=== PATIENT | male | born 1965 | race Caucasian/White ===

== ENCOUNTER 2018-03-11 15:19 | Inpatient (IN) | payer BC, OTHER ==
[2018-03-11] MEDS ORDERED: NS 0.9% 1000 ML* 1,000 ML IV ONE ×2 (15:34→17:11)
[2018-03-11 16:55] LABS: ALT 35 U/L (7-52); AST 23 U/L (13-39); Albumin 4.6 g/dL (3.2-5.2); Albumin/Globulin Ratio 1.2 (1-3); Alkaline Phosphatase 155 U/L (34-104); BUN/Creatinine Ratio 21.8 (8-20); Blood Urea Nitrogen 43 mg/dL (6-24); Calcium 9.1 mg/dL (8.6-10.3); Chloride 89 mmol/L (101-111); EGFR African American 43.8 (>60); EGFR Non-African American 36.2 (>60); Globulin 3.7 g/dL (2-4); Magnesium 2.7 mg/dL (1.9-2.7); Sodium 127 mmol/L (135-145); Total Protein 8.3 g/dL (6.4-8.9)
[2018-03-11 16:57] LABS: Influenza A Molecular NEGATIVE (Negative); Influenza B Molecular NEGATIVE (Negative)
--- NOTE | 2018-03-11 17:01 | ED ---
Influenza-Like Illness - HPI Summary HPI Summary: A 52 y/o male brought in by ambulance presents to the ED c/o the stomach flu reaching 5/10 in severity. In the ED room, the patient has a pulse of 109 BPM, O2 saturation of 100%, and blood pressure of 145/73. As per triage, "Patient states he was diagnosed with the stomach flu at and a right ear infection on . Patient was given amox rx". According to the patient, he was swabbed for the stomach flu but it came back negative. He stated that he has been sick since Wednesday. Additionally, is blood sugar is high as he is diabetic. Patient denies any headache, but does have blurred vision (brightness) , sore thraot, chest pain, back pain, and lower leg pain. He stated that he has an right ear infection. Patient stated that he is the only one sick at home. Patient denies any diarrhea, rash, bruising, anxiety, or depression, but has been vomiting. - History of Current Complaint Chief Complaint: EDGeneral Hx Obtained From: Patient Onset/Duration: Sudden Onset, Lasting Days, Still Present Severity: Moderate - 5/10 Associated Signs & Symptoms: Fever, Myalgia, Sore Throat, Vomiting - Allergy/Home Medications Allergies/Adverse Reactions: Allergies Allergy/AdvReac Type Severity Reaction Status Date / Time cephalexin [From Keflex] Allergy Rash Verified 03/11/18 16:29 PMH/Surg Hx/FS Hx/Imm Hx Endocrine/Hematology History: Reports: Hx Diabetes Cardiovascular History: Reports: Hx Hypercholesterolemia Sensory History: Reports: Hx Contacts or Glasses Opthamlomology History: Reports: Hx Contacts or Glasses Infectious Disease History: Yes Infectious Disease History: Denies: Traveled Outside the [place] in Last 30 Days - Family History Known Family History: Negative: Diabetes - Social History Alcohol Use: Daily Alcohol Amount: 8-16oz liquor, last drink was wednesday Substance Use Type: Reports: None Smoking Status (MU): Former Smoker Review of Systems Positive: Fever, Chills Positive: Blurred Vision, Other - NEGATIVE: DOUBLE VISION Positive: Sore Throat, Ear Ache - DUE TO EAR INFECTION IN RIGHT EAR Positive: Chest Pain Positive: Shortness Of Breath Positive: Vomiting, Other - NEGATIVE: BLOOD IN STOOL, CONSTIPATION. Negative: Abdominal Pain Negative: dysuria, hematuria Positive: Other - POSITIVE: BACK PAIN; NEGATIVE: NECK PAIN. Negative: Edema Negative: Rash, Bruising Negative: Headache Negative: Anxious, Depressed All Other Systems Reviewed And Are Negative: No Physical Exam - Summary Physical Exam Summary: Appearance: Alert, conversive, nontoxic appearing Skin: Warm, dry, no mottling, no rashes, no contusions HEENT: EOMI, PERRL, dry mucous membranes Neck: No masses on the neck, supple Respiratory: Clear to auscultation, breath sounds present, no rales, no rhonchi , no wheezes, dekipnic Cardiovascular: tachycardic, pulses are symmetrical in both lower and upper extremities Abdomen: Soft, non-tender Bowel Sounds: Present Musculoskeletal: No CVA tenderness, no obvious deformity, moving all extremities in a grossly normal manner Neurological: A&Ox3, CN II-XII Intact, moving all extremities symmetrically Psychiatric: Normal affect and mood Triage Information Reviewed: Yes Vital Signs On Initial Exam: Initial Vitals Temp Pulse Resp BP Pulse Ox 97.6 F 110 32 145/73 100 03/11/18 15:32 03/11/18 15:32 03/11/18 15:32 03/11/18 15:32 03/11/18 15:32 Vital Signs Reviewed: Yes Diagnostics - Vital Signs Vital Signs Temp Pulse Resp BP Pulse Ox 03/11/18 16:00 112 28 100 03/11/18 15:36 110 33 145/73 99 03/11/18 15:35 16 03/11/18 15:32 97.6 F 110 32 145/73 100 - Laboratory Result Diagrams: 03/11/18 16:14 03/11/18 16:14 Lab Statement: Any lab studies that have been ordered have been reviewed, and results considered in the medical decision making process. - Radiology CXR Radiology Interpretation Completed By: Radiologist Summary of Radiographic Findings: No evidence for acute intrathoracic disease. ED PHYSICIAN REVIEWED THIS RADIOLOGY REPORT. Flu Symptom Course/Dx - Course Course Of Treatment: A 52 y/o male brought in by ambulance presents to the ED c/ o the stomach flu reaching 5/10 in severity. A CXR revealed no evidence for acute intrathoracic disease. Hematology, Chemistry, and serology screens were done. Laboratory findings significant for high WBC of 23.1, hyperglycemia pf 756 , and high lactic acid 3.8. Influenza screens were negative. In the ED course, the patient received Insulin, Levaquin, Vancomycin, and IV fluids. Patient care was discussed with Dr. Lock, who accepts patient for admission. Patient will be admitted with a diagnosis of DKA. Patient is agreeable with this plan. - Diagnoses Provider Diagnoses: DKA (diabetic ketoacidosis) - Physician Notifications Discussed Care Of Patient With: Jr Lock Time Discussed With Above Provider: 17:20 Instructed by Provider To: Other - ACCEPTS PATIENT FOR ADMISSION. Discharge - Sign-Out/Discharge Documenting (check all that apply): Patient Departure - ADMIT, Sign-Out Patient - TORRI Signing out patient TO: Jr Lock Receiving patient FROM: Ronna Kinney - Discharge Plan Condition: Stable Disposition: ADMITTED TO [facility] Referrals: Danny Berkowitz MD [Primary Care Provider] - - Attestation Statements Document Initiated by Scribe: Yes Documenting Scribe: Corky Andrea Provider For Whom Scribe is Documenting (Include Credential): Ronna Kinney MD Scribe Attestation: Corky Floyd, scribed for Ronna Kinney MD on 03/11/18 at 1728. Status of Scribe Document: Ready
[2018-03-11 17:04] LABS: CO2 Carbon Dioxide < 7 mmol/L (22-32); Glucose 756 mg/dL (70-100); Hematocrit 54 % (42-52); Hemoglobin 16.6 g/dl (14.0-18.0); Mean Corpuscular HGB Conc 31 g/dl (31-36); Mean Corpuscular Hemoglobin 32 pg (27-31); Mean Corpuscular Volume 103 fL (80-94); Mean Platelet Volume 7.6 fL (7.4-10.4); Platelet Count 303 10^3/ul (150-450); Potassium 6.4 mmol/L (3.5-5.0); Red Blood Count 5.22 10^6/ul (4.00-5.40); Red Cell Distribution Width 14 % (10.5-15); White Blood Count 23.1 10^3/ul (3.5-10.8)
[2018-03-11] MEDS ORDERED: Vancomycin(*) 1,000 MG in NS 0.9% 250 ML* 250 ML IVPB ONE (17:06)
[2018-03-11] MEDS ORDERED: Levofloxacin 750 MG IVPREMIX(* 750 MG/150 ML BAG IVPB ONE (17:08)
[2018-03-11] MEDS ORDERED: Insulin IVPB 100 units/100 ml 100 UNITS/100 ML UNIT IVPB ONE (17:12)
[2018-03-11 17:29] LABS: TSH (Thyroid Stimulating Horm) 1.36 mcIU/mL (0.34-5.60)
[2018-03-11 17:33] LABS: ABS Basophils 0.3 10^3/ul (0-0.2); ABS Eosinophils 0 10^3/ul (0-0.6); ABS Lymphocytes 1.9 10^3/ul (1.0-4.8); ABS Monocytes 2.9 10^3/ul (0-0.8); ABS Nucleated RBC 0 10^3/ul; Eosinophil % 0.1 %; Lymphocyte % 8.1 %; Nucleated Red Blood Cells % 0
[2018-03-11] MEDS ORDERED: Acetaminophen TAB* 325 MG PO PRN (18:12)
[2018-03-11] MEDS ORDERED: Lactated Ringers 1000 ML Bag* 1,000 ML IV SCH ×3 (18:15→23:29)
--- NOTE | 2018-03-11 18:38 | HP ---
H&P (Free Text) History and Physical: [facility] History and Physical CC: flu like symptoms HPI: 52M with DM, HLD presents with what he calls the stomach flu. He has had nausea and has not been able to tolerate po. He was told he also has an ear infection and was given amoxicillin as an outpatient. He states that since hasnt been able to tolerate food he has not taken his insulin. In the ER he was found to be in DKA with a serum bicarb of < 7. His glucose was 750. He was in acute renal failure. The patient was start on iv fluids and an insulin gtt. He was given vanco/levaquin. He states that he drinks up to 16 oz of hard liquor per day. His last drink was on wednesday. ROS - as per HPI PMHx - hld, dm PSHx - denies All - cephalexin, sulfa SocHX - former smoker, +alcohol abuse, no drugs FamHx - heart disease PE Vital Signs: Temp Pulse Resp BP Pulse Ox 97.6 F 106 28 146/89 100 03/11/18 15:32 03/11/18 17:00 03/11/18 17:00 03/11/18 16:12 03/11/18 17:00 Gen - adult male, acutely ill heent - ncat, eomi, perrl neck - no jvd cv - s1/s2, tachy pulm - cta, no wheeze abd - soft, nt ext - no cce neuro - non-focal Labs Laboratory Results - last 24 hr 03/11/18 03/11/18 03/11/18 16:14 16:14 16:14 WBC 23.1 H RBC 5.22 Hgb 16.6 Hct 54 H MCV 103 H MCH 32 H MCHC 31 RDW 14 Plt Count 303 MPV 7.6 Neut % (Auto) 78.0 Lymph % (Auto) 8.1 Rankin % (Auto) 12.6 Eos % (Auto) 0.1 Baso % (Auto) 1.2 Absolute Neuts (auto) 18.0 H Absolute Lymphs (auto) 1.9 Absolute Monos (auto) 2.9 H Absolute Eos (auto) 0 Absolute Basos (auto) 0.3 H Absolute Nucleated RBC 0 Nucleated RBC % 0 VBG pH VBG pCO2 VBG pO2 VBG HCO3 VBG O2 Saturation VBG Base Excess Sodium 127 L Potassium 6.4 H* Chloride 89 L Carbon Dioxide < 7 L* Anion Gap Not Reportable BUN 43 H Creatinine 1.97 H Est GFR ( Amer) 43.8 Est GFR (Non-Af Amer) 36.2 BUN/Creatinine Ratio 21.8 H Glucose 756 H* Lactic Acid 3.8 H* Calcium 9.1 Magnesium 2.7 Total Bilirubin 0.40 AST 23 ALT 35 Alkaline Phosphatase 155 H Total Protein 8.3 Albumin 4.6 Globulin 3.7 Albumin/Globulin Ratio 1.2 TSH 1.36 Influenza A (Rapid) Influenza B (Rapid) 03/11/18 03/11/18 16:45 18:01 WBC RBC Hgb Hct MCV MCH MCHC RDW Plt Count MPV Neut % (Auto) Lymph % (Auto) Rankin % (Auto) Eos % (Auto) Baso % (Auto) Absolute Neuts (auto) Absolute Lymphs (auto) Absolute Monos (auto) Absolute Eos (auto) Absolute Basos (auto) Absolute Nucleated RBC Nucleated RBC % VBG pH < 7.00 L VBG pCO2 30 L VBG pO2 39.0 VBG HCO3 TNP VBG O2 Saturation 70.4 VBG Base Excess TNP Sodium Potassium Chloride Carbon Dioxide Anion Gap BUN Creatinine Est GFR ( Amer) Est GFR (Non-Af Amer) BUN/Creatinine Ratio Glucose Lactic Acid Calcium Magnesium Total Bilirubin AST ALT Alkaline Phosphatase Total Protein Albumin Globulin Albumin/Globulin Ratio TSH Influenza A (Rapid) Negative Influenza B (Rapid) Negative Imaging IMPRESSION: #. No evidence for acute intrathoracic disease. Impression 52M with hld, dm, etoh abuse presents with DKA precipitated by an ear infection Plan DKA - npo - aggressive iv hydration - insulin gtt - fs q1h - serial bmp, mg, phos - anti-emetics prn - pain control etoh abuse - monitor for withdrawal - WA protocol - ativan prn - thiamine/folate/mvi - sw consult ear infection - c/w augmentin lines - piv ppx - gi/dvt full code Admit to ICU Critical Care Time: 55 mins
[2018-03-11] MEDS ORDERED: Levofloxacin 750 MG IVPREMIX(* 750 MG/150 ML BAG IVPB SCH (19:00)
[2018-03-11] MEDS ORDERED: Insulin IVPB 100 units/100 ml 100 UNITS/100 ML UNIT IVPB SCH ×2 (19:00)
[2018-03-11] MEDS ORDERED: LORazepam INJ* 2 MG/ML 1 ML VIAL IM SCH (19:00)
[2018-03-11] MEDS ORDERED: Amoxicillin/Clavulanate TAB* 875 MG PO SCH (21:00)
[2018-03-11] MEDS ORDERED: Omeprazole CAP(NF) 10 MG CAP PO SCH (21:00)
[2018-03-11 23:01] LABS: BUN/Creatinine Ratio 25.2 (8-20); Blood Urea Nitrogen 51 mg/dL (6-24); Calcium 8.6 mg/dL (8.6-10.3); Chloride 97 mmol/L (101-111); EGFR African American 42.5 (>60); EGFR Non-African American 35.1 (>60); Magnesium 2.6 mg/dL (1.9-2.7); Phosphorus 3.5 mg/dL (2.5-5.0); Sodium 132 mmol/L (135-145)
[2018-03-11 23:15] LABS: CO2 Carbon Dioxide < 7 mmol/L (22-32); Glucose 628 mg/dL (70-100); Potassium 5.5 mmol/L (3.5-5.0)
--- NOTE | 2018-03-11 23:31 | PN ---
Hospitalist Progress Note Date of Service: 03/11/18 Glucose and potassium trending down, but bicarb still <7. Will add bicarb drip and repeat BMP at 2 AM.
[2018-03-12] MEDS ORDERED: Sodium Bicarbonate 8.4% IV* 50 MEQ in NS 0.9% 1000 ML* 1,000 ML IV ONE (00:30)
[2018-03-12 02:01] LABS: BUN/Creatinine Ratio 28.1 (8-20); Calcium 8.6 mg/dL (8.6-10.3); EGFR African American 45.1 (>60); EGFR Non-African American 37.3 (>60); Potassium 4.4 mmol/L (3.5-5.0)
[2018-03-12 02:50] LABS: Urine Appearance Cloudy; Urine Bacteria Absent (Absent); Urine Bilirubin Negative (Negative); Urine Blood 2+ (Negative); Urine Color Yellow; Urine Glucose 3+(>=500 mg/dL) (Negative); Urine Ketones 2+ (Negative); Urine Nitrite Negative (Negative); Urine Protein 1+(30 mg/dL) (Negative); Urine Red Blood Cell Trace(0-2/hpf) (Absent); Urine Specific Gravity 1.017 (1.010-1.030); Urine Urobilinogen Negative (Negative); Urine White Blood Cell Trace(0-5/hpf) (Absent)
[2018-03-12] MEDS ORDERED: Piperacillin/Tazobac ADVAN(*) 3.375 GM in NS 0.9% 100 ML* 100 ML IVPB ONE (03:30)
[2018-03-12] MEDS ORDERED: Zosyn per Pharmacy* NOTE FOLLOW UP SCH (04:00)
[2018-03-12] MEDS ORDERED: D5LR 1000 ML BAG* 1,000 ML IV SCH (05:00)
[2018-03-12 05:29] LABS: Hematocrit 43 % (42-52); Hemoglobin 14.6 g/dl (14.0-18.0); Mean Corpuscular HGB Conc 34 g/dl (31-36); Mean Corpuscular Hemoglobin 31 pg (27-31); Mean Corpuscular Volume 92 fL (80-94); Mean Platelet Volume 6.6 fL (7.4-10.4); Platelet Count 196 10^3/ul (150-450); Red Blood Count 4.67 10^6/ul (4.00-5.40); Red Cell Distribution Width 13 % (10.5-15); White Blood Count 15.8 10^3/ul (3.5-10.8)
[2018-03-12 05:44] LABS: Anion Gap 11 mmol/L (2-11); BUN/Creatinine Ratio 30.4 (8-20); Blood Urea Nitrogen 51 mg/dL (6-24); CO2 Carbon Dioxide 19 mmol/L (22-32); Calcium 8.3 mg/dL (8.6-10.3); Chloride 110 mmol/L (101-111); EGFR African American 52.6 (>60); EGFR Non-African American 43.5 (>60); Glucose 203 mg/dL (70-100); Potassium 3.8 mmol/L (3.5-5.0); Sodium 140 mmol/L (135-145)
[2018-03-12 05:45] LABS: Phosphorus < 1.0 mg/dL (2.5-5.0)
[2018-03-12 05:52] LABS: Lymphocytes % 9 %; Metamyelocytes % 1 % (0-2); Monocytes % 4 %; Myelocytes % 2 % (0-1); Neutrophil % 75 %
[2018-03-12 05:53] LABS: Immature Granulocytes 12 % (0-9)
[2018-03-12 05:54] LABS: ABS Neutrophils 13.75 10^3/ul (1.5-7.7)
[2018-03-12] MEDS ORDERED: Potassium Phosphate IV* 15 MMOLE in NS 0.9% 250 ML* 250 ML IVPB ONE (06:00)
[2018-03-12] MEDS: Insulin IVPB 100 units/100 ml 100 UNITS/100 ML UNIT IVPB SCH ×3 (07:12→19:20)
[2018-03-12] MEDS: ZOSYN 3.375 GM Q8H per EXTENDED INFUSION IVPB SCH ×6 (07:36→23:35)
[2018-03-12] MEDS: Multivitamins/Minerals TAB PO SCH (07:37)
[2018-03-12] MEDS: Folic Acid TAB* 1 MG PO SCH (07:37)
[2018-03-12] MEDS: Potassium & Sodium Phos 250MG* = 1 PACKET PO SCH ×3 (07:37→21:13)
[2018-03-12] MEDS: Aspirin EC TAB* 81 MG TAB.EC PO SCH (07:37)
[2018-03-12] MEDS: Thiamine TAB* 100 MG TAB PO SCH (07:37)
[2018-03-12 11:24] LABS: BUN/Creatinine Ratio 25.8 (8-20); Calcium 8.1 mg/dL (8.6-10.3); EGFR African American 57.7 (>60); EGFR Non-African American 47.7 (>60); Potassium 4.1 mmol/L (3.5-5.0)
[2018-03-12 11:48] LABS: Phosphorus 1.9 mg/dL (2.5-5.0)
[2018-03-12] MEDS ORDERED: Insulin GLARGINE(*) 1 UNITS UNIT SUBCUT ONE (12:33)
[2018-03-12] MEDS ORDERED: Potassium Phosphate IV* 10 MMOLE in NS 0.9% 250 ML* 250 ML IVPB ONE (12:36)
--- NOTE | 2018-03-12 13:02 | PN ---
Date of Service: 03/12/18 - [facility] note Critical Care Services: Pt seen and examined at bedside, pt admitted for DKA. Pt denied any complaints this am other than fatigue 52 y o m with h/o DM, HLD presented with stomach flu. He had an ear infection and was given amoxicillin as an outpatient. He was not been able to tolerate food, has not taken his insulin. He was found to be in severe DKA with metabolic acidosis, serum bicarb of < 7. His glucose on admission was 750, was in acute renal failure. Patient received iv fluids and an insulin gtt. He was given vanco/levaquin. He states that he drinks up to 16 oz of hard liquor per day, last drink was on Wednesday. Pt reported that he doesnot stay complaint with Insulin when he drinks. Active Medications Generic Name Dose Route Start Last Admin Trade Name Freq PRN Reason Stop Dose Admin Acetaminophen 650 mg 03/11/18 18:12 Tylenol Tab* PO Q4H PRN PAIN Al Hydrox/Mg Hydrox/Simethicone 30 ml 03/11/18 18:13 Maalox Plus* PO Q4H PRN INDIGESTION Aspirin 81 mg 03/12/18 09:00 03/12/18 07:37 Aspirin Ec Tab* PO 81 mg DAILY JINA Administration Atorvastatin Calcium 10 mg 03/12/18 17:00 Lipitor* PO 1700 JINA Protocol Folic Acid 1 mg 03/12/18 09:00 03/12/18 07:37 Folvite Tab* PO 1 mg DAILY JINA Administration Piperacillin Sod/Tazobactam 100 mls @ 25 mls/hr 03/12/18 08:00 03/12/18 07:36 Sod 3.375 gm/ Sodium Chloride IVPB 25 mls/hr Q8H JINA Administration Dextrose/Lactated Ringer's 1,000 mls @ 100 mls/hr 03/12/18 05:00 03/12/18 05: 07 D5lr 1000 Ml Bag* IV 100 mls/hr PER RATE JINA Administration Insulin Human Regular 100 units in 100 mls @ 17 mls/hr 03/12/18 07:00 07:12 Insulin Regular Iv Drip 1 Unit/Ml IVPB 8.6 mls/hr Q6H JINA Administration Protocol Potassium Phosphate 10 mmole/ 253.3333 mls @ 42 mls/hr 03/12/18 12:36 Sodium Chloride IVPB 03/12/18 18:37 ONCE ONE Insulin Glargine 20 units 03/13/18 13:00 Lantus(*) SUBCUT Q24H [facility] Lorazepam 0 - 6 mg 03/11/18 19:00 Ativan Inj* IM .PER [facility] PROTOCOL [facility] Protocol Morphine Sulfate 2 mg 03/11/18 18:11 Morphine Vial* IV Q2H PRN PAIN Multivitamins/Minerals 1 tab 03/12/18 09:00 03/12/18 07:37 Theragran/Minerals Tab* PO 1 tab DAILY JINA Administration Ondansetron HCl 4 mg 03/11/18 18:12 Zofran Inj* IV Q6H PRN NAUSEA Pantoprazole Sodium 40 mg 03/12/18 21:00 Protonix Tab (Nf) PO BEDTIME [facility] Pharmacy Consult 1 note 03/12/18 04:00 Zosyn Per Pharmacy* FOLLOW UP .ZOSYN PER PHARMACY [facility] Potassium Phos/Sodium Phos 250 mg 03/12/18 09:00 03/12/18 07:37 Neutra Phos 250 Mg Avelino* PO 250 mg TID JINA Administration Thiamine HCl 100 mg 03/12/18 09:00 03/12/18 07:37 Vitamin B-1 Tab* PO 100 mg DAILY JINA Administration Vital Signs: Temp Pulse Resp BP SpO2 FiO2 97.8 F 94 23 115/69 95 03/12/18 12:54 03/12/18 12:30 03/12/18 12:30 03/12/18 12:30 03/12/18 12:30 Physical Exam: Gen: Pt sitting in chair in NAD HEENT:PERRLA, no JVD Lungs: Clear to auscultation b/l Cardiac: S1, S2+, regular Abdomen: Soft, BS+ Extremities: Normal ROM Neuro: Alert, awake, no deficits Fluid Balance (Past 24 Hours): I= 60 O= 850 Net -790 Intake & Output 03/10/18 03/11/18 03/12/18 03/13/18 06:59 06:59 06:59 06:59 Intake Total 3358 60 Output Total 775 850 Balance 2583 -790 Weight 181 lb 3.52 oz Intake: IV Fluids 2862 D5W LR 140 LR 1719 NS (0.9%) 3 IVPB 360 ABX - VANCOMYCIN 250 ABX - ZOSYN 110 Medicated IV 136 CC - Insulin 136 Oral 0 60 Output: Urine 775 850 Labs: Laboratory Results - last 24 hr 03/11/18 03/11/18 03/11/18 16:14 16:14 16:14 WBC 23.1 H RBC 5.22 Hgb 16.6 Hct 54 H MCV 103 H MCH 32 H MCHC 31 RDW 14 Plt Count 303 MPV 7.6 Neut % (Auto) 78.0 Lymph % (Auto) 8.1 [place] % (Auto) 12.6 Eos % (Auto) 0.1 Baso % (Auto) 1.2 Absolute Neuts (auto) 18.0 H Absolute Lymphs (auto) 1.9 Absolute Monos (auto) 2.9 H Absolute Eos (auto) 0 Absolute Basos (auto) 0.3 H Absolute Nucleated RBC 0 Immature Gran % Neutrophils % Band Neutrophils % Lymphocytes % Monocytes % Metamyelocytes % Myelocytes % Nucleated RBC % 0 Abs Neuts (Manual) Abs Lymphs (Manual) Abs Monocytes (Manual) Normal RBC Morphology VBG pH VBG pCO2 VBG pO2 VBG HCO3 VBG O2 Saturation VBG Base Excess Sodium 127 L Potassium 6.4 H* Chloride 89 L Carbon Dioxide < 7 L* Anion Gap Not Reportable BUN 43 H Creatinine 1.97 H Est GFR ( Amer) 43.8 Est GFR (Non-Af Amer) 36.2 BUN/Creatinine Ratio 21.8 H Glucose 756 H* POC Glucose (mg/dL) Hemoglobin A1c Lactic Acid 3.8 H* Calcium 9.1 Phosphorus Magnesium 2.7 Total Bilirubin 0.40 AST 23 ALT 35 Alkaline Phosphatase 155 H Total Protein 8.3 Albumin 4.6 Globulin 3.7 Albumin/Globulin Ratio 1.2 TSH 1.36 Urine Color Urine Appearance Urine pH Ur Specific [place] Urine Protein Urine Ketones Urine Blood Urine Nitrate Urine Bilirubin Urine Urobilinogen Ur Leukocyte Esterase Urine WBC (Auto) Urine RBC (Auto) Urine Bacteria Hyaline Casts Urine Glucose Influenza A (Rapid) Influenza B (Rapid) 03/11/18 03/11/18 03/11/18 16:45 18:01 18:32 WBC RBC Hgb Hct MCV MCH MCHC RDW Plt Count MPV Neut % (Auto) Lymph % (Auto) [place] % (Auto) Eos % (Auto) Baso % (Auto) Absolute Neuts (auto) Absolute Lymphs (auto) Absolute Monos (auto) Absolute Eos (auto) Absolute Basos (auto) Absolute Nucleated RBC Immature Gran % Neutrophils % Band Neutrophils % Lymphocytes % Monocytes % Metamyelocytes % Myelocytes % Nucleated RBC % Abs Neuts (Manual) Abs Lymphs (Manual) Abs Monocytes (Manual) Normal RBC Morphology VBG pH < 7.00 L VBG pCO2 30 L VBG pO2 39.0 VBG HCO3 TNP VBG O2 Saturation 70.4 VBG Base Excess TNP Sodium Potassium Chloride Carbon Dioxide Anion Gap BUN Creatinine Est GFR ( Amer) Est GFR (Non-Af Amer) BUN/Creatinine Ratio Glucose POC Glucose (mg/dL) > 444 H* Hemoglobin A1c Lactic Acid Calcium Phosphorus Magnesium Total Bilirubin AST ALT Alkaline Phosphatase Total Protein Albumin Globulin Albumin/Globulin Ratio TSH Urine Color Urine Appearance Urine pH Ur Specific [place] Urine Protein Urine Ketones Urine Blood Urine Nitrate Urine Bilirubin Urine Urobilinogen Ur Leukocyte Esterase Urine WBC (Auto) Urine RBC (Auto) Urine Bacteria Hyaline Casts Urine Glucose Influenza A (Rapid) Negative Influenza B (Rapid) Negative 03/11/18 03/11/18 03/11/18 18:46 20:19 20:25 WBC RBC Hgb Hct MCV MCH MCHC RDW Plt Count MPV Neut % (Auto) Lymph % (Auto) [place] % (Auto) Eos % (Auto) Baso % (Auto) Absolute Neuts (auto) Absolute Lymphs (auto) Absolute Monos (auto) Absolute Eos (auto) Absolute Basos (auto) Absolute Nucleated RBC Immature Gran % Neutrophils % Band Neutrophils % Lymphocytes % Monocytes % Metamyelocytes % Myelocytes % Nucleated RBC % Abs Neuts (Manual) Abs Lymphs (Manual) Abs Monocytes (Manual) Normal RBC Morphology VBG pH VBG pCO2 VBG pO2 VBG HCO3 VBG O2 Saturation VBG Base Excess Sodium Potassium Chloride Carbon Dioxide Anion Gap BUN Creatinine Est GFR ( Amer) Est GFR (Non-Af Amer) BUN/Creatinine Ratio Glucose 758 H* 693 H* POC Glucose (mg/dL) > 444 H* Hemoglobin A1c Lactic Acid Calcium Phosphorus Magnesium Total Bilirubin AST ALT Alkaline Phosphatase Total Protein Albumin Globulin Albumin/Globulin Ratio TSH Urine Color Urine Appearance Urine pH Ur Specific [place] Urine Protein Urine Ketones Urine Blood Urine Nitrate Urine Bilirubin Urine Urobilinogen Ur Leukocyte Esterase Urine WBC (Auto) Urine RBC (Auto) Urine Bacteria Hyaline Casts Urine Glucose Influenza A (Rapid) Influenza B (Rapid) 03/11/18 03/11/18 03/11/18 21:35 21:35 22:35 WBC RBC Hgb Hct MCV MCH MCHC RDW Plt Count MPV Neut % (Auto) Lymph % (Auto) [place] % (Auto) Eos % (Auto) Baso % (Auto) Absolute Neuts (auto) Absolute Lymphs (auto) Absolute Monos (auto) Absolute Eos (auto) Absolute Basos (auto) Absolute Nucleated RBC Immature Gran % Neutrophils % Band Neutrophils % Lymphocytes % Monocytes % Metamyelocytes % Myelocytes % Nucleated RBC % Abs Neuts (Manual) Abs Lymphs (Manual) Abs Monocytes (Manual) Normal RBC Morphology VBG pH VBG pCO2 VBG pO2 VBG HCO3 VBG O2 Saturation VBG Base Excess Sodium 132 L Potassium 5.5 H Chloride 97 L Carbon Dioxide < 7 L* Anion Gap Not Reportable BUN 51 H Creatinine 2.02 H Est GFR ( Amer) 42.5 Est GFR (Non-Af Amer) 35.1 BUN/Creatinine Ratio 25.2 H Glucose 677 H* 628 H* POC Glucose (mg/dL) > 444 H* Hemoglobin A1c Lactic Acid Calcium 8.6 Phosphorus 3.5 Magnesium 2.6 Total Bilirubin AST ALT Alkaline Phosphatase Total Protein Albumin Globulin Albumin/Globulin Ratio TSH Urine Color Urine Appearance Urine pH Ur Specific [place] Urine Protein Urine Ketones Urine Blood Urine Nitrate Urine Bilirubin Urine Urobilinogen Ur Leukocyte Esterase Urine WBC (Auto) Urine RBC (Auto) Urine Bacteria Hyaline Casts Urine Glucose Influenza A (Rapid) Influenza B (Rapid) 03/11/18 03/11/18 03/11/18 22:35 22:36 23:25 WBC RBC Hgb Hct MCV MCH MCHC RDW Plt Count MPV Neut % (Auto) Lymph % (Auto) [place] % (Auto) Eos % (Auto) Baso % (Auto) Absolute Neuts (auto) Absolute Lymphs (auto) Absolute Monos (auto) Absolute Eos (auto) Absolute Basos (auto) Absolute Nucleated RBC Immature Gran % Neutrophils % Band Neutrophils % Lymphocytes % Monocytes % Metamyelocytes % Myelocytes % Nucleated RBC % Abs Neuts (Manual) Abs Lymphs (Manual) Abs Monocytes (Manual) Normal RBC Morphology VBG pH VBG pCO2 VBG pO2 VBG HCO3 VBG O2 Saturation VBG Base Excess Sodium Potassium Chloride Carbon Dioxide Anion Gap BUN Creatinine Est GFR ( Amer) Est GFR (Non-Af Amer) BUN/Creatinine Ratio Glucose 574 H* POC Glucose (mg/dL) > 444 H* Hemoglobin A1c 10.6 H Lactic Acid Calcium Phosphorus Magnesium Total Bilirubin AST ALT Alkaline Phosphatase Total Protein Albumin Globulin Albumin/Globulin Ratio TSH Urine Color Urine Appearance Urine pH Ur Specific [place] Urine Protein Urine Ketones Urine Blood Urine Nitrate Urine Bilirubin Urine Urobilinogen Ur Leukocyte Esterase Urine WBC (Auto) Urine RBC (Auto) Urine Bacteria Hyaline Casts Urine Glucose Influenza A (Rapid) Influenza B (Rapid) 03/11/18 03/12/18 03/12/18 23:26 00:30 00:33 WBC RBC Hgb Hct MCV MCH MCHC RDW Plt Count MPV Neut % (Auto) Lymph % (Auto) [place] % (Auto) Eos % (Auto) Baso % (Auto) Absolute Neuts (auto) Absolute Lymphs (auto) Absolute Monos (auto) Absolute Eos (auto) Absolute Basos (auto) Absolute Nucleated RBC Immature Gran % Neutrophils % Band Neutrophils % Lymphocytes % Monocytes % Metamyelocytes % Myelocytes % Nucleated RBC % Abs Neuts (Manual) Abs Lymphs (Manual) Abs Monocytes (Manual) Normal RBC Morphology VBG pH VBG pCO2 VBG pO2 VBG HCO3 VBG O2 Saturation VBG Base Excess Sodium Potassium Chloride Carbon Dioxide Anion Gap BUN Creatinine Est GFR ( Amer) Est GFR (Non-Af Amer) BUN/Creatinine Ratio Glucose 492 H POC Glucose (mg/dL) > 444 H* > 444 H* Hemoglobin A1c Lactic Acid Calcium Phosphorus Magnesium Total Bilirubin AST ALT Alkaline Phosphatase Total Protein Albumin Globulin Albumin/Globulin Ratio TSH Urine Color Urine Appearance Urine pH Ur Specific [place] Urine Protein Urine Ketones Urine Blood Urine Nitrate Urine Bilirubin Urine Urobilinogen Ur Leukocyte Esterase Urine WBC (Auto) Urine RBC (Auto) Urine Bacteria Hyaline Casts Urine Glucose Influenza A (Rapid) Influenza B (Rapid) 03/12/18 03/12/18 03/12/18 01:29 01:30 02:36 WBC RBC Hgb Hct MCV MCH MCHC RDW Plt Count MPV Neut % (Auto) Lymph % (Auto) [place] % (Auto) Eos % (Auto) Baso % (Auto) Absolute Neuts (auto) Absolute Lymphs (auto) Absolute Monos (auto) Absolute Eos (auto) Absolute Basos (auto) Absolute Nucleated RBC Immature Gran % Neutrophils % Band Neutrophils % Lymphocytes % Monocytes % Metamyelocytes % Myelocytes % Nucleated RBC % Abs Neuts (Manual) Abs Lymphs (Manual) Abs Monocytes (Manual) Normal RBC Morphology VBG pH VBG pCO2 VBG pO2 VBG HCO3 VBG O2 Saturation VBG Base Excess Sodium 136 Potassium 4.4 Chloride 103 Carbon Dioxide 10 L* Anion Gap 23 H BUN 54 H Creatinine 1.92 H Est GFR ( Amer) 45.1 Est GFR (Non-Af Amer) 37.3 BUN/Creatinine Ratio 28.1 H Glucose 425 H POC Glucose (mg/dL) 401 H* 331 H Hemoglobin A1c Lactic Acid Calcium 8.6 Phosphorus Magnesium Total Bilirubin AST ALT Alkaline Phosphatase Total Protein Albumin Globulin Albumin/Globulin Ratio TSH Urine Color Urine Appearance Urine pH Ur Specific [place] Urine Protein Urine Ketones Urine Blood Urine Nitrate Urine Bilirubin Urine Urobilinogen Ur Leukocyte Esterase Urine WBC (Auto) Urine RBC (Auto) Urine Bacteria Hyaline Casts Urine Glucose Influenza A (Rapid) Influenza B (Rapid) 03/12/18 03/12/18 03/12/18 02:37 03:31 04:32 WBC RBC Hgb Hct MCV MCH MCHC RDW Plt Count MPV Neut % (Auto) Lymph % (Auto) [place] % (Auto) Eos % (Auto) Baso % (Auto) Absolute Neuts (auto) Absolute Lymphs (auto) Absolute Monos (auto) Absolute Eos (auto) Absolute Basos (auto) Absolute Nucleated RBC Immature Gran % Neutrophils % Band Neutrophils % Lymphocytes % Monocytes % Metamyelocytes % Myelocytes % Nucleated RBC % Abs Neuts (Manual) Abs Lymphs (Manual) Abs Monocytes (Manual) Normal RBC Morphology VBG pH VBG pCO2 VBG pO2 VBG HCO3 VBG O2 Saturation VBG Base Excess Sodium Potassium Chloride Carbon Dioxide Anion Gap BUN Creatinine Est GFR ( Amer) Est GFR (Non-Af Amer) BUN/Creatinine Ratio Glucose POC Glucose (mg/dL) 312 H 221 H Hemoglobin A1c Lactic Acid Calcium Phosphorus Magnesium Total Bilirubin AST ALT Alkaline Phosphatase Total Protein Albumin Globulin Albumin/Globulin Ratio TSH Urine Color Yellow Urine Appearance Cloudy Urine pH 5.0 Ur Specific [place] 1.017 Urine Protein 1+(30 mg/dl) A Urine Ketones 2+ A Urine Blood 2+ A Urine Nitrate Negative Urine Bilirubin Negative Urine Urobilinogen Negative Ur Leukocyte Esterase Negative Urine WBC (Auto) Trace(0-5/hpf) Urine RBC (Auto) Trace(0-2/hpf) Urine Bacteria Absent Hyaline Casts Present A Urine Glucose 3+(>=500 mg/dl) A Influenza A (Rapid) Influenza B (Rapid) 03/12/18 03/12/18 03/12/18 05:15 05:15 05:16 WBC 15.8 H RBC 4.67 Hgb 14.6 Hct 43 MCV 92 MCH 31 MCHC 34 RDW 13 Plt Count 196 MPV 6.6 L Neut % (Auto) Not Reportable Lymph % (Auto) Not Reportable [place] % (Auto) Not Reportable Eos % (Auto) Not Reportable Baso % (Auto) Not Reportable Absolute Neuts (auto) Not Reportable Absolute Lymphs (auto) Not Reportable Absolute Monos (auto) Not Reportable Absolute Eos (auto) Not Reportable Absolute Basos (auto) Not Reportable Absolute Nucleated RBC Not Reportable Immature Gran % 12 H Neutrophils % 75 Band Neutrophils % 9 H Lymphocytes % 9 Monocytes % 4 Metamyelocytes % 1 Myelocytes % 2 H Nucleated RBC % Not Reportable Abs Neuts (Manual) 13.75 H Abs Lymphs (Manual) 1.422 Abs Monocytes (Manual) 0.632 Normal RBC Morphology Normal VBG pH VBG pCO2 VBG pO2 VBG HCO3 VBG O2 Saturation VBG Base Excess Sodium 140 Potassium 3.8 Chloride 110 Carbon Dioxide 19 L Anion Gap 11 BUN 51 H Creatinine 1.68 H Est GFR ( Amer) 52.6 Est GFR (Non-Af Amer) 43.5 BUN/Creatinine Ratio 30.4 H Glucose 203 H POC Glucose (mg/dL) 185 H Hemoglobin A1c Lactic Acid Calcium 8.3 L Phosphorus < 1.0 L* Magnesium 2.0 Total Bilirubin AST ALT Alkaline Phosphatase Total Protein Albumin Globulin Albumin/Globulin Ratio TSH Urine Color Urine Appearance Urine pH Ur Specific [place] Urine Protein Urine Ketones Urine Blood Urine Nitrate Urine Bilirubin Urine Urobilinogen Ur Leukocyte Esterase Urine WBC (Auto) Urine RBC (Auto) Urine Bacteria Hyaline Casts Urine Glucose Influenza A (Rapid) Influenza B (Rapid) 03/12/18 03/12/18 03/12/18 06:28 07:35 08:35 WBC RBC Hgb Hct MCV MCH MCHC RDW Plt Count MPV Neut % (Auto) Lymph % (Auto) [place] % (Auto) Eos % (Auto) Baso % (Auto) Absolute Neuts (auto) Absolute Lymphs (auto) Absolute Monos (auto) Absolute Eos (auto) Absolute Basos (auto) Absolute Nucleated RBC Immature Gran % Neutrophils % Band Neutrophils % Lymphocytes % Monocytes % Metamyelocytes % Myelocytes % Nucleated RBC % Abs Neuts (Manual) Abs Lymphs (Manual) Abs Monocytes (Manual) Normal RBC Morphology VBG pH VBG pCO2 VBG pO2 VBG HCO3 VBG O2 Saturation VBG Base Excess Sodium Potassium Chloride Carbon Dioxide Anion Gap BUN Creatinine Est GFR ( Amer) Est GFR (Non-Af Amer) BUN/Creatinine Ratio Glucose POC Glucose (mg/dL) 134 H 144 H 128 H Hemoglobin A1c Lactic Acid Calcium Phosphorus Magnesium Total Bilirubin AST ALT Alkaline Phosphatase Total Protein Albumin Globulin Albumin/Globulin Ratio TSH Urine Color Urine Appearance Urine pH Ur Specific [place] Urine Protein Urine Ketones Urine Blood Urine Nitrate Urine Bilirubin Urine Urobilinogen Ur Leukocyte Esterase Urine WBC (Auto) Urine RBC (Auto) Urine Bacteria Hyaline Casts Urine Glucose Influenza A (Rapid) Influenza B (Rapid) 03/12/18 03/12/18 03/12/18 09:27 10:30 11:03 WBC RBC Hgb Hct MCV MCH MCHC RDW Plt Count MPV Neut % (Auto) Lymph % (Auto) [place] % (Auto) Eos % (Auto) Baso % (Auto) Absolute Neuts (auto) Absolute Lymphs (auto) Absolute Monos (auto) Absolute Eos (auto) Absolute Basos (auto) Absolute Nucleated RBC Immature Gran % Neutrophils % Band Neutrophils % Lymphocytes % Monocytes % Metamyelocytes % Myelocytes % Nucleated RBC % Abs Neuts (Manual) Abs Lymphs (Manual) Abs Monocytes (Manual) Normal RBC Morphology VBG pH VBG pCO2 VBG pO2 VBG HCO3 VBG O2 Saturation VBG Base Excess Sodium 138 Potassium 4.1 Chloride 108 Carbon Dioxide 22 Anion Gap 8 BUN 40 H Creatinine 1.55 H Est GFR ( Amer) 57.7 Est GFR (Non-Af Amer) 47.7 BUN/Creatinine Ratio 25.8 H Glucose 248 H POC Glucose (mg/dL) 117 H 229 H Hemoglobin A1c Lactic Acid Calcium 8.1 L Phosphorus 1.9 L Magnesium 2.0 Total Bilirubin AST ALT Alkaline Phosphatase Total Protein Albumin Globulin Albumin/Globulin Ratio TSH Urine Color Urine Appearance Urine pH Ur Specific [place] Urine Protein Urine Ketones Urine Blood Urine Nitrate Urine Bilirubin Urine Urobilinogen Ur Leukocyte Esterase Urine WBC (Auto) Urine RBC (Auto) Urine Bacteria Hyaline Casts Urine Glucose Influenza A (Rapid) Influenza B (Rapid) 03/12/18 12:32 WBC RBC Hgb Hct MCV MCH MCHC RDW Plt Count MPV Neut % (Auto) Lymph % (Auto) [place] % (Auto) Eos % (Auto) Baso % (Auto) Absolute Neuts (auto) Absolute Lymphs (auto) Absolute Monos (auto) Absolute Eos (auto) Absolute Basos (auto) Absolute Nucleated RBC Immature Gran % Neutrophils % Band Neutrophils % Lymphocytes % Monocytes % Metamyelocytes % Myelocytes % Nucleated RBC % Abs Neuts (Manual) Abs Lymphs (Manual) Abs Monocytes (Manual) Normal RBC Morphology VBG pH VBG pCO2 VBG pO2 VBG HCO3 VBG O2 Saturation VBG Base Excess Sodium Potassium Chloride Carbon Dioxide Anion Gap BUN Creatinine Est GFR ( Amer) Est GFR (Non-Af Amer) BUN/Creatinine Ratio Glucose POC Glucose (mg/dL) 269 H Hemoglobin A1c Lactic Acid Calcium Phosphorus Magnesium Total Bilirubin AST ALT Alkaline Phosphatase Total Protein Albumin Globulin Albumin/Globulin Ratio TSH Urine Color Urine Appearance Urine pH Ur Specific [place] Urine Protein Urine Ketones Urine Blood Urine Nitrate Urine Bilirubin Urine Urobilinogen Ur Leukocyte Esterase Urine WBC (Auto) Urine RBC (Auto) Urine Bacteria Hyaline Casts Urine Glucose Influenza A (Rapid) Influenza B (Rapid) Impression: 52M with HLD, DM, Etoh abuse presents with DKA precipitated by an ear infection , stomach flu and non-compliance to Insulin. 1.DKA- Improving, AG closed 2.Severe metabolic acidosis sec to DKA- resolved 3.ARF sec to dehydration 4.ETOH abuse, not in withdrawal 5.Leucocytosis Plan: Neuro: Alert, awake, was slightly drowsy this am. No focal deficits. H/o ETOH abuse, on VAM protocol. Ativan prn. Aspiration, seizure precautions. CVS: No issue, hemodynamically stable. H/o dyslipidemia Resp: No issues, stable Endo: DKA- AG closed at 11:30, long acting Insulin administered, will turn off drip in 1 hr, c/w carbohydrate diet. Insulin SS coverage GI: Diabetic diet ordered. Nausea, diarrhea resolved. c/w thiamine/folate/mvi ID: Pt with ear infection, being treated with Amoxicillin. Changed to Zosyn Day# 2/7. Leucocytosis improving. Acidosis resolved Haem: No issues Renal: ARF- improving, received fluid resuscitation on admission, monitor UO, I/ O , serial bmp, replete mg, phos Musculoskeletal: OOB to chair IV access: Peripheral PPX GI/DVT Full code Critical Care Time: 45 min
[2018-03-12] MEDS: Ondansetron INJ* 2 MG/ML VIAL IV PRN (14:35)
[2018-03-12] MEDS ORDERED: Dextrose 50% Syringe 50 ML* 25 GM/50 ML SYRINGE IV PUSH PRN ×2 (14:50→16:52)
[2018-03-12] MEDS: Atorvastatin* 10 MG TAB PO SCH (16:59)
[2018-03-12] MEDS ORDERED: Metoclopramide IV* 5 MG/ML 2 ML VIAL IV PRN (17:22)
[2018-03-12] MEDS: Insulin LISPRO* 1 UNITS UNIT SUBCUT SCH ×4 (17:27→21:14)
[2018-03-12 18:23] LABS: Phosphorus 1.7 mg/dL (2.5-5.0)
[2018-03-12] MEDS: Morphine VIAL* 4 MG/ML VIAL (1 ml vial) IV PRN ×2 (19:34→23:44)
[2018-03-12] MEDS: Pantoprazole TAB * 40 MG TAB PO SCH (21:13)
[2018-03-12 23:39] LABS: BUN/Creatinine Ratio 20.6 (8-20); EGFR African American 73.3 (>60); EGFR Non-African American 60.6 (>60); Potassium 3.3 mmol/L (3.5-5.0)
[2018-03-13] MEDS: NS 0.9% 1000 ML* 1,000 ML IV SCH (02:44)
[2018-03-13 03:06] LABS: Magnesium 1.9 mg/dL (1.9-2.7); Phosphorus 1.4 mg/dL (2.5-5.0)
[2018-03-13] MEDS: Al Hydrox/Mg Hydrox/Simet LIQ* 30 ML UDC PO PRN (03:23)
[2018-03-13] MEDS: Morphine VIAL* 4 MG/ML VIAL (1 ml vial) IV PRN ×3 (03:23→14:10)
[2018-03-13 04:27] LABS: Phosphorus 1.4 mg/dL (2.5-5.0)
[2018-03-13 04:29] LABS: Troponin I 0.03 ng/mL (<0.04)
--- NOTE | 2018-03-13 04:33 | PN ---
Hospitalist Progress Note Date of Service: 03/13/18 HOSPITALIST ADDENDUM Called by RN because patient was c/o chest pain. EKG shows no acute ischemic changes and troponin is 0.03. Suspect CP is GI in nature, will try Maalox.
[2018-03-13] MEDS ORDERED: Potassium Phosphate IV* 15 MMOLE in NS 0.9% 250 ML* 250 ML IVPB ONE (04:45)
[2018-03-13] MEDS ORDERED: Magnesium Hydroxide LIQ* 30 ML UDC PO ONE (08:00)
[2018-03-13] MEDS ORDERED: Senna TAB PO ONE (08:00)
[2018-03-13] MEDS ORDERED: Docusate CAP* 100 MG PO ONE (08:00)
[2018-03-13] MEDS: ZOSYN 3.375 GM Q8H per EXTENDED INFUSION IVPB SCH ×4 (08:45→16:22)
[2018-03-13] MEDS: Aspirin EC TAB* 81 MG TAB.EC PO SCH (08:54)
[2018-03-13] MEDS: Potassium & Sodium Phos 250MG* = 1 PACKET PO SCH ×3 (08:54→20:30)
[2018-03-13] MEDS: Multivitamins/Minerals TAB PO SCH (08:54)
[2018-03-13] MEDS: Thiamine TAB* 100 MG TAB PO SCH (08:54)
[2018-03-13] MEDS: Folic Acid TAB* 1 MG PO SCH (08:54)
[2018-03-13] MEDS ORDERED: Insulin GLARGINE(*) 1 UNITS UNIT SUBCUT ONE ×2 (09:23→14:42)
[2018-03-13 09:58] LABS: Troponin I 0.01 ng/mL (<0.04)
--- NOTE | 2018-03-13 10:03 | PN ---
Progress Note - Progress Note Date of Service: 03/13/18 - Transfer summary Note: Date of ICU admission: 03/11/18 Date of transfer to medical floor: 03/13/17 Reason for admission: Dizziness/DKA Pt seen and examined at bedside. Pt is 52 y o m with h/o DM, chronic pain, ETOH abuse a/w DKA, AG closed, off Insulin drip since yesterday. Pt reprots having chest pain, intermittent, sharp since last night. Had N yesterday, has been having vomiting and retching prior to admission. He has also been binge drinking nad not taking his Insulin prior to admission. Also had constipation for few days. Active Medications Generic Name Dose Route Start Last Admin Trade Name Freq PRN Reason Stop Dose Admin Acetaminophen 650 mg 03/11/18 18:12 Tylenol Tab* PO Q4H PRN PAIN Al Hydrox/Mg Hydrox/Simethicone 30 ml 03/11/18 18:13 03/13/18 03:23 Maalox Plus* PO 30 ml Q4H PRN Administration INDIGESTION Aspirin 81 mg 03/12/18 09:00 03/13/18 08:54 Aspirin Ec Tab* PO 81 mg DAILY JINA Administration Atorvastatin Calcium 10 mg 03/12/18 17:00 03/12/18 16:59 Lipitor* PO 10 mg 1700 JINA Administration Protocol Dextrose 12.5 gm 03/12/18 16:52 D50w Syringe 50 Ml* IV PUSH .FOR FS < 60 - SS PRN FS < 60 Folic Acid 1 mg 03/12/18 09:00 03/13/18 08:54 Folvite Tab* PO 1 mg DAILY JINA Administration Piperacillin Sod/Tazobactam 100 mls @ 25 mls/hr 03/12/18 08:00 03/13/18 08:45 Sod 3.375 gm/ Sodium Chloride IVPB 25 mls/hr Q8H JINA Administration Sodium Chloride 1,000 mls @ 100 mls/hr 03/12/18 16:45 03/13/18 02:44 Ns 0.9% 1000 Ml* IV 100 mls/hr PER RATE JINA Administration Potassium Chloride 20 meq in 100 mls @ 50 mls/hr 03/13/18 08:00 03/13/18 11: 33 Potassium Chloride 20 Meq/100 Ml Ivpremix* IV 03/13/18 11:59 30 mls/hr Q2H JINA Administration Sodium Chloride 1,000 mls @ 1,000 mls/hr 03/13/18 11:09 Ns 0.9% 1000 Ml* IV 03/13/18 12:08 .PER RATE ONE Insulin Glargine 20 units 03/13/18 13:00 Lantus(*) SUBCUT Q24H JINA Insulin Human Lispro 2 units 03/12/18 16:30 03/13/18 11:34 Humalog* SUBCUT Not Given [facility] Protocol Insulin Human Lispro 0 units 03/12/18 17:00 03/12/18 21:12 Humalog* SUBCUT 6 units ACHS [facility] Administration Protocol Lorazepam 0 - 6 mg 03/11/18 19:00 Ativan Inj* IM .PER [facility] PROTOCOL [facility] Protocol Morphine Sulfate 2 mg 03/11/18 18:11 03/13/18 10:11 Morphine Vial* IV 2 mg Q2H PRN Administration PAIN Multivitamins/Minerals 1 tab 03/12/18 09:00 03/13/18 08:54 Theragran/Minerals Tab* PO 1 tab DAILY JINA Administration Ondansetron HCl 4 mg 03/11/18 18:12 03/12/18 14:35 Zofran Inj* IV 4 mg Q6H PRN Administration NAUSEA Pantoprazole Sodium 40 mg 03/12/18 21:00 03/12/18 21:13 Protonix Tab (Nf) PO 40 mg BEDTIME JINA Administration Pharmacy Consult 1 note 03/12/18 04:00 Zosyn Per Pharmacy* FOLLOW UP .ZOSYN PER PHARMACY JINA Potassium Phos/Sodium Phos 250 mg 03/12/18 09:00 03/13/18 08:54 Neutra Phos 250 Mg Avelino* PO 250 mg TID JINA Administration Thiamine HCl 100 mg 03/12/18 09:00 03/13/18 08:54 Vitamin B-1 Tab* PO 100 mg DAILY JINA Administration Vital Signs Temp Pulse Resp BP Pulse Ox 98.4 F 94 20 128/80 97 03/13/18 08:00 03/13/18 09:01 03/13/18 10:11 03/13/18 09:00 03/13/18 09:01 O/E: Pt in NAD HEENT: PERRLA, no JVD Lungs: Good a/e b/l, no wheeze CVS: S1, S2+, regualr Abd: Obese, BS+ Ext: Normal ROM Skin: No rash Laboratory Results - last 24 hr 03/12/18 03/12/18 03/12/18 11:03 12:32 13:24 Sodium Potassium Chloride Carbon Dioxide Anion Gap BUN Creatinine Est GFR ( Amer) Est GFR (Non-Af Amer) BUN/Creatinine Ratio Glucose POC Glucose (mg/dL) 269 H 224 H Calcium Phosphorus 1.9 L Magnesium 2.0 Troponin I 03/12/18 03/12/18 03/12/18 14:40 16:26 17:50 Sodium Potassium Chloride Carbon Dioxide Anion Gap BUN Creatinine Est GFR ( Amer) Est GFR (Non-Af Amer) BUN/Creatinine Ratio Glucose POC Glucose (mg/dL) 211 H 253 H Calcium Phosphorus 1.7 L Magnesium 2.0 Troponin I 03/12/18 03/12/18 03/13/18 21:02 23:16 03:46 Sodium 137 139 Potassium 3.3 L 3.3 L Chloride 109 109 Carbon Dioxide 21 L 20 L Anion Gap 7 10 BUN 26 H 21 Creatinine 1.26 H 1.14 Est GFR ( Amer) 73.3 82.3 Est GFR (Non-Af Amer) 60.6 68.0 BUN/Creatinine Ratio 20.6 H 18.4 Glucose 306 H 278 H POC Glucose (mg/dL) 280 H Calcium 8.0 L 8.2 L Phosphorus 1.4 L 1.4 L Magnesium 1.9 2.0 Troponin I 0.03 03/13/18 03/13/18 08:25 09:30 Sodium 136 Potassium TNP Chloride 107 Carbon Dioxide 17 L Anion Gap 12 H BUN 20 Creatinine 1.08 Est GFR ( Amer) 87.6 Est GFR (Non-Af Amer) 72.4 BUN/Creatinine Ratio 18.5 Glucose 341 H POC Glucose (mg/dL) 319 H Calcium 7.8 L Phosphorus Magnesium Troponin I 0.01 Summary of ICU stay: 52 y o m with h/o DM, chronic pain, ETOH abuse a/w DKA. Pt was started on DKA protocol, fluids, Insulin drip, AG closed, off Insulin drip since yesterday. He has h/o non-compliance to insulin when he binge drinks. Has also been having ear infection recently, was prescribed Amoxicillin. Pt has been non-compliant with Insulin due to binge drinking. He was notd to have ARF, severe acidosis that have resolved. Pt was drowsy and altered on admission. Pt is alert and oriented now. He has been complaining of intermittent chest pain which could be GI in origin given recent vomiting and retching. He has also c/o abd pain, Bl cx were positive fo Klebsiella, no source noted, CT abd and pelvis were ordered. CTA was also ordered given chest pain and tachycardia. His AG reopened this am, bl sugars also slightly elevated. Ordered fluid bolus and stat dose of Lantus. Will rpt BMP for f/u and restart Insulin drip if needed. He has been drinking juices which might have resulted in elevated bl sugars. Electrolyte abnormalities were corrected. Pt is tolerating diet without any issues. He is receiving Morphine prn for pain. Bowel regimen was ordered. UO has been good. Pt on Zosyn for sepsis and bacteremia sec to Klebsiella, source unclear. Had recent ear infection. Rpt bl cx were sent. ECHO ordered to evaluate for valvular vegetations. He will need social worker psychiatric evaluation for ETOH rehab arrangements. He will need nutrition eval and diabetic education prior to discharge. Pt is stable to be transferred to medical floor after rpt BMP under hospitalist service Pt and his friend at bedside had many questions which were answered to their satisfaction. Total time 50 min D/w Dr Simpson.
[2018-03-13 10:05] LABS: CO2 Carbon Dioxide 17 mmol/L (22-32); Calcium 7.8 mg/dL (8.6-10.3); Chloride 107 mmol/L (101-111); Sodium 136 mmol/L (135-145)
[2018-03-13 10:11] LABS: Anion Gap 12 mmol/L (2-11); BUN/Creatinine Ratio 18.5 (8-20); Blood Urea Nitrogen 20 mg/dL (6-24); EGFR African American 87.6 (>60); EGFR Non-African American 72.4 (>60); Glucose 341 mg/dL (70-100)
[2018-03-13 10:23] LABS: BUN/Creatinine Ratio 18.4 (8-20); Calcium 8.2 mg/dL (8.6-10.3); EGFR African American 82.3 (>60); Potassium 3.3 mmol/L (3.5-5.0)
[2018-03-13] MEDS ORDERED: NS 0.9% 1000 ML* 1,000 ML IV ONE (11:09)
[2018-03-13] MEDS: KCL 20 MEQ/100 ML IVPREMIX* 20 MEQ/100 ML BAG IV SCH ×3 (11:33→16:40)
[2018-03-13] MEDS: Insulin LISPRO* 1 UNITS UNIT SUBCUT SCH ×9 (11:34→21:03)
[2018-03-13] MEDS ORDERED: Insulin GLARGINE(*) 1 UNITS UNIT SUBCUT SCH (13:00)
[2018-03-13] MEDS ORDERED: Iodixanol* (CONTRAST) 320 MG/ML 100 ML SDV IV ONE (13:10)
[2018-03-13] MEDS ORDERED: Insulin LISPRO* 1 UNITS UNIT SUBCUT ONE ×2 (14:48→14:55)
[2018-03-13] MEDS ORDERED: Dextrose 50% Syringe 50 ML* 25 GM/50 ML SYRINGE IV PUSH PRN (14:48)
[2018-03-13] MEDS ORDERED: LORazepam INJ* 2 MG/ML 1 ML VIAL IV PUSH PRN (14:53)
[2018-03-13 15:54] LABS: BUN/Creatinine Ratio 16.7 (8-20); Calcium 7.9 mg/dL (8.6-10.3); EGFR African American 87.6 (>60); EGFR Non-African American 72.4 (>60); Potassium 3.4 mmol/L (3.5-5.0)
[2018-03-13] MEDS ORDERED: NS 0.9% 500 ML* 500 ML IV ONE (16:14)
[2018-03-13] MEDS: Atorvastatin* 10 MG TAB PO SCH (16:45)
[2018-03-13] MEDS: Pantoprazole TAB * 40 MG TAB PO SCH (20:30)
[2018-03-14 00:29] LABS: BUN/Creatinine Ratio 11.2 (8-20); Calcium 8.5 mg/dL (8.6-10.3); Potassium 3.3 mmol/L (3.5-5.0)
[2018-03-14] MEDS: NS 0.9% 1000 ML* 1,000 ML IV SCH (00:34)
[2018-03-14] MEDS ORDERED: KCL 20 MEQ/100 ML IVPREMIX* 20 MEQ/100 ML BAG IV ONE (01:10)
[2018-03-14] MEDS: ZOSYN 3.375 GM Q8H per EXTENDED INFUSION IVPB SCH ×2 (01:46)
[2018-03-14] MEDS ORDERED: ZOSYN 3.375 GM Q8H per EXTENDED INFUSION IVPB SCH ×2 (05:00)
[2018-03-14] MEDS: Insulin LISPRO* 1 UNITS UNIT SUBCUT SCH ×7 (08:33→20:54)
[2018-03-14] MEDS: Insulin GLARGINE(*) 1 UNITS UNIT SUBCUT SCH (08:33)
--- NOTE | 2018-03-14 10:34 | ECHO ---
Patient: RON WEST [facility] Rec#: [id number] : 1965 Date: 03/14/2018 Age: 52y Height: 168 cm / 66.1 in Weight: 86.2 kg / 190.0 lbs Sex: M BSA: 1.96 Room#: [facility] Admit Date#: 03/11/2018 Type: Inpatient Referring: DAVID RICK Reading: Tate Rhodes MD [employer] Supervisor: Aneta Baldwin RDCS CC: Danny Berkowitz MD Transthoracic Echocardiogram Indication: Chest pain BP: 128/72 HR: 90 Rhythm: NSR Findings History: DKA, DM, HLD, ETOH abuse. Technical Comments: The study quality is good. Completed at 0940. Left Ventricle: The left ventricular chamber size is normal. There is no left ventricular hypertrophy. Global left ventricular wall motion and contractility are within normal limits. Left ventricular systolic function is at the lower limits of normal. The estimated ejection fraction is 50-55%. There is no consistent Doppler evidence of clinically significant diastolic dysfunction. Left Atrium: The left atrium is slightly dilated. Right Ventricle: The right ventricle is mildly dilated. The right ventricular global systolic function is mildly reduced. Right Atrium: The right atrium is mildly dilated. Aortic Valve: The aortic valve is trileaflet. The aortic valve leaflets are mildly thickened. There is a trace of aortic regurgitation. There is no evidence of aortic stenosis. Mitral Valve: The mitral valve leaflets are mildly thickened. There is trace to mild mitral regurgitation. There is no evidence of mitral stenosis. Tricuspid Valve: The tricuspid valve leaflets are normal. There is trace tricuspid regurgitation. Unable to estimate the right ventricular systolic pressure. There is no tricuspid stenosis. Pulmonic Valve: The pulmonic valve appears normal. There is a trace pulmonic regurgitation. There is no pulmonic stenosis. Pericardium: There is no significant pericardial effusion. Aorta: There is no dilatation of the ascending aorta. There is no dilatation of the aortic arch. The aortic root is normal in size. Pulmonary Artery: The main pulmonary artery appears normal. Venous: The inferior vena cava is dilated. There is a greater than 50% respiratory change in the inferior vena cava dimension. Summary: There was not any prior study for comparison. Conclusions Global left ventricular wall motion and contractility are within normal limits. Left ventricular systolic function is at the lower limits of normal. The estimated ejection fraction is 50-55%. The right ventricular global systolic function is mildly reduced. There is a trace of aortic regurgitation. There is no evidence of aortic stenosis. There is trace to mild mitral regurgitation. There is trace tricuspid regurgitation. Unable to estimate the right ventricular systolic pressure. There is no significant pericardial effusion. Measurements Name Value Normal Range RVIDd (AP) 2D 3.5 cm (0.9 - 2.6) RVDdMajor (2D) 4.6 cm (2.2 - 4.4) RAd ISD 4CH 5.4 cm (3.4 - 4.9) RA (A4C)W 3.8 cm (2.9 - 4.6) IVSd (2D) 0.9 cm (0.6 - 1) LVPWd (2D) 1 cm (0.6 - 1) LVIDd (2D) 5 cm (3.6 - 5.4) LVIDs (2D) 3.7 cm - LV FS (2D) 27 % (25 - 45) Aortic Annulus 1.9 cm (1.4 - 2.6) Ao root diameter (2D) 2.9 cm (2.1 - 3.5) Ascending Ao 3.2 cm (2.1 - 3.4) Aortic arch 2.2 cm (1.8 - 3.4) LA dimension (AP) 2D 3.9 cm (2.3 - 3.8) LAd ISD 4CH 5.2 cm (2.9 - 5.3) LA ISD 4CH W 4.2 cm (2.5 - 4.5) Name Value Normal Range LA ESV BP (A/L) index 26 ml/m2 - Name Value Normal Range MV E-wave Vmax 0.9 m/sec - MV deceleration time 204 msec - MV A-wave Vmax 0.7 m/sec - MV E:A ratio 1.3 ratio - LV septal e' Vmax 0.09 m/sec - LV lateral e' Vmax 0.13 m/sec - LV E:e' septal ratio 10 ratio - LV E:e' lateral ratio 6.9 ratio - Name Value Normal Range AV Vmax 1.3 m/sec - AV VTI 27 cm - AV peak gradient 6 mmHg - AV mean gradient 4 mmHg - LVOT Vmax 1 m/sec - LVOT VTI 18 cm - LVOT peak gradient 4 mmHg - LVOT mean gradient 2 mmHg - SAMARIA Vmax 0.9 m/sec - Name Value Normal Range IVC diameter 2.2 cm - Name Value Normal Range PV Vmax 1.1 m/sec - PV peak gradient 5 mmHg -
[2018-03-14] MEDS: Potassium & Sodium Phos 250MG* = 1 PACKET PO SCH ×3 (10:35→20:53)
[2018-03-14] MEDS: Thiamine TAB* 100 MG TAB PO SCH (10:36)
[2018-03-14] MEDS: Aspirin EC TAB* 81 MG TAB.EC PO SCH (10:36)
[2018-03-14] MEDS: Folic Acid TAB* 1 MG PO SCH (10:36)
[2018-03-14] MEDS: Multivitamins/Minerals TAB PO SCH (10:36)
[2018-03-14 10:46] LABS: ABS Basophils 0.1 10^3/ul (0-0.2); ABS Eosinophils 0 10^3/ul (0-0.6); ABS Lymphocytes 1.4 10^3/ul (1.0-4.8); ABS Monocytes 1.2 10^3/ul (0-0.8); ABS Neutrophils 5.3 10^3/ul (1.5-7.7); ABS Nucleated RBC 0 10^3/ul; Eosinophil % 0.3 %; Hematocrit 39 % (42-52); Hemoglobin 13.2 g/dl (14.0-18.0); Lymphocyte % 17.4 %; Mean Corpuscular HGB Conc 34 g/dl (31-36); Mean Corpuscular Hemoglobin 31 pg (27-31); Mean Corpuscular Volume 92 fL (80-94); Mean Platelet Volume 6.7 fL (7.4-10.4); Nucleated Red Blood Cells % 0; Platelet Count 170 10^3/ul (150-450); Red Blood Count 4.23 10^6/ul (4.00-5.40); Red Cell Distribution Width 13 % (10.5-15)
[2018-03-14 11:01] LABS: BUN/Creatinine Ratio 11.7 (8-20); Calcium 8.4 mg/dL (8.6-10.3); EGFR African American 92.5 (>60); EGFR Non-African American 76.4 (>60); Potassium 3.6 mmol/L (3.5-5.0)
[2018-03-14] MEDS: Loperamide CAP* 2 MG PO PRN ×2 (11:48→18:49)
[2018-03-14] MEDS: cefTRIAXone(*) 2 GM in NS 0.9% 100 ML* 100 ML IVPB SCH (11:48)
[2018-03-14] MEDS: Famotidine TAB* 20 MG PO SCH (11:48)
--- NOTE | 2018-03-14 12:11 | PN ---
Subjective Date of Service: 03/14/18 Interval History: Mr. Felix is feeling better today. His close friend is at the bedside and very involved in his care. He had a rough night d/t some symptomatic hypoglycemia. He and his friend have many concerns about infection, diet options , and glucose control. He continues to have some intermittent chest pain. He describes this as sharp, stabbing, to the right of his sternum. Episodes typically lasting only seconds. He denies SOB, N/V. He is having diarrhea. Family History: Unchanged from Admission Social History: Unchanged from Admission Past Medical History: Unchanged from Admission Objective Active Medications: Acetaminophen (Tylenol Tab*) 650 mg PO Q4H PRN PAIN Al Hydrox/Mg Hydrox/Simethicone (Maalox Plus*) 30 ml PO Q4H PRN INDIGESTION Aspirin (Aspirin Ec Tab*) 81 mg PO DAILY [facility] Atorvastatin Calcium (Lipitor*) 10 mg PO 1700 JINA; Protocol Dextrose (D50w Syringe 50 Ml*) 12.5 gm IV PUSH .FOR FS < 60 - SS PRN FS < 60 Famotidine (Pepcid Tab*) 20 mg PO DAILY [facility] Folic Acid (Folvite Tab*) 1 mg PO DAILY [facility] Sodium Chloride (Ns 0.9% 1000 Ml*) 1,000 mls @ 100 mls/hr IV PER RATE [facility] Ceftriaxone Sodium 2 gm/ (Sodium Chloride) 100 mls @ 200 mls/hr IVPB Q24H [facility] Insulin Glargine (Lantus(*)) 30 units SUBCUT Q24H JINA Insulin Human Lispro (Humalog*) 0 units SUBCUT ACHS JINA; Protocol Insulin Human Lispro (Humalog*) 0 units SUBCUT AC JINA; Protocol Loperamide HCl (Imodium Cap*) 2 mg PO .SEE DIRECTIONS PRN DIARRHEA Lorazepam (Ativan Inj*) 2 mg IV PUSH Q6H PRN ANXIETY/WAM SYMPTOMS Metronidazole (Flagyl Tab*) 500 mg PO BID [facility] Morphine Sulfate (Morphine Vial*) 2 mg IV Q2H PRN PAIN Multivitamins/Minerals (Theragran/Minerals Tab*) 1 tab PO DAILY [facility] Ondansetron HCl (Zofran Inj*) 4 mg IV Q6H PRN NAUSEA Pantoprazole Sodium (Protonix Tab (Nf)) 40 mg PO BEDTIME [facility] Potassium Phos/Sodium Phos (Neutra Phos 250 Mg Avelino*) 250 mg PO TID JINA Thiamine HCl (Vitamin B-1 Tab*) 100 mg PO DAILY JINA Vital Signs - 8 hr 03/14/18 11:48 Respiratory 18 Rate Oxygen Devices in Use Now: None Appearance: Middle-aged male sitting in bed in NAD Eyes: No Scleral Icterus Ears/Nose/Mouth/Throat: Mucous Membranes Moist Neck: NL Appearance and Movements; NL JVP, Trachea Midline Respiratory: Symmetrical Chest Expansion and Respiratory Effort, Clear to Auscultation Cardiovascular: NL Sounds; No Murmurs; No JVD, RRR Abdominal: NL Sounds; No Tenderness; No Distention Extremities: No Edema Skin: No Rash or Ulcers Neurological: Alert and Oriented x 3 Lines/Tubes/Other Access: Clean, Dry and Intact Peripheral IV Nutrition: Taking PO's Result Diagrams: 03/14/18 10:37 03/14/18 10:37 Assess/Plan/Problems-Billing Assessment: Mr. Felix is a 52 yo M with PMH of DM and HLD who presented to the ED with c/ o flu-like symptoms and was found to be in DKA; was admitted to the ICU and transferred to on 03/13. - Patient Problems (1) DKA (diabetic ketoacidoses) Code(s): E13.10 - OTH DIABETES MELLITUS WITH KETOACIDOSIS WITHOUT COMA Comment : - Resolved with insulin drip - History of noncompliance with medications; reportedly follows with Endocrine at [place] - Hgb A1c 10.6% - Appreciate Endocrinology consult - Continue glargine, lispro SS and carb counting (2) Bacteremia Code(s): R78.81 - BACTEREMIA Comment: - Klebsiella pneumoniae in 4/4 bottles; repeat cultures negative - Appreciate ID consult; recommends 6 weeks abx, will need PICC prior to d/c - Start ceftriaxone and Flagyl per ID (3) Hepatic abscess Code(s): K75.0 - ABSCESS OF LIVER Comment: - Unclear etiology - Plan as above (4) Chest pain, non-cardiac Code(s): R07.89 - OTHER CHEST PAIN Comment: - Based on history and presentation, suspect esophageal spasm; no cardiac concerns - Continue pantoprazole; start diltiazem QID (5) Alcohol abuse Code(s): F10.10 - ALCOHOL ABUSE, UNCOMPLICATED Comment: - Reportedly drinks up to 16oz of liquor daily - Verbalizes desire to remain sober - Appreciate social work consult (6) ERICKA (acute kidney injury) Code(s): N17.9 - ACUTE KIDNEY FAILURE, UNSPECIFIED Comment: - Now resolved (7) DVT prophylaxis Comment: - SCDs (8) Full code status Code(s): Z78.9 - OTHER SPECIFIED HEALTH STATUS Comment: Status and Disposition: Inpatient for continued blood glucose monitoring. Anticipate d/c home when medically stable. Will need 6 weeks of IV antibiotics, likely outpatient infusion. Attending: Favio Simpson
[2018-03-14] MEDS: Diltiazem TAB* 30 MG PO SCH ×3 (12:49→20:53)
[2018-03-14] MEDS: Ondansetron INJ* 2 MG/ML VIAL IV PRN (12:53)
--- NOTE | 2018-03-14 13:33 | CONS ---
DATE OF CONSULTATION: 03/14/2018. REQUESTING PROVIDER: Trini De Dios NP. CONSULTING SERVICE: Infectious Disease. REASON FOR CONSULTATION: Liver abscess. IMPRESSION: 1. Multifocal hepatic abscess with klebsiella bacteremia. 2. DKA/HHNK in the setting of insulin dependent diabetes. 3. Obesity. 4. KEFLEX ALLERGY CAUSED RASH. 5. Diarrhea from Zosyn. RECOMMENDATIONS: Stop Zosyn. I will start Ceftriaxone 1 gm daily. Will plan on a six week course in addition to oral Flagyl. He will need a colonoscopy as an outpatient. HISTORY OF PRESENT ILLNESS: This is a 52-year-old man who came in with sepsis DKA due to klebsiella bacteremia from a liver abscess. He has been on Zosyn here. His fever, chills, sweats, as well as vomiting and abdominal pain are improved. CT scan showed multifocal liver abscess which I reviewed. Today, his appetite is good, abdominal pain is gone, and has not vomited. He had a couple of loose stools yesterday and today. No recent medical procedures and no prosthetic material present. PAST MEDICAL HISTORY: Insulin-dependent diabetes, hyperlipidemia, alcohol abuse. MEDICATIONS: Tylenol, aspirin, Lipitor, folic acid, insulin Glargine, insulin Lispro, Loperamide as needed, Ativan as needed, Zosyn 3.375 gm IV every 8 hours , potassium, thiamine. ALLERGIES: CEPHALEXIN CAUSED RASH. FAMILY HISTORY: Coronary artery disease, otherwise limited knowledge of family history. SOCIAL HISTORY: He lives in [place] with a roommate. 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 He has no travel. He drinks about 60 ounces of liquor a day. No injection drugs. REVIEW OF SYSTEMS: All negative except as noted above in the history of present illness to a 14 point review. PHYSICAL EXAM: General: He is awake, not in distress. Vital Signs: Temperature 37, heart rate 80, respiratory rate 20, blood pressure 130/70, oxygen saturation 95 percent on room air. Neurologic: He is oriented times three, follows all commands, moves all extremities. HEENT: There is no conjunctival hemorrhage, oropharynx without lesions. Neck: Supple without mass. Heart: Regular rate and rhythm without murmurs, rubs or gallops. Lungs : Clear to auscultation bilaterally. Abdomen: Soft, nontender, nondistended. There are bowel sounds present. Skin: There is no rash or splinter hemorrhage. Musculoskeletal: There is no spine tenderness to palpation or joint synovitis. LABORATORY DATA: Creatinine 15 down from 23, hemoglobin 14, platelets 196, creatinine 0.9, alkaline phosphatase 155, ALT 35, bilirubin 0.4. Please see impressions and recommendations as outline above which I have discussed with Trini De Dios NP. Thank you for asking me to see Mr. Felix in consultation. [id number]/[facility] #: [id number] [facility] MEDICAL CENTERCharleen
[2018-03-14] MEDS ORDERED: Diltiazem TAB* 30 MG PO SCH (16:30)
[2018-03-14] MEDS: Atorvastatin* 10 MG TAB PO SCH (17:34)
[2018-03-14] MEDS: metroNIDAZOLE TAB* 250 MG PO SCH (20:53)
[2018-03-14] MEDS: Pantoprazole TAB * 40 MG TAB PO SCH (20:53)
--- NOTE | 2018-03-14 21:13 | CONSULT ---
Consult Consult: [facility] Inpatient Consult Note Date of Consult: 03/14/18 Reason for Consult: DKA Reason for Admission: k.pneumo septicemia and hepatic abscess ASSESSMENT: 52 yo M with history of diabetes, A1c >10%, now presenting with disseminated klebsiella pneumoniae infection. Severity of initial presentation likely due to combination of alcoholic and diabetic ketoacidosis in setting of septicemia. BG was <200 after total of 56 units of insulin yesterday = 0.6 units /kg/day, but is higher today. His insulin requirement is at least 45 units/day. Optimal treatment of diabetes in setting of active alcohol abuse is challenging given nutritional issues and risk for alcoholic ketoacidosis, but should include at least basal insulin. In addition to this, use of oral agents over prandial insulin is preferred for safety. Metformin would be useful as a second agent, if tolerated. PLAN: - increase glargine to 45 units daily, titrate daily to achieve fasting AMBG < 150 - start glipizide 5mg BID this admission - continue lispro sliding scale and adjust glargine dose daily - start metformin on discharge, if tolerated - f/u [place] [facility] in 4-6 weeks SUBJECTIVE: History of Present Illness: 52 yo M with history of ketosis-prone diabetes and chronic alcoholism, now admitted for flu-like symptoms and DKA. Nausea and vomiting started several days before admission on 03/11/18. Could not keep anything down. Was drinking >16 oz of hard liquor/day, last use approximately 3 days prior to admission. On presentation to [facility], he was noted to have severe hyperglycemia and AGA. After improvement with IV insulin, he was transitioned to SQ insulin on 03/13/18 prior to transfer to floor, but experienced mild hypoglycemia (BG=68) after receiving catchup insulin doses for correction of hyperglycemia earlier that day. Since then, he has experienced moderate hyperglycemia 200-300 despite home-dose basal insulin and sliding scale. He was diagnosed with DM in 2007 at a health screening event and has one prior admission for DKA in setting of alcohol abuse in 2010. No hospitalizations since then. Past Medical History: 1. Type 2 Diabetes 2. Dyslipidemia Medications Prior to Admission: Amoxicillin PO (*) [Amoxicillin 875 MG (*)] 875 mg PO BID 03/11/18 [History Confirmed 03/11/18] Aspirin EC TAB* [Ecotrin EC Low Dose 81 MG*] 81 mg PO DAILY 03/11/18 [History Confirmed 03/11/18] Insulin GLARGINE(*) [Lantus(*)] 30 units SUBCUT BEDTIME 03/11/18 [History Confirmed 03/11/18] Insulin LISPRO* [HumaLOG*] 30 - 40 units SUBCUT QPM 03/11/18 [History Confirmed 03/11/18] Lovastatin (NF) [Mevacor (NF)] 40 mg PO DAILY 03/11/18 [History Confirmed ] Inpatient Medications: Acetaminophen (Tylenol Tab*) 650 mg PO Q4H PRN PRN Reason: PAIN Last Admin: 03/13/18 23:32 Dose: 650 mg Al Hydrox/Mg Hydrox/Simethicone (Maalox Plus*) 30 ml PO Q4H PRN PRN Reason: INDIGESTION Last Admin: 03/15/18 03:53 Dose: 30 ml Aspirin (Aspirin Ec Tab*) 81 mg PO DAILY [facility] Last Admin: 03/14/18 10:36 Dose: 81 mg Atorvastatin Calcium (Lipitor*) 10 mg PO 1700 [facility]; Protocol Last Admin: 03/14/18 17:34 Dose: 10 mg Dextrose (D50w Syringe 50 Ml*) 12.5 gm IV PUSH .FOR FS < 60 - SS PRN PRN Reason: FS < 60 Diltiazem HCl (Cardizem Tab*) 30 mg PO QID [facility] Last Admin: 03/14/18 20:53 Dose: 30 mg Famotidine (Pepcid Tab*) 20 mg PO DAILY [facility] Last Admin: 03/14/18 11:48 Dose: 20 mg Folic Acid (Folvite Tab*) 1 mg PO DAILY [facility] Last Admin: 03/14/18 10:36 Dose: 1 mg Ceftriaxone Sodium 2 gm/ (Sodium Chloride) 100 mls @ 200 mls/hr IVPB Q24H [facility] Last Admin: 03/14/18 11:48 Dose: 200 mls/hr Insulin Glargine (Lantus(*)) 30 units SUBCUT Q24H [facility] Last Admin: 03/14/18 08:33 Dose: 30 units Insulin Human Lispro (Humalog*) 0 units SUBCUT ACHS [facility]; Protocol Last Admin: 03/14/18 20:54 Dose: 8 units Insulin Human Lispro (Humalog*) 0 units SUBCUT [facility]; Protocol Last Admin: 03/14/18 18:49 Dose: 2 units Loperamide HCl (Imodium Cap*) 2 mg PO .SEE DIRECTIONS PRN PRN Reason: DIARRHEA Last Admin: 03/14/18 18:49 Dose: 2 mg Lorazepam (Ativan Inj*) 2 mg IV PUSH Q6H PRN PRN Reason: ANXIETY/WAM SYMPTOMS Metronidazole (Flagyl Tab*) 500 mg PO BID [facility] Last Admin: 03/14/18 20:53 Dose: 500 mg Morphine Sulfate (Morphine Vial*) 2 mg IV Q2H PRN PRN Reason: PAIN Last Admin: 03/13/18 14:10 Dose: 2 mg Multivitamins/Minerals (Theragran/Minerals Tab*) 1 tab PO DAILY [facility] Last Admin: 03/14/18 10:36 Dose: 1 tab Ondansetron HCl (Zofran Inj*) 4 mg IV Q6H PRN PRN Reason: NAUSEA Last Admin: 03/14/18 12:53 Dose: 4 mg Pantoprazole Sodium (Protonix Tab (Nf)) 40 mg PO BEDTIME [facility] Last Admin: 03/14/18 20:53 Dose: 40 mg Potassium Phos/Sodium Phos (Neutra Phos 250 Mg Avelino*) 250 mg PO TID [facility] Last Admin: 03/14/18 20:53 Dose: 250 mg Thiamine HCl (Vitamin B-1 Tab*) 100 mg PO DAILY [facility] Last Admin: 03/14/18 10:36 Dose: 100 mg Allergies/Intolerances: Keflex, sulfa Social History: Lives with female partner, has good friend support and network, including health care proxy. Active alcohol abuse, denies other drugs. Family History: Cardiovascular disease. Review of Systems: As above. OBJECTIVE: Temp Pulse Resp BP Pulse Ox 98.8 F 85 20 123/69 93 03/15/18 04:10 03/15/18 04:10 03/15/18 04:10 03/15/18 04:10 03/15/18 04:10 General: alert, pleasant, oriented, no distress ENT: neck supple, no thyromegaly, poor dentition noted Chest: CTAB, no wheezing or crackles CV: RRR, no murmur Abdomen: soft, mild LUQ tenderness Extremities: no edema, distal pulses intact Skin: warm, dry, no rash Neuro: grossly intact motor/sensory in extremities Psych: restricted affect, pleasant Labs: WBC 7.8 10^3/ul (3.5-10.8) 03/15/18 07:54 RBC 4.17 10^6/ul (4.00-5.40) 03/15/18 07:54 Hgb 13.2 g/dl (14.0-18.0) L 03/15/18 07:54 Hct 38 % (42-52) L 03/15/18 07:54 MCV 91 fL (80-94) 03/15/18 07:54 MCH 32 pg (27-31) H 03/15/18 07:54 MCHC 35 g/dl (31-36) 03/15/18 07:54 RDW 13 % (10.5-15) 03/15/18 07:54 Plt Count 198 10^3/ul (150-450) 03/15/18 07:54 MPV 7.4 fL (7.4-10.4) 03/15/18 07:54 Neut % (Auto) 60.9 % 03/15/18 07:54 Lymph % (Auto) 22.0 % 03/15/18 07:54 [place] % (Auto) 16.2 % 03/15/18 07:54 Eos % (Auto) 0.5 % 03/15/18 07:54 Baso % (Auto) 0.4 % 03/15/18 07:54 Absolute Neuts (auto) 4.8 10^3/ul (1.5-7.7) 03/15/18 07:54 Absolute Lymphs (auto) 1.7 10^3/ul (1.0-4.8) 03/15/18 07:54 Absolute Monos (auto) 1.3 10^3/ul (0-0.8) H 03/15/18 07:54 Absolute Eos (auto) 0 10^3/ul (0-0.6) 03/15/18 07:54 Absolute Basos (auto) 0 10^3/ul (0-0.2) 03/15/18 07:54 Absolute Nucleated RBC 0 10^3/ul 03/15/18 07:54 Immature Gran % 12 % (0-9) H 03/12/18 05:15 Neutrophils % 75 % 03/12/18 05:15 Band Neutrophils % 9 % (0-8) H 03/12/18 05:15 Lymphocytes % 9 % 03/12/18 05:15 Monocytes % 4 % 03/12/18 05:15 Metamyelocytes % 1 % (0-2) 03/12/18 05:15 Myelocytes % 2 % (0-1) H 03/12/18 05:15 Nucleated RBC % 0.1 03/15/18 07:54 Abs Neuts (Manual) 13.75 10^3/ul (1.5-7.7) H 03/12/18 05:15 Abs Lymphs (Manual) 1.422 10^3/ul (1.0-4.8) 03/12/18 05:15 Abs Monocytes (Manual) 0.632 10^3/ul (0-0.8) 03/12/18 05:15 Normal RBC Morphology Normal (Normal) 03/12/18 05:15 VBG pH < 7.00 (7.32-7.43) L 03/11/18 18:01 VBG pCO2 30 mmHg (41-51) L 03/11/18 18:01 VBG pO2 39.0 mmHg (35-45) 03/11/18 18:01 VBG HCO3 TNP 03/11/18 18:01 VBG O2 Saturation 70.4 % (70-80) 03/11/18 18:01 VBG Base Excess TNP 03/11/18 18:01 Sodium 140 mmol/L (135-145) 03/15/18 07:54 Potassium 3.2 mmol/L (3.5-5.0) L 03/15/18 07:54 Chloride 102 mmol/L (101-111) 03/15/18 07:54 Carbon Dioxide 29 mmol/L (22-32) 03/15/18 07:54 Anion Gap 9 mmol/L (2-11) 03/15/18 07:54 BUN 10 mg/dL (6-24) 03/15/18 07:54 Creatinine 0.90 mg/dL (0.67-1.17) 03/15/18 07:54 Est GFR ( Amer) 108.1 (>60) 03/15/18 07:54 Est GFR (Non-Af Amer) 89.3 (>60) 03/15/18 07:54 BUN/Creatinine Ratio 11.1 (8-20) 03/15/18 07:54 Glucose 237 mg/dL (70-100) H 03/15/18 07:54 POC Glucose (mg/dL) 319 mg/dL (70-100) H 03/15/18 12:18 Hemoglobin A1c 10.6 % (4.0-5.6) H 03/11/18 22:35 Lactic Acid 3.8 mmol/L (0.5-2.0) H* 03/11/18 16:14 Calcium 8.7 mg/dL (8.6-10.3) 03/15/18 07:54 Phosphorus 1.4 mg/dL (2.5-5.0) L 03/13/18 03:46 Magnesium 2.0 mg/dL (1.9-2.7) 03/13/18 03:46 Total Bilirubin 0.40 mg/dL (0.2-1.0) 03/11/18 16:14 AST 23 U/L (13-39) 03/11/18 16:14 ALT 35 U/L (7-52) 03/11/18 16:14 Alkaline Phosphatase 155 U/L (34-104) H 03/11/18 16:14 Troponin I 0.01 ng/mL (<0.04) 03/13/18 09:30 Total Protein 8.3 g/dL (6.4-8.9) 03/11/18 16:14 Albumin 4.6 g/dL (3.2-5.2) 03/11/18 16:14 Globulin 3.7 g/dL (2-4) 03/11/18 16:14 Albumin/Globulin Ratio 1.2 (1-3) 03/11/18 16:14 TSH 1.36 mcIU/mL (0.34-5.60) 03/11/18 16:14 Urine Color Yellow 03/12/18 02:37 Urine Appearance Cloudy 03/12/18 02:37 Urine pH 5.0 (5-9) 03/12/18 02:37 Ur Specific [place] 1.017 (1.010-1.030) 03/12/18 02:37 Urine Protein 1+(30 mg/dl) (Negative) A 03/12/18 02:37 Urine Ketones 2+ (Negative) A 03/12/18 02:37 Urine Blood 2+ (Negative) A 03/12/18 02:37 Urine Nitrate Negative (Negative) 03/12/18 02:37 Urine Bilirubin Negative (Negative) 03/12/18 02:37 Urine Urobilinogen Negative (Negative) 03/12/18 02:37 Ur Leukocyte Esterase Negative (Negative) 03/12/18 02:37 Urine WBC (Auto) Trace(0-5/hpf) (Absent) 03/12/18 02:37 Urine RBC (Auto) Trace(0-2/hpf) (Absent) 03/12/18 02:37 Urine Bacteria Absent (Absent) 03/12/18 02:37 Hyaline Casts Present (Absent) A 03/12/18 02:37 Urine Glucose 3+(>=500 mg/dl) (Negative) A 03/12/18 02:37 HIV 1&2 Antibody Nonreactive (Nonreactive) 03/11/18 16:14 Influenza A (Rapid) Negative (Negative) 03/11/18 16:45 Influenza B (Rapid) Negative (Negative) 03/11/18 16:45
[2018-03-15] MEDS: Al Hydrox/Mg Hydrox/Simet LIQ* 30 ML UDC PO PRN (03:53)
[2018-03-15 08:29] LABS: ABS Basophils 0 10^3/ul (0-0.2); ABS Eosinophils 0 10^3/ul (0-0.6); ABS Lymphocytes 1.7 10^3/ul (1.0-4.8); ABS Monocytes 1.3 10^3/ul (0-0.8); ABS Neutrophils 4.8 10^3/ul (1.5-7.7); ABS Nucleated RBC 0 10^3/ul; Eosinophil % 0.5 %; Hematocrit 38 % (42-52); Hemoglobin 13.2 g/dl (14.0-18.0); Mean Corpuscular HGB Conc 35 g/dl (31-36); Mean Corpuscular Hemoglobin 32 pg (27-31); Mean Corpuscular Volume 91 fL (80-94); Mean Platelet Volume 7.4 fL (7.4-10.4); Nucleated Red Blood Cells % 0.1; Platelet Count 198 10^3/ul (150-450); Red Blood Count 4.17 10^6/ul (4.00-5.40); Red Cell Distribution Width 13 % (10.5-15); White Blood Count 7.8 10^3/ul (3.5-10.8)
[2018-03-15] MEDS: Insulin LISPRO* 1 UNITS UNIT SUBCUT SCH ×7 (08:29→20:09)
[2018-03-15] MEDS: Insulin GLARGINE(*) 1 UNITS UNIT SUBCUT SCH (08:30)
[2018-03-15] MEDS: Potassium & Sodium Phos 250MG* = 1 PACKET PO SCH ×2 (08:30→13:21)
[2018-03-15] MEDS: Aspirin EC TAB* 81 MG TAB.EC PO SCH (08:31)
[2018-03-15] MEDS: metroNIDAZOLE TAB* 250 MG PO SCH ×2 (08:31→20:08)
[2018-03-15] MEDS: Multivitamins/Minerals TAB PO SCH (08:31)
[2018-03-15] MEDS: Thiamine TAB* 100 MG TAB PO SCH (08:31)
[2018-03-15] MEDS: Diltiazem TAB* 30 MG PO SCH ×4 (08:31→20:08)
[2018-03-15] MEDS: Famotidine TAB* 20 MG PO SCH (08:31)
[2018-03-15] MEDS: Folic Acid TAB* 1 MG PO SCH (08:31)
[2018-03-15 08:48] LABS: BUN/Creatinine Ratio 11.1 (8-20); Calcium 8.7 mg/dL (8.6-10.3); EGFR African American 108.1 (>60); EGFR Non-African American 89.3 (>60); Potassium 3.2 mmol/L (3.5-5.0)
[2018-03-15] MEDS: cefTRIAXone(*) 2 GM in NS 0.9% 100 ML* 100 ML IVPB SCH (12:47)
[2018-03-15] MEDS ORDERED: Potassium Chloride LIQUID* 20 MEQ PACKET PO ONE (13:16)
--- NOTE | 2018-03-15 14:11 | PN ---
Progress Note - Progress Note Date of Service: 03/15/18 SOAP: Subjective: CC: liver abscess HPI: 52 year old IDDM man with DKA and liver abscess. His appetite is improving. Soft stools today. No abd pain or fever. Objective: Vital Signs Temp 36.6 C 03/15/18 11:42 Pulse 87 03/15/18 11:42 Resp 20 03/15/18 11:42 BP 129/72 03/15/18 11:42 Pulse Ox 96 03/15/18 11:42 Intake & Output 03/14/18 03/15/18 03/15/18 18:59 06:59 18:59 Intake Total 600 0 Output Total 0 1000 Balance 600 -1000 Intake: Oral 600 0 Output: Urine 0 1000 Other: Estimated Void Large # Bowel Movements 1 Estimated Stool Amount Large # Voids 1 2 Gen:awake, no distress HEENT: no thrush Heart:RRR no murmur Lungs:CTA BL Abd:+BS NTND soft Skin: no rash Laboratory Results - last 24 hr 03/11/18 03/14/18 03/14/18 16:14 17:00 20:16 WBC RBC Hgb Hct MCV MCH MCHC RDW Plt Count MPV Neut % (Auto) Lymph % (Auto) [place] % (Auto) Eos % (Auto) Baso % (Auto) Absolute Neuts (auto) Absolute Lymphs (auto) Absolute Monos (auto) Absolute Eos (auto) Absolute Basos (auto) Absolute Nucleated RBC Nucleated RBC % Sodium Potassium Chloride Carbon Dioxide Anion Gap BUN Creatinine Est GFR ( Amer) Est GFR (Non-Af Amer) BUN/Creatinine Ratio Glucose POC Glucose (mg/dL) 283 H 327 H Calcium HIV 1&2 Antibody Nonreactive 03/14/18 03/15/18 03/15/18 23:59 03:58 07:44 WBC RBC Hgb Hct MCV MCH MCHC RDW Plt Count MPV Neut % (Auto) Lymph % (Auto) [place] % (Auto) Eos % (Auto) Baso % (Auto) Absolute Neuts (auto) Absolute Lymphs (auto) Absolute Monos (auto) Absolute Eos (auto) Absolute Basos (auto) Absolute Nucleated RBC Nucleated RBC % Sodium Potassium Chloride Carbon Dioxide Anion Gap BUN Creatinine Est GFR ( Amer) Est GFR (Non-Af Amer) BUN/Creatinine Ratio Glucose POC Glucose (mg/dL) 183 H 194 H 238 H Calcium HIV 1&2 Antibody 03/15/18 03/15/18 03/15/18 07:54 07:54 12:18 WBC 7.8 RBC 4.17 Hgb 13.2 L Hct 38 L MCV 91 MCH 32 H MCHC 35 RDW 13 Plt Count 198 MPV 7.4 Neut % (Auto) 60.9 Lymph % (Auto) 22.0 [place] % (Auto) 16.2 Eos % (Auto) 0.5 Baso % (Auto) 0.4 Absolute Neuts (auto) 4.8 Absolute Lymphs (auto) 1.7 Absolute Monos (auto) 1.3 H Absolute Eos (auto) 0 Absolute Basos (auto) 0 Absolute Nucleated RBC 0 Nucleated RBC % 0.1 Sodium 140 Potassium 3.2 L Chloride 102 Carbon Dioxide 29 Anion Gap 9 BUN 10 Creatinine 0.90 Est GFR ( Amer) 108.1 Est GFR (Non-Af Amer) 89.3 BUN/Creatinine Ratio 11.1 Glucose 237 H POC Glucose (mg/dL) 319 H Calcium 8.7 HIV 1&2 Antibody Assessment: 1. multiple hepatic abscesses due to klebsiella 2. alcohol abuse in brief remission 3. IDDM with DKA 4. cephalexin allergy, tolerating well Plan: 1. continue ceftriaxone 2 gm daily and add flagyl 500 mg po bid to complete 6 weeks of treatment with fu CT scan at the end 2. weekly cbc, cmp, crp while on iv antibiotics 35 minutes floor time >50% face to face with patient and support person discussing abx plans and prognosis.
--- NOTE | 2018-03-15 16:21 | PN ---
Subjective Date of Service: 03/15/18 Interval History: Ms. Felix is feeling better today. He reports decreased chest discomfort since starting diltiazem. He did have some nausea with antibiotic earlier today. He and his friend have many questions about diabetes management, particularly medications. He denies SOB, dizziness. Family History: Unchanged from Admission Social History: Unchanged from Admission Past Medical History: Unchanged from Admission Objective Active Medications: Acetaminophen (Tylenol Tab*) 650 mg PO Q4H PRN PAIN Al Hydrox/Mg Hydrox/Simethicone (Maalox Plus*) 30 ml PO Q4H PRN INDIGESTION Aspirin (Aspirin Ec Tab*) 81 mg PO DAILY [facility] Atorvastatin Calcium (Lipitor*) 10 mg PO 1700 [facility]; Protocol Dextrose (D50w Syringe 50 Ml*) 12.5 gm IV PUSH .FOR FS < 60 - SS PRN FS < 60 Diltiazem HCl (Cardizem Tab*) 30 mg PO QID [facility] Famotidine (Pepcid Tab*) 20 mg PO DAILY [facility] Folic Acid (Folvite Tab*) 1 mg PO DAILY [facility] Glipizide (Glucotrol Tab*) 5 mg PO 0800,1700 [facility] Ceftriaxone Sodium 2 gm/ (Sodium Chloride) 100 mls @ 200 mls/hr IVPB Q24H [facility] Insulin Glargine (Lantus(*)) 35 units SUBCUT Q24H [facility] Insulin Human Lispro (Humalog*) 0 units SUBCUT ACHS [facility]; Protocol Insulin Human Lispro (Humalog*) 0 units SUBCUT [facility]; Protocol Loperamide HCl (Imodium Cap*) 2 mg PO .SEE DIRECTIONS PRN DIARRHEA Lorazepam (Ativan Inj*) 2 mg IV PUSH Q6H PRN ANXIETY/WAM SYMPTOMS Metronidazole (Flagyl Tab*) 500 mg PO BID [facility] Morphine Sulfate (Morphine Vial*) 2 mg IV Q2H PRN PAIN Multivitamins/Minerals (Theragran/Minerals Tab*) 1 tab PO DAILY [facility] Ondansetron HCl (Zofran Inj*) 4 mg IV Q6H PRN NAUSEA Pantoprazole Sodium (Protonix Tab (Nf)) 40 mg PO BEDTIME [facility] Potassium Phos/Sodium Phos (Neutra Phos 250 Mg Avelino*) 250 mg PO TID [facility] Thiamine HCl (Vitamin B-1 Tab*) 100 mg PO DAILY [facility] Vital Signs - 8 hr 03/15/18 11:42 Temperature 97.9 F Pulse Rate 87 Respiratory 20 Rate Blood Pressure 129/72 (mmHg) O2 Sat by Pulse 96 Oximetry Oxygen Devices in Use Now: None Appearance: Middle-aged male sitting in bed in NAD Eyes: No Scleral Icterus Ears/Nose/Mouth/Throat: Mucous Membranes Moist Neck: NL Appearance and Movements; NL JVP, Trachea Midline Respiratory: Symmetrical Chest Expansion and Respiratory Effort, Clear to Auscultation Cardiovascular: NL Sounds; No Murmurs; No JVD, RRR Abdominal: NL Sounds; No Tenderness; No Distention Extremities: No Edema Skin: No Rash or Ulcers Neurological: Alert and Oriented x 3, NL Gait Lines/Tubes/Other Access: Clean, Dry and Intact PICC Line Nutrition: Taking PO's Result Diagrams: 03/15/18 07:54 03/15/18 07:54 Assess/Plan/Problems-Billing Assessment: Mr. Felix is a 52 yo M with PMH of DM and HLD who presented to the ED with c/ o flu-like symptoms and was found to be in DKA; was admitted to the ICU and transferred to on 03/13. - Patient Problems (1) DKA (diabetic ketoacidoses) Code(s): E13.10 - OTH DIABETES MELLITUS WITH KETOACIDOSIS WITHOUT COMA Comment : - Resolved with insulin drip - History of noncompliance with medications; reportedly follows with Endocrine at [place] - Hgb A1c 10.6% - Appreciate Endocrinology consult; recommends increasing Lantus and adding glipizide - Continue glargine (increased to 35 units), lispro SS and carb counting; start glipizide (2) Bacteremia Code(s): R78.81 - BACTEREMIA Comment: - Klebsiella pneumoniae in 4/4 bottles; repeat cultures negative - Appreciate ID consult; recommends 6 weeks abx - PICC line today - Continue ceftriaxone and Flagyl per ID (3) Hepatic abscess Code(s): K75.0 - ABSCESS OF LIVER Comment: - Unclear etiology - Plan as above (4) Chest pain, non-cardiac Code(s): R07.89 - OTHER CHEST PAIN Comment: - Based on history and presentation, suspect esophageal spasm; no cardiac concerns - Continue pantoprazole, diltiazem (5) Alcohol abuse Code(s): F10.10 - ALCOHOL ABUSE, UNCOMPLICATED Comment: - Reportedly drinks up to 16oz of liquor daily - Verbalizes desire to remain sober - Appreciate social work consult (6) ERICKA (acute kidney injury) Code(s): N17.9 - ACUTE KIDNEY FAILURE, UNSPECIFIED Comment: - Now resolved (7) DVT prophylaxis Comment: - SCDs (8) Full code status Code(s): Z78.9 - OTHER SPECIFIED HEALTH STATUS Comment: Status and Disposition: Inpatient for continued blood glucose monitoring. Anticipate d/c home when medically stable. Will need 6 weeks of IV antibiotics at outpatient infusion. Attending: Favio Simpson
[2018-03-15] MEDS: Atorvastatin* 10 MG TAB PO SCH (17:36)
[2018-03-15] MEDS: glipiZIDE TAB* 5 MG PO SCH (17:36)
[2018-03-15] MEDS: Pantoprazole TAB * 40 MG TAB PO SCH (20:08)
[2018-03-16 06:46] LABS: BUN/Creatinine Ratio 13.8 (8-20); Calcium 8.9 mg/dL (8.6-10.3); EGFR African American 112.4 (>60); EGFR Non-African American 92.9 (>60); Potassium 3.8 mmol/L (3.5-5.0)
[2018-03-16] MEDS ORDERED: Insulin GLARGINE(*) 1 UNITS UNIT SUBCUT SCH ×2 (07:00→07:15)
[2018-03-16] MEDS: Insulin LISPRO* 1 UNITS UNIT SUBCUT SCH ×4 (08:26→13:22)
[2018-03-16] MEDS: Multivitamins/Minerals TAB PO SCH (08:40)
[2018-03-16] MEDS: glipiZIDE TAB* 5 MG PO SCH (08:40)
[2018-03-16] MEDS: Aspirin EC TAB* 81 MG TAB.EC PO SCH (08:40)
[2018-03-16] MEDS: Folic Acid TAB* 1 MG PO SCH (08:40)
[2018-03-16] MEDS: metroNIDAZOLE TAB* 250 MG PO SCH (08:40)
[2018-03-16] MEDS: Thiamine TAB* 100 MG TAB PO SCH (08:40)
[2018-03-16] MEDS: Diltiazem TAB* 30 MG PO SCH ×2 (08:41→12:52)
--- NOTE | 2018-03-16 10:04 | PN ---
Progress Note - Progress Note Date of Service: 03/16/18 SOAP: Subjective: CC: liver abscess HPI: 52 year old IDDM man with DKA and liver abscess. His appetite is good, no diarrhea fever or rash. BG coming down per his report running low 200's. Objective: Vital Signs Temp 36.6 C 03/15/18 11:42 Pulse 87 03/15/18 11:42 Resp 20 03/15/18 11:42 BP 129/72 03/15/18 11:42 Pulse Ox 96 03/15/18 11:42 Intake & Output 03/14/18 03/15/18 03/15/18 18:59 06:59 18:59 Intake Total 600 0 Output Total 0 1000 Balance 600 -1000 Intake: Oral 600 0 Output: Urine 0 1000 Other: Estimated Void Large # Bowel Movements 1 Estimated Stool Amount Large # Voids 1 2 Gen:awake, no distress HEENT: no thrush Heart:RRR no murmur Lungs:CTA BL Abd:+BS NTND soft Skin: no rash Laboratory Results - last 24 hr 03/11/18 03/14/18 03/14/18 16:14 17:00 20:16 WBC RBC Hgb Hct MCV MCH MCHC RDW Plt Count MPV Neut % (Auto) Lymph % (Auto) [place] % (Auto) Eos % (Auto) Baso % (Auto) Absolute Neuts (auto) Absolute Lymphs (auto) Absolute Monos (auto) Absolute Eos (auto) Absolute Basos (auto) Absolute Nucleated RBC Nucleated RBC % Sodium Potassium Chloride Carbon Dioxide Anion Gap BUN Creatinine Est GFR ( Amer) Est GFR (Non-Af Amer) BUN/Creatinine Ratio Glucose POC Glucose (mg/dL) 283 H 327 H Calcium HIV 1&2 Antibody Nonreactive 03/14/18 03/15/18 03/15/18 23:59 03:58 07:44 WBC RBC Hgb Hct MCV MCH MCHC RDW Plt Count MPV Neut % (Auto) Lymph % (Auto) [place] % (Auto) Eos % (Auto) Baso % (Auto) Absolute Neuts (auto) Absolute Lymphs (auto) Absolute Monos (auto) Absolute Eos (auto) Absolute Basos (auto) Absolute Nucleated RBC Nucleated RBC % Sodium Potassium Chloride Carbon Dioxide Anion Gap BUN Creatinine Est GFR ( Amer) Est GFR (Non-Af Amer) BUN/Creatinine Ratio Glucose POC Glucose (mg/dL) 183 H 194 H 238 H Calcium HIV 1&2 Antibody 03/15/18 03/15/18 03/15/18 07:54 07:54 12:18 WBC 7.8 RBC 4.17 Hgb 13.2 L Hct 38 L MCV 91 MCH 32 H MCHC 35 RDW 13 Plt Count 198 MPV 7.4 Neut % (Auto) 60.9 Lymph % (Auto) 22.0 [place] % (Auto) 16.2 Eos % (Auto) 0.5 Baso % (Auto) 0.4 Absolute Neuts (auto) 4.8 Absolute Lymphs (auto) 1.7 Absolute Monos (auto) 1.3 H Absolute Eos (auto) 0 Absolute Basos (auto) 0 Absolute Nucleated RBC 0 Nucleated RBC % 0.1 Sodium 140 Potassium 3.2 L Chloride 102 Carbon Dioxide 29 Anion Gap 9 BUN 10 Creatinine 0.90 Est GFR ( Amer) 108.1 Est GFR (Non-Af Amer) 89.3 BUN/Creatinine Ratio 11.1 Glucose 237 H POC Glucose (mg/dL) 319 H Calcium 8.7 HIV 1&2 Antibody Assessment: 1. multiple hepatic abscesses due to klebsiella 2. alcohol abuse in brief remission 3. IDDM with DKA 4. cephalexin allergy, tolerating well Plan: 1. continue ceftriaxone 2 gm daily and add flagyl 500 mg po bid to complete 6 weeks of treatment 2. weekly cbc, cmp, crp while on iv antibiotics Discussed with Trini De Dios NP
[2018-03-16 11:24] VITALS: BP 130/74
[2018-03-16 11:32] LABS: Albumin 3.2 g/dL (3.2-5.2); Albumin/Globulin Ratio 1.1 (1-3); C Reactive Protein 114.91 mg/L (<8.01); Globulin 2.9 g/dL (2-4); Total Bilirubin 0.6 mg/dL (0.2-1.0); Total Protein 6.1 g/dL (6.4-8.9)
[2018-03-16] MEDS: cefTRIAXone(*) 2 GM in NS 0.9% 100 ML* 100 ML IVPB SCH (12:52)
--- NOTE | 2018-03-16 20:02 | DS ---
CC: Dr. Danny Berkowitz; Shweta Liu NP * DISCHARGE SUMMARY: DATE OF ADMISSION: 03/11/18 DATE OF DISCHARGE: 03/16/18 PRIMARY CARE PROVIDER: Dr. Danny Berkowitz. INSPECTOR PRODUCTION PLASTIC PARTS: Shweta Liu NP ATTENDING PHYSICIAN: Dr. Ashlyn Diaz * (dictated by Trini De Dios NP) PRIMARY DIAGNOSES: 1. Diabetic ketoacidosis. 2. Bacteremia secondary to hepatic abscesses. 3. Esophageal spasm. 4. Acute kidney injury. SECONDARY DIAGNOSES: 1. Alcohol abuse. 2. Hyperlipidemia. 3. Sepsis. STUDIES WHILE IN THE HOSPITAL: 1. Chest x-ray on 03/11/18 reads as no evidence for acute intrathoracic disease. 2. EKG on 03/13/18 shows normal sinus rhythm with a rate of 92, QTc 467, no ischemic changes, though I will note that this EKG is of poor quality. 3. EKG on 03/13/18 shows normal sinus rhythm with a rate of 96, QTc 453, no ischemic changes. 4. Chest, abdomen, and pelvis CTA on 03/13/18 reads as there are several low attenuation lesions within the inferior margin of the right lobe of the liver, largest measuring up to 1.7 cm in size and also containing gas, most consistent with hepatic abscesses. There is a linear defect within the periphery of the spleen, which may represent a small splenic infarct. No pulmonary arterial filling defect to suggest pulmonary embolism. 5. Transthoracic echocardiogram on 03/14/18 reads as global left ventricular wall motion and contractility are within normal limits. Left ventricular systolic function is at the lower limits of normal. The estimated ejection fraction is 50% to 55%. The right ventricular global systolic function is mildly reduced. There is trace aortic regurgitation. There is no evidence of aortic stenosis. There is trace mitral regurgitation. There is trace tricuspid regurgitation. Unable to estimate the right ventricular systolic pressure. There is no significant pericardial effusion. There was no prior study for comparison. CONSULTATIONS WHILE IN THE HOSPITAL: 1. The patient was seen in consultation by Dr. Ramirez from Infectious Disease on 03/14/18 for bacteremia. 2. The patient was seen in consultation by Dr. Teague from Endocrinology on 03/15 for uncontrolled diabetes. HISTORY OF PRESENT ILLNESS AND HOSPITAL COURSE: Mr. Felix is a 52-year-old male with past medical history of diabetes and hyperlipidemia who presented to the emergency room on 03/11/18 with flu-like symptoms. Please see the history and physical by Dr. Lock for complete summary of the events leading up to this hospitalization. In short, the patient reported a recent ear infection for which he was taking amoxicillin. He reported that since that diagnosis, he was unable to tolerate food and was therefore not taking his insulin. In the emergency room, he was found to be in DKA with a serum bicarb of less than 7. His serum glucose was 750 and he was noted to be in acute renal failure. The patient also reported drinking up to 16 ounces of hard liquor per day. He was admitted to the intensive care unit by the wind development director. The patient was placed on a heparin drip and received aggressive IV hydration. He was placed on [facility] protocol for monitoring of alcohol withdrawal and he was continued on amoxicillin for his ear infection. Glucose was able to be controlled with the insulin drip and the patient was ultimately taken off of this and transferred up to the telemetry floor on 03/13/18. He had been complaining of intermittent sharp chest pain. A cardiac cause was ruled out due to negative troponins and no EKG changes. An abdomen CT was performed as noted above, which was remarkable for hepatic abscesses. He was also noted to have 4/4 blood culture bottles positive for Klebsiella pneumoniae for which he was placed on Zosyn. Infectious Disease was consulted due to the bacteremia. Dr. Ramirez recommended 6 weeks of ceftriaxone IV and Flagyl p.o. due to the presence of bacteremia with hepatic abscesses. The patient had a PICC line placed for long-term IV antibiotics. The patient continued to have intermittent sharp chest pain lasting typically less than 10 seconds at a time due to recent episodes of emesis and dry heaves, it was determined that this likely represented esophageal spasm and the patient was started on diltiazem q.i.d. with good relief in symptoms. Acute kidney injury resolved after receiving IV fluids. The patient was also seen in consultation by Dr. Teague as he was noted to have a hemoglobin A1c of 10.6%. Dr. Teague recommended increasing glargine to 45 units daily and titrating to achieve fasting a.m. blood glucose of less than 150. He also recommended starting glipizide b.i.d. during this admission and metformin on discharge. He recommended followup with the patient's usual brush loader and handle attacher. The patient's glargine was increased to 45 units today, a.m. glucose was 240. I did speak with Dr. Teague who felt comfortable with me sending the patient home on 45 units of glargine daily with plans to titrate up as needed to achieve appropriate blood glucose control. I did also speak with Dr. Ramirez who felt as though from an Infectious Disease standpoint, the patient was stable for discharge as all of his vital signs have been normal and his white count has normalized. I will note that he did meet sepsis criteria on admission with leukocytosis, tachycardia, tachypnea, and lactic acidosis. I have spoken at length with the patient and his friend who are agreeable to discharge. The patient reports feeling well. He reports significant decrease in chest pain after starting diltiazem, although does not want to continue it at this point, as he does not want to add anymore medications to his medication regimen. He has understanding of the need for alcohol abstinence in order to achieve appropriate glucose control. He is willing to titrate glargine as necessary. He offers no complaints today and is anxious to return home. Mr. Felix is stable for discharge today. Vital signs are as follows: Temp 98.9, heart rate 88, respiratory rate 16, oxygen saturation 94% on room air, blood pressure 130/74. DISCHARGE MEDICATIONS: New medications: 1. Ceftriaxone 2 g IV daily x40 days. 2. Metronidazole 500 mg p.o. b.i.d. x40 days. 3. Glipizide 5 mg p.o. b.i.d. 4. Metformin ER 750 mg p.o. daily. 5. Folic acid 1 mg p.o. daily. 6. Multivitamin 1 tab p.o. daily. 7. Thiamine 100 mg p.o. daily. Changed medications: 1. Glargine 45 units subcu daily (previously was 30 units daily). Continued medications: 1. Aspirin 81 mg p.o. daily. 2. Lovastatin 40 mg p.o. daily. DISCHARGE PLAN: Mr. Felix will be discharged home. Activity will be as tolerated. He has been advised not to lift more than 10 pounds with his right arm due to the presence of a PICC line. He has been provided with a work note that notes this lifting restriction. Diet should be diabetic, consistent carb. Medications are noted above. The patient's glargine has been increased and I have added glipizide and metformin per the recommendations of Endocrinology. The patient will also need to complete 40 days of IV ceftriaxone and p.o. Flagyl to complete a total of 6 weeks of antibiotic therapy. Infectious Disease notes that the patient will need weekly CBC, CMP, and CRP while receiving antibiotics and I have ordered 6 weeks worth of these labs. He also recommends a followup CT scan after the antibiotic course is complete. I have ordered this as well. I have noted that all results of these labs and the CT scan should be sent to the patient's PCP and Dr. Ramirez. The patient has been referred to [facility] for diabetes education. He will need to follow up with his primary care provider in 4 to 7 days. He should follow up with his brush loader and handle attacher in 4 to 6 weeks for the recommendation of [facility] Endocrinology. The patient has been advised to return to the emergency room or nearest hospital for any worsening of symptoms, shortness of breath, lightheadedness, dizziness, chest discomfort, high fevers, chills, night sweats, loss of consciousness or any other worrisome signs or symptoms. This is a summarized report of a complex medical history and hospital stay. For further details, please see the entire medical record. TIME SPENT: Approximately 60 minutes was spent on this discharge. TRINI DE DIOS NP [id number]/[facility] [place]: [id number] KINJAL
== END 2018-03-16 14:20 | disposition home or self-care (01) | DRG 720 ==
LOC: ED 15:19 → ICU 18:04 → MEDTELE 03-13 19:05
PROVIDERS: ADMIT Internal Medicine; ATTEND Internal Medicine
PROC: 05H533Z Insertion of Infusion Device into Right Subclavian Vein, Percutaneous Approach (ICD-10-PCS; principal; 2018-03-15)
DX: A41.9 Sepsis, unspecified organism (principal); K75.0 Abscess of liver; E11.10 Type 2 diabetes mellitus with ketoacidosis without coma; N17.9 Acute kidney failure, unspecified; K22.4 Dyskinesia of esophagus; F10.10 Alcohol abuse, uncomplicated; E78.5 Hyperlipidemia, unspecified; B96.1 Klebsiella pneumoniae [K. pneumoniae] as the cause of diseases classified elsewhere; R07.89 Other chest pain; H66.90 Otitis media, unspecified, unspecified ear; E66.9 Obesity, unspecified; Z88.2 Allergy status to sulfonamides; Z88.8 Allergy status to other drugs, medicaments and biological substances; Z87.891 Personal history of nicotine dependence; Z82.49 Family history of ischemic heart disease and other diseases of the circulatory system; Z79.4 Long term (current) use of insulin; Z91.14 Patient's other noncompliance with medication regimen; Z68.30 Body mass index [BMI] 30.0-30.9, adult
CPT/HCPCS: 36415; 71045; 71275; 74177; 80048; 80053; 81003; 81015; 82803; 82947; 83036; 83605; 83735; 84100; 84443; 84484; 85025; 86140; 86703; 87040; 87077; 87086; 87186; 87205; 87641; 93005; 93306; 99285; A9270-GY; C1751; J0696; J1815; J2270; J2405; J2543; J2765; J3370; J3480; Q9967

== ENCOUNTER 2019-06-12 10:11 | Inpatient (IN) | payer BC ==
[2019-06-12] MEDS ORDERED: Ondansetron INJ* 2 MG/ML VIAL IV ONE (10:14)
[2019-06-12] MEDS ORDERED: NS 0.9% 1000 ML** 1,000 ML IV ONE ×2 (10:14)
--- NOTE | 2019-06-12 10:18 | ED ---
GI/ HPI - HPI Summary HPI Summary: 53 y/o M with hx diabetes (on insulin), DKA, liver abscess (Feb 2018), ETOH abuse, intermittent diarrhea presenting to [facility] from [facility] c/o nausea /vomiting and fatigue x2 days. He vomited x3 today and x2 yesterday. He denies diarrhea, fever, cough. He follows with Dr. Ramirez. Symptoms aggravated by and alleviated by nothing. Medications reviewed. Allergies reviewed. - History of Current Complaint Time Seen by Provider: 06/12/19 10:13 Stated Complaint: DIABETIC ISSUE AND VOMITING PER PT Hx Obtained From: Patient, Medical Records Onset/Duration: Started Days Ago - 2, Still Present Timing: Intermittent Associated Signs and Symptoms: Positive: Other: - fatigue; NEG: diarrhea, fever , cough Aggravating Factor(s): Nothing Alleviating Factor(s): Nothing - Additional Pertinent History Primary Care Physician: IVÁN - Allergy/Home Medications Allergies/Adverse Reactions: Allergies Allergy/AdvReac Type Severity Reaction Status Date / Time cephalexin [From Keflex] Allergy Rash Verified 04/22/18 08:13 Sulfa (Sulfonamide Allergy Rash Verified 04/22/18 08:13 Antibiotics) Home Medications: Home Medications Aspirin EC TAB* [Ecotrin EC Low Dose 81 MG*] 81 mg PO DAILY 03/11/18 [History Confirmed 06/12/19] Multivitamins/Minerals TAB* [Theragran/minerals TAB*] 1 tab PO DAILY tab [Rx Confirmed 06/12/19] Acetaminophen TAB* [Tylenol TAB*] 650 mg PO Q4H PRN 06/12/19 [History Confirmed 06/12/19] Insulin ISOPH/REG 70/30 (*) [HumuLIN 70/30 units/ml 10 ml VIAL (*)] 0 units SUBCUT .SEE INSTRUCTIONS 06/12/19 [History Confirmed 06/12/19] Rosuvastatin (NF) [Crestor (NF)] 40 mg PO BEDTIME 06/12/19 [History Confirmed ] Thiamine TAB* [Vitamin B-1 TAB*] 100 mg PO DAILY 06/12/19 [History Confirmed ] PMH/Surg Hx/FS Hx/Imm Hx Endocrine/Hematology History: Reports: Hx Diabetes - TYPE 1 Denies: Hx Anticoagulant Therapy, Hx Blood Disorders, Hx Blood Transfusions, Hx Bone Marrow Disease, Hx Systemic Lupus Erythematosus, Hx Sickle Cell Disease , Hx Thyroid Disease, Hx Anemia, Hx Unexplained Bleeding Cardiovascular History: Reports: Hx Hypercholesterolemia Denies: Hx Aneurysm, Hx Angina, Hx Angioplasty, Hx Auto Implanted Cardiovert Defib, Hx Cardiac Arrest, Hx Cardiomegaly, Hx Congenital Heart Disease, Hx Congestive Heart Failure, Hx Coronary Artery Disease, Hx Deep Vein Thrombosis, Hx Embolism, Hx Hypotension, Hx Hypertension, Hx Pacemaker/ICD, Hx Peripheral Vascular Disease, Hx Rheumatic Fever, Hx Syncope, Hx Valvular Heart Disease, Other Cardiovascular Problems/Disorders GI History: Denies: Hx Cirrhosis, Hx Crohn's Disease, Hx Diverticulosis, Hx Gall Bladder Disease, Hx Gastroesophageal Reflux Disease, Hx Gastrointestinal Bleed, Hx Hiatal Hernia, Hx Irritable Bowel, Hx Jaundice, Hx Obstructive Bowel, Hx Ileostomy, Hx Pyloric Stenosis, Hx Ulcer Sensory History: Reports: Hx Contacts or Glasses Denies: Hx Cataracts, Hx Eye Injury, Hx Eye Prosthesis, Hx Glaucoma, Hx Legally Blind, Hx Macular Degeneration, Hx Vision Problem, Hx Deafness, Hx Hearing Aid, Hx Hearing Problem, Other Sensory Impairments Opthamlomology History: Reports: Hx Contacts or Glasses Denies: Hx Cataracts, Hx Eye Injury, Hx Eye Prosthesis, Hx Glaucoma, Hx Legally Blind, Hx Macular Degeneration, Hx Vision Problem, Other Sensory Impairments Psychiatric History: Reports: Hx Depression - per pt report, Hx Substance Abuse - ETOH use since teenager - Surgical History Surgical History: Yes Surgery Procedure, Year, and Place: colonoscopy Infectious Disease History: Denies: Hx Clostridium Difficile, Hx Hepatitis, Hx Human Immunodeficiency Virus (HIV), Hx of Known/Suspected MRSA, Hx Shingles, Hx Tuberculosis, History Other Infectious Disease - Family History Known Family History: Negative: Diabetes - Social History Alcohol Use: Daily Substance Use Type: Reports: None Hx Tobacco Use: Yes Smoking Status (MU): Former Smoker Type: Cigarettes Have You Smoked in the Last Year: No Review of Systems Positive: Fatigue. Negative: Fever Negative: Cough Positive: Vomiting, Nausea. Negative: Diarrhea All Other Systems Reviewed And Are Negative: Yes Physical Exam - Summary Physical Exam Summary: Constitutional: Well-developed, Well-nourished, Alert. (-) Distressed Skin: Warm, Dry HENT: Normocephalic; Atraumatic; dry mucous membranes Eyes: Conjunctiva normal Neck: Musculoskeletal ROM normal neck. (-) JVD, (-) Stridor, (-) Nuchal rigidity Cardio: Rhythm regular, tachycardic, Heart sounds normal; Intact distal pulses; Radial pulses are 2+ and symmetric. (-) Murmur Pulmonary/Chest wall: Effort normal. (-) Respiratory distress, (-) Wheezes, (-) Rales Abd: Soft, (-) tenderness, (-) Distension, (-) Guarding, (-) Rebound Musculoskeletal: (-) Edema Lymph: (-) Cervical adenopathy Neuro: Alert, Oriented x3 Psych: Mood and affect Normal Triage Information Reviewed: Yes Vital Signs Reviewed: Yes Procedures - Sedation Patient Received Moderate/Deep Sedation with Procedure: No Diagnostics - Laboratory Result Diagrams: 06/12/19 10:39 06/12/19 10:39 Lab Statement: Any lab studies that have been ordered have been reviewed, and results considered in the medical decision making process. - Radiology CXR Radiology Interpretation Completed By: Radiologist - IMPRESSION: NO ACTIVE CARDIOPULMONARY DISEASE. ED physician has reviewed this imaging report. Re-Evaluation - Re-Evaluation First Eval Re-Evaluation Time: 11:17 - aware of lactic 2.7 GIGU Course/Dx - Course Course Of Treatment: 53 y/o male w hx IDDM and hepatic abscess p/w n/v and dehydration. - labs w WBC 17, suspect dehydration but given elevated LA and tachycardia will treat for sepsis w IVF, vanc/zosyn, obtain BC. Given 2 L IVF. Unclear source. Minimal abd pain, CXR neg. UA w/o infection. - labs notable for pH 7.17, GAP 24, bicarb 16. Start on insulin gtt for DKA. -admit to ICU - Diagnoses Provider Diagnoses: DKA (diabetic ketoacidoses), Nausea & vomiting - Physician Notifications Discussed Care Of Patient With: Jacy Gentile - Recommends admission to ICU. 1217 Dr. Bah accepts the patient. Time Discussed With Above Provider: 11:48 - Critical Care Time Critical Care Time: 30-74 min - Upon my evaluation, this patient had a high probability of imminent or life-threatening deterioration due to DKA which required my direct attention, intervention, and personal management. I have personally provided 35 minutes of critical care time exclusive of time spent on separately billable procedures. Time includes review of laboratory data, radiology results, discussion with consultants, and monitoring for potential decompensation. Interventions were performed as documented above. Critical Care Statement: Critical care time is provided exclusive of any time spent performing procedures. Discharge ED - Sign-Out/Discharge Documenting (check all that apply): Patient Departure - Discharge Plan Condition: Stable Disposition: ADMITTED TO [facility] Referrals: Danny Berkowitz MD [Primary Care Provider] - - Billing Disposition and Condition Condition: STABLE Disposition: Admitted to [facility] - Attestation Statements Document Initiated by Scribe: Yes Documenting Scribe: Toya Robles Provider For Whom Luis Fe is Documenting (Include Credential): Darryl Campoverde MD Scribe Attestation: IToya, scribed for Darryl Campoverde MD on 06/12/19 at 1218. Scribe Documentation Reviewed: Yes Provider Attestation: The documentation as recorded by the scribeToya accurately reflects the service I personally performed and the decisions made by me, Darryl Campoverde MD Status of Scribe Document: Viewed
--- OUTSIDE RECORDS SUMMARY | 2019-06-12 10:46 | XMS REPORT | Summary of Care ---
:1965 Author Organization [facility] Address [address] [facility] [place] [address] Care Team Providers Name Role Phone Danny Berkowitz Primary Care Provider Reason for Visit Reason Comments Follow Up pt presents for follow up with diabetes and right shoulder pain Encounter Details Date Type Department Care Team Description 05/09/2019 Office Visit [facility] Danny Berkowitz MD Type 1 diabetes mellitus without complication (HCC) (Primary Dx); Practice [address] Dyslipidemia; [address] [place] [address] Superior glenoid labrum lesion of right shoulder, [place] [address] [phone] Allergies Active Allergy Reactions Severity Noted Date Comments Sulfamethoxazole W/Trimethoprim Dermatologic Reaction Medium 06/30/2012 Keflex Rash 09/07/2007 Sulfa Antibiotics Rash 12/05/2015 documented as of this encounter (statuses as of 05/09/2019) Medications Medication Sig Dispensed Refills Start Date End Date Status Aspirin 81 MG Oral Take by mouth 0 Active Tab EC EVERY BEDTIME. acetaminophen Take 650 mg by 0 Active (TYLENOL) 325 MG mouth EVERY Oral Tab FOUR HOURS NEEDED. Lancets Does not by Does not 300 Each 5 08/26/2010 Active apply Misc apply route. by Does not apply route. 2. Dx:250.00 3. Insulin dependent 4. Test Blood Glucose 3 time(s) A DAY Glucose Blood (ONE 1 Each by Does 300 Strip 3 08/13/2016 Active TOUCH ULTRA TEST not apply STRIPS) In Vitro route THREE Strip TIMES DAILY. Insulin Pen Needle Inject 1 Each 300 Each 3 05/07/2017 Active (NOVOFINE) 32G X 6 beneath the MM Does not apply skin TWICE Misc DAILY. Multiple Take 1 Tab by 30 Tab 5 03/21/2018 Active Vitamins-Minerals mouth DAILY. (THERAGRAN-M ADVANCED 50 PLUS) Oral Tab thiamine (VITAMIN take 1 tablet 30 Tab 0 04/21/2018 Active B1) 100 MG Oral by mouth once Tab daily Rosuvastatin Take 20 mg by 0 Active Calcium (CRESTOR) mouth DAILY. 10 MG Oral Tab Insulin Glargine Inject 30 0 Active (LANTUS SOLOSTAR) Units beneath 100 UNIT/ML the skin EVERY Subcutaneous BEDTIME. Solution Pen-injector Insulin Disposable 1 Kit by Does 0 Active Pump (V-GO 20) not apply Does not apply Kit route DAILY. metFORMIN HCL 750 Take 1 Tab by 90 Tab 0 03/22/2018 Discontinued (No MG Oral TABLET SR mouth DAILY. 0 longer 24 HR clinically indicated) glipiZIDE Take 1 Tab by 180 Tab 0 03/22/2018 Discontinued (No (GLUCOTROL) 5 MG mouth TWICE 0 longer Oral Tab DAILY. clinically indicated) Insulin Inject 20 0 Discontinued (No Degludec-Liragluti Units beneath 0 longer de (XULTOPHY) the skin clinically 100-3.6 UNIT-MG/ML DAILY. indicated) Subcutaneous Solution Pen-injector documented as of this encounter (statuses as of 05/09/2019) Active Problems Problem Noted Date BMI 29.0-29.9,adult 04/05/2015 Dyslipidemia 04/02/2009 Type 1 diabetes mellitus documented as of this encounter (statuses as of 05/09/2019) Resolved Problems Problem Noted Date Resolved Date DM (diabetes mellitus), type 1, uncontrolled 04/05/2015 12/27/2018 DKA (diabetic ketoacidoses) 06/30/2012 12/27/2018 Overview: [facility] admission 05/2012 Type II or unspecified type diabetes mellitus without mention 04/02/2009 of complication, not stated as uncontrolled documented as of this encounter (statuses as of 05/09/2019) Immunizations Name Administration Dates Next Due Hepatitis B Vaccine Adult 02/13/2011, 09/12/2010, 08/15/2010 Influenza (IM) Preservative Free 01/09/2019, 12/21/2017, 01/11/2012, 12/17/2010, 03/05/2010, 01/11/2008 Influenza (IM) W/Pres 12/15/2016, 12/14/2014, 01/29/2014 PNEUMOCOCCAL POLYSACCHARIDE VACCINE 12/15/2016 documented as of this encounter Social History Tobacco Use Types Packs/Day Years Used Date Former Smoker Cigarettes 1 20 Quit: 07/24/2007 Smokeless Tobacco: Never Used Alcohol Use Drinks/Week oz/Week Comments Not Currently Sex Assigned at Date Recorded Not on file documented as of this encounter Last Filed Vital Signs Vital Sign Reading Time Taken Comments Blood Pressure 108/64 05/09/2019 8:08 AM EDT Pulse 79 05/09/2019 8:08 AM EDT Temperature - - Respiratory Rate - - Oxygen Saturation 99% 05/09/2019 8:08 AM EDT Inhaled Oxygen Concentration - - Weight 81.9 kg (180 lb 9.6 oz) 05/09/2019 8:08 AM EDT Height 167.6 cm (5' 6") 05/09/2019 8:08 AM EDT Body Mass Index 29.15 05/09/2019 8:08 AM EDT documented in this encounter Progress Notes Danny Berkowitz MD - 05/09/2019 8:00 AM EDT PATIENT: Shelton Felix : 1965 DATE OF SERVICE: 05/09/2019 CHIEF COMPLAINT: Chief Complaint Patient presents with ? Follow Up pt presents for follow up with diabetes and right shoulder pain Subjective HISTORY OF PRESENT ILLNESS: Shelton Felix is a 53-y.o. male. in for follow up of diabetes mellitus. He/ is checking their sugars *with laura He went on lantus 20 just [address] Teague fastng reasonable , spike with a meal . He is on the pump He reports hypoglycemic symptoms. Last eye check Februry /without retinopathy Denies foot complaints Denies headache, vision problems, chest pain, shortness of breath, focal neurological synptoms or edema. In for follow up of hyperlipidemia. no side effects to medicines and Dr Teague increased the dose aswas high. Patient drinking soda . He had mri showing lipoma which we suspected but alsoa slap tear Pain mostly at night. Past Medical History: Diagnosis Date ? Diverticulosis 2019 hemorrhoids ? Hepatic abscess ? Other and unspecified hyperlipidemia ? Type 1 diabetes mellitus (HCC) Family History Problem Relation Age of Onset ? Heart Mother late 60s ? Heart Sister ? Hypertension Brother ? Heart Brother Current Outpatient Medications Medication Sig ? acetaminophen (TYLENOL) 325 MG Oral Tab Take 650 mg by mouth EVERY FOUR HOURS NEEDED. ? Aspirin 81 MG Oral Tab EC Take by mouth EVERY BEDTIME. ? Glucose Blood (ONE TOUCH ULTRA TEST STRIPS) In Vitro Strip 1 Each by Does not apply route THREE TIMES DAILY. ? Insulin Disposable Pump (V-GO 20) Does not apply Kit 1 Kit by Does not apply route DAILY. ? Insulin Glargine (LANTUS SOLOSTAR) 100 UNIT/ML Subcutaneous Solution Pen -injector Inject 30 Units beneath the skin EVERY BEDTIME. ? Insulin Pen Needle (NOVOFINE) 32G X 6 MM Does not apply Misc Inject 1 Each beneath the skin TWICE DAILY. ? Lancets Does not apply Misc by Does not apply route. by Does not apply route. 2. Dx:250.00 3. Insulin dependent 4. Test Blood Glucose 3 time(s) A DAY ? Multiple Vitamins-Minerals (THERAGRAN-M ADVANCED 50 PLUS) Oral Tab Take 1 Tab by mouth DAILY. ? Rosuvastatin Calcium (CRESTOR) 10 MG Oral Tab Take 20 mg by mouth DAILY. ? thiamine (VITAMIN B1) 100 MG Oral Tab take 1 tablet by mouth once daily No current facility-administered medications for this visit. Allergies Allergen Reactions ? Bactrim [Sulfamethoxazole W/Trimethoprim] Dermatologic Reaction ? Keflex Rash ? Sulfa Antibiotics Rash Social History Socioeconomic History ? Marital status: Spouse name: Not on file ? Number of children: Not on file ? Years of education: Not on file ? Highest education level: Not on file Occupational History ? Not on file Social Needs ? Financial resource strain: Not on file ? Food insecurity Worry: Not on file Inability: Not on file ? Transportation needs Medical: Not on file Non-medical: Not on file Tobacco Use ? Smoking status: Former Smoker Packs/day: 1.00 Years: 20.00 Pack years: 20.00 Types: Cigarettes Last attempt to quit: 07/24/2007 Years since quittin.8 ? Smokeless tobacco: Never Used Substance and Sexual Activity ? Alcohol use: Not Currently ? Drug use: No ? Sexual activity: Not Currently Lifestyle ? Physical activity Days per week: Not on file Minutes per session: Not on file ? Stress: Not on file Relationships ? Social connections Talks on phone: Not on file Gets together: Not on file Attends mormonism service: Not on file Active member of club or organization: Not on file Attends meetings of clubs or organizations: Not on file Relationship status: Not on file ? Intimate partner violence Fear of current or ex partner: Not on file Emotionally abused: Not on file Physically abused: Not on file Forced sexual activity: Not on file Other Topics Concern ? Back Care Not Asked ? Bike Helmet Not Asked ? Blood Transfusions Not Asked ? Caffeine Concern Not Asked ? Exercise Not Asked ? Hobby Hazards Not Asked ? International Travel Not Asked ? Service Not Asked ? Occupational Exposure Not Asked ? Seat Belt Not Asked ? Self-Exams Not Asked ? Sleep Concern Not Asked ? Special Diet Not Asked ? Stress Concern Not Asked ? Weight Concern Not Asked Social History Narrative Lives in [facility] REVIEW OF SYSTEMS: ROS Objective PHYSICAL EXAM: VITALS: BP 108/64 (BP Location: Left arm, Patient Position: Sitting) | Pulse 79 | Ht 5' 6" (1.676m) | Wt 180 lb 9.6 oz (81.9 kg) | SpO2 99% | BMI 29.15 kg/m Body mass index is 29.15 kg/m. Physical Exam Vitals signs reviewed. Constitutional: Appearance: He is not ill-appearing. HENT: Mouth/Throat: Comments: Missing teeth\\ Cardiovascular: Rate and Rhythm: Normal rate and regular rhythm. Heart sounds: Normal heart sounds. Pulmonary: Effort: Pulmonary effort is normal. No respiratory distress. Breath sounds: Normal breath sounds. Musculoskeletal: Right lower leg: No edema. Left lower leg: No edema. Comments: rom shoulder ok, cuff intact Lymphadenopathy: Cervical: No cervical adenopathy. Psychiatric: Mood and Affect: Mood normal. ASSESSMENT / IMPRESSION: ICD-9-CM ICD-10-CM 1. Type 1 diabetes mellitus without complication (HCC) will get a1c and microalbumin because Dr Teaguenot getting that on next labs Last ones in the Fall was 10 250.01 E10.9 GLYCOHEMOGLOBIN A1C MICROALBUMIN, RANDOM URINE W/ CREATININE 2. Dyslipidemia Dr Teague rechecking next week the lipids and cm,p 272.4 E78.5 3. Superior glenoid labrum lesion of right shoulder, subsequent encounter V58.89 S43.431D 840.7 He can live with shoulder for now. If he had surgery would be out of work for quite a while Will call if he gets worse Plan Author: Danny Berkowitz MD 05/09/2019 08:19 documented in this encounter Plan of Treatment Date Type Specialty Care Team Description 11/16/2019 Office Visit Family Practice Danny Berkowitz MD [address] [id number] [phone] Name Type Priority Associated Diagnoses Order Schedule GLYCOHEMOGLOBIN A1C Lab Routine Type 1 diabetes mellitus Ordered: 2019 without complication (HCC) MICROALBUMIN, RANDOM URINE Lab Routine Type 1 diabetes mellitus Ordered: W/ CREATININE without complication (HCC) Health Maintenance Due Date Last Done Comments CT Colonography 1965 Diabetic Eye Exam 1965 FIT-DNA 1965 FIT/FOBT 1965 Sigmoidoscopy 1965 DTaP/Tdap/Td Vaccines (1 - 10/14/1978 Tdap) ZOSTER IMMUNIZATION SERIES 10/14/2017 (1 of 2) HEMOGLOBIN A1C 09/28/2018 06/28/2018, 11/18/2017, 07/15/2017, Additional history exists URINE MICROALBUMIN 06/29/2019 06/28/2018, 12/21/2017, 08/13/2016, Additional history exists LIPID DISORDER SCREENING 12/16/2019 12/15/2018, 12/21/2017, 03/18/2017, Additional history exists DEPRESSION SCREENING 12/28/2019 12/27/2018 FOOT EXAM 12/28/2019 12/27/2018, 12/27/2018, 12/21/2017, Additional history exists Colonoscopy 06/09/2028 06/09/2018, 06/09/2018 Colorectal Cancer Screening 06/09/2028 PNEUMOCOCCAL 0-64 YRS Completed 12/15/2016 INFLUENZA VACCINE Completed 01/09/2019, 12/21/2017, 12/15/2016, Additional history exists HEPATITIS A IMMUNIZATION Aged Out No longer eligible SERIES based on patient's age to complete this topic HPV IMMUNIZATION SERIES Aged Out No longer eligible based on patient's age to complete this topic MENINGOCOCCAL VACCINE IMM Aged Out No longer eligible based on patient's age to complete this topic documented as of this encounter Goals Goal Patient Goal Associated Recent Patient-Stated? Author Type Problems Progress Depression Depression No tato Berkowitz (PHQ-9) MD Danny total score < 5 Note: This is an individualized treatment (depression) goal for Shelton Felix: Displayed above is your goal for a depression screening (PHQ-9) score that would indicate good control of your depression. Glycohemoglobin A1c < 7.0 Diabetes 8.6 (06/28/2018 6:54 AM No Emilie Moran RN EDT) Note: This is an individualized treatment (diabetes control, HgbA1C) goal for Shelton Felix: Displayed above is your progress towards your HgbA1C goal. Your goal is shown above (on the left); your most recent HgbA1C is shown on the right. Note that lower numbers are better. Weight loss vs. 18 mo Lifestyle 8.4 (05/09/2019 8:08 AM No Jane Moran RN max (lbs) >= 10 EDT) Note: This is an individualized lifestyle goal for Shelton Felix: Your body mass index (BMI) is more than 30. You should lose weight. A reasonable starting goal is to lose 10 pounds. Displayed above is how many pounds you have lost thus far towards your 10 pound weight loss goal. Keep immunizations current Lifestyle No Emilie Moran RN Note: This is an individualized lifestyle goal for Shelton Felix: Please be sure to keep up-to-date on recommended immunizations. For example, this would include a yearly influenza vaccine. Immunization status can be seen by looking at the Health Maintenance sections of your [facility], Plan of Care, and any After Visit Summaries. Keep a regular sleep schedule Lifestyle No Danny Berkowitz MD Note: This is an individualized lifestyle goal for Shelton Felix: Please maintain a regular sleep schedule. This may help with some symptoms of depression. Take all prescribed medications as Self-management No Emilie Moran RN directed Note: This is an individualized self-management goal for Shelton Felix: Please take all prescribed medications as directed. 1. Do not skip doses. If you cannot afford your medications, talk with your doctor. 2. Use a pill reminder system such as a pill box if needed. Your pharmacist can help you with this. 3. Contact your Pharmacy 5 days before your medication runs out. If you cannot take your medications for any reasons, talk with your doctor. 4. Please bring all of your medication bottles and inhalers (or a list of all your medications/inhalers) with you to every visit. Potential barriers to meeting all of your care plan goals will continue to be addressed on an ongoing basis. documented as of this encounter Procedures Procedure Name Priority Date/Time Associated Diagnosis Comments DIABETES OPH EXAM Routine 04/10/2019 DIRECT LDL (EXTERNAL) Routine 01/06/2019 documented in this encounter Results DIABETES OPH EXAM (04/10/2019) OPHTHALMOLOGY No retinopathy No retinopathy, [facility] EXAM Retinopathy POCT Performing Organization Address [facility] Phone Number [facility] [address] [place] [address] DIRECT LDL (EXTERNAL) (01/06/2019) LDL (External) 136 [facility] POCT Performing Organization Address [facility] Phone Number [facility] [address] [place] [phone] documented in this encounter Visit Diagnoses Diagnosis Type 1 diabetes mellitus without complication (HCC) Type I (juvenile type) diabetes mellitus without mention of complication, not stated as uncontrolled Dyslipidemia Other and unspecified hyperlipidemia Superior glenoid labrum lesion of right shoulder, subsequent encounter documented in this encounter Insurance Payer Benefit Plan / Subscriber ID Effective Dates Phone Address Type Group [facility] [id number] 2018-Present [employer] Guarantor Name Account Type Relation to Date of Phone Billing Patient Address Shelton Felix Personal/Family 1965 [address] (Home) [place], [place] [phone] [id number] (Work) documented as of this encounter
--- OUTSIDE RECORDS SUMMARY | 2019-06-12 10:46 | XMS REPORT | Continuity of Care Document ---
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 Tobacco Use Start: Unknown End: Patient is a former former 1 ppd x 25 Unknown smoker years, quit 08/06/2007 Recreational Drug Use Denies Drug Use Smoking Status Reviewed: 04/19/19 Patient is a former former 1 ppd x 25 smoker years, quit 08/06/2007 Exercise Type/Frequency Does not exercise Allergies, Adverse Reactions, Alerts Active Allergies Reaction Severity Comments Date Keflex rash 03/24/2018 Sulfa Antibiotics rash 03/24/2018 Medications Active Medications SIG Qnty Indications Ordering Date Provider Lantus Solostar take 25 u at night 3ml Chas Teague MD 04/19/2019 100Unit/ML Solution Pen-Inject Baqsimi One Pack hold on file, for 2units E11.65 Chas Teague MD 2019 severe hypoglycemia 3mg/Dose Powder Humalog use with insulin 20ml E11.65 Chas Teague MD 01/12/2019 100Unit/ML pump up to 60 units Solution per day Humalog Kwikpen inject 5 units at 15ml Chas Teague MD 12/28/2018 breakfast; 7 units 100Unit/ML Solution with lunch and Pen-Inject dinner; plus sliding scale; maximum daily dose is 30 units Freestyle Precision test blood sugar 100units E11.65 Chas Teague MD 12/27 Bashir Blood Glucose once daily as Test Strips needed. Strips Freestyle Lu 14 place one sensor 2units E11.Elvia Teague MD 2018 Day/Sensor/Flash every [address] [facility] [place] 14 use at least 4 1units E11.Elvia Teague MD 2018 Day/[place]/Flash times daily with Monitoring System sensor Device Pen [place] to be used once per 400units Chas Teague MD 10/25/2018 32G X 6 day with lantus mm [facility] Rosuvastatin take 20mg once 90tabs Chas Teague MD 09/15/2018 Calcium daily 20mg Tablets Thiamine HCL 1 by mouth every Unknown 100mg day Tablets Aspirin Ec Low Dose 1 by mouth every Unknown day 81mg Tablets DR Multivitamin Men 1 daily Unknown Tablets History Medications Tresiba Flextouch 20 units once 15ml E11.65 Chas Teague MD 01/12/2019 - daily in the 01/12/2019 100Unit/ML Solution evenings, MDD 30 Pen-Inject Lantus Solostar inject 24 units 15ml E11.Elvia Teague MD 12/28/2018 - under the skin at 01/12/2019 100Unit/ML Solution bedtime or as Pen-Inject directed, mdd 36 Xultophy start 20 units one 15ml E11Gigi Teague MD 12/07/2018 - daily, increase by 12/28/2018 100-3.6Unit-mg/ML 5 units per week Solution Pen-Inject until morning blood glucose is 90-140, mdd 50 Glipizide XL 10mg once daily in 90tabs Chas Teague MD 12/07/2018 - 10mg the morning 12/28/2018 Tablets ER 24HR Immunizations Description No Information Available Vital Signs Date Vital Result Comment 04/19/2019 8:02am Height 66 inches 5'6" Weight 181.00 lb w/ shoes Heart Rate 83 /min BP Systolic Sitting 125 mmHg BP Diastolic Sitting 75 mmHg BMI (Body Mass Index) 29.2 kg/m2 01/12/2019 7:55am Height 66 inches 5'6" Weight 174.00 lb w/ shoes Heart Rate 82 /min BP Systolic Sitting 107 mmHg BP Diastolic Sitting 71 mmHg BMI (Body Mass Index) 28.1 kg/m2 Results Test Acquired Date Facility Test Result H/L Range Note Lipid Profile 12/21/2018 [facility] Triglycerides 67 mg/dL 1 (Trig/Chol/HDL) [address] [place] [address] [phone] Cholesterol 197 mg/dL 2 HDL Cholesterol 47.9 mg/dL 3 LDL Cholesterol 136 mg/dL 4 Laboratory test 12/21/2018 [facility] Hemoglobin A1c 10.3 % High 4.0-5.6 [address] (Glyco HGB) [place] [address] [phone] Comp Metabolic 12/21/2018 [facility] Sodium 142 Normal 135- [address] mmol/[place] [address] [phone] Potassium 4.1 mmol/L Normal 3.5-5.0 Chloride 106 mmol/L Normal 101-111 Co2 Carbon Dioxide 31 mmol/L Normal 22-32 Anion Gap 5 mmol/L Normal 2-11 Glucose 83 mg/dL Normal 70-100 Blood Urea Nitrogen 24 mg/dL Normal 6-24 Creatinine 1.07 mg/dL Normal 0.67-1.17 BUN/Creatinine Ratio 22.4 High 8-20 Calcium 9.4 mg/dL Normal 8.6-10.3 Total Protein 6.2 g/dL Low 6.4-8.9 Albumin 4.2 g/dL Normal 3.2-5.2 Globulin 2.0 g/dL Normal 2-4 Albumin/Globulin Ratio 2.1 Normal 1-3 Total Bilirubin 0.90 mg/dL Normal 0.2-1.0 Alkaline Phosphatase 68 U/L Normal 34-104 Alt 45 U/L Normal 7-52 Ast 23 U/L Normal 13-39 Egfr Non- 72.9 >60 Egfr 88.2 >60 6 Laboratory test 12/21/2018 [facility] C-Peptide <0.1 ng/mL Abnormal 1.1 - [address] [place] [address] [phone] Vitamin D Total 25(Oh) 41.7 ng/mL Normal 20-50 8 TSH (Thyroid Stim Horm) 1.82 mcIU/mL Normal 0.34-5.60 1 Desirable: <150 Borderline High: 150-199 High: 200-499 Very High: >500 2 Desirable: <200 Borderline High: 200-239 High: >239 3 Low: <40 Desirable: 40-60 High: >60 4 Desirable: <100 Near Optimal: 100-129 Borderline High: 130-159 High: 160-189 Very High: >189 5 Therapeutic target for the treatment of diabetes mellitus patients is <7% HBA1C, and in selective patients <6.0%. Please refer to [place] [employer] diabetic care guidelines for further information. 6 Because ethnic data is not always readily available, this report includes an eGFR for both -Americans and non- Americans. The National Kidney Disease Education Program (NKDEP) does not endorse the use of the MDRD equation for patients that are not between the ages of 18 and 70, are , have extremes of body size, muscle mass, or nutritional status, or are non- or non-. According to the National Kidney Foundation, irrespective of diagnosis, the stage of the disease is based on the level of kidney function: Stage Description GFR(mL/min/1.73 m(2)) 1 Kidney damage with normal or decreased GFR 90 2 Kidney damage with mild decrease in GFR 60-89 3 Moderate decrease in GFR 30-59 4 Severe decrease in GFR 15-29 5 Kidney failure <15 (or dialysis) 7 Test Performed by: [facility] [address] [id number] Morgue Keeper: Irsael Coburn M.D. Ph.D.; IA# [id number] 8 Total 25-Hydroxyvitamin D2 and D3 (25-OH-VitD) <10 ng/mL (severe deficiency) 10-19 ng/mL (mild to moderate deficiency) 20-50 ng/mL (optimum levels) 51-80 ng/mL (increased risk of hypercalciuria) >80 ng/mL (toxicity possible) Procedures Description No Information Available Medical Devices Description No Information Available Encounters Type Date Location Provider Dx Diagnosis Office Visit 01/12/2019 Kati Teague MD E11.65 Type 2 diabetes 8:00a [facility] mellitus with hyperglycemia Z79.4 buttermaker continuous churn (current) use of insulin Office Visit 12/07/2018 Kati Teague, E11.649 Type 2 diabetes 8:40a Endocrinology of [facility] mellitus with [facility] hypoglycemia without coma E11.65 Type 2 diabetes mellitus with hyperglycemia Z79.4 buttermaker continuous churn (current) use of insulin 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, in remission Assessments Date Code Description Provider 04/19/2019 E11.65 Type 2 diabetes mellitus with hyperglycemia Chas Teague MD 04/19/2019 Z79.4 longterm (current) use of insulin Chas Teague MD 04/19/2019 E78.5 Hyperlipidemia, unspecified Chas Teague MD 01/12/2019 E11.65 Type 2 diabetes mellitus with hyperglycemia Chas Teague MD 01/12/2019 Z79.4 buttermaker continuous churn (current) use of insulin Chas Teague MD 12/07/2018 E11.649 Type 2 diabetes mellitus with hypoglycemia without Chas Teague MD coma 12/07/2018 E11.65 Type 2 diabetes mellitus with hyperglycemia Chas Teague MD 12/07/2018 Z79.4 longterm (current) use of insulin Chas Teague MD 12/07/2018 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04/19/2019 - Chas Teague MDE11.65 Type 2 diabetes mellitus with hyperglycemiaNew Medication:Baqsimi One Pack 3 mg/Dose - hold on file, for severe hypoglycemiaFollow up:JulyInstructions:1. Use Humalog three times/day, as follows: - 4 units for small meals - 6 units for large meals - 0 units if you do not eat carbohydrates 2. Use Humalog for correction of high blood glucose, as follows: - CURRENT blood glucose - TARGET (120) blood glucose - divide the above number by SENSITIVITY (30) 3. Increase Lantus to 28 units. 4. Start V-Go 20 for now, although you may need V-Go 30 in the future. 5. Return for glucometer download 2 weeks after starting V-Go.Z79.4 longterm ( current) use of hitzumcE03.5 Hyperlipidemia, unspecified Functional Status Description No Information Available Mental Status Description No Information Available Referrals Description No Information Available
--- OUTSIDE RECORDS SUMMARY | 2019-06-12 10:46 | XMS REPORT | Continuity of Care Document ---
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 Tobacco Use Start: Unknown End: Patient is a former former 1 ppd x 25 Unknown smoker years, quit 08/06/2007 Recreational Drug Use Denies Drug Use Smoking Status Reviewed: 05/17/19 Patient is a former former 1 ppd x 25 smoker years, quit 08/06/2007 Exercise Type/Frequency Does not exercise Allergies, Adverse Reactions, Alerts Active Allergies Reaction Severity Comments Date Keflex rash 03/24/2018 Sulfa Antibiotics rash 03/24/2018 Medications Active Medications SIG Qnty Indications Ordering Date Provider V-Go 20 basal 0.83 units 90units E11.65 Chas Teague MD 05/23/2019 Kit per hr. mdd 56 Rosuvastatin 40mg daily 90tabs Chas Teague MD 05/17/2019 Calcium 40mg Tablets Lantus Solostar take 28 u at night 3ml Chas Teague MD [...] Test Strips needed. Strips Freestyle Lu 14 use at least 4 1units E11.649 Chas Teague MD 2018 Day/[place]/Flash times daily with Monitoring System sensor Device Freestyle Lu 14 place one sensor 2units E11.64Bogdan Teague MD 2018 Day/Sensor/Flash every 14 days Monitoring System Misc Pen [place] to be used once per 400units Chas Teague MD 10/25/2018 32G X 6 day with lantus mm Misc Thiamine HCL 1 by mouth every Unknown [...] 36 Xultophy start 20 units one 15ml E11.Elvia Teague MD 12/07/2018 - daily, increase by [...] Date Facility Test Result H/L Range Note Comp Metabolic 05/17/2019 [facility] Sodium 138 mmol/L Normal 135-145 Panel [address] [place] [address] [phone] Potassium 4.4 mmol/L Normal 3.5-5.0 Chloride 104 mmol/L Normal 101-111 Co2 Carbon Dioxide 29 mmol/L Normal 22-32 Anion Gap 5 mmol/L Normal 2-11 Glucose 212 mg/dL High 70-100 Blood Urea Nitrogen 20 mg/dL Normal 6-24 Creatinine 1.16 mg/dL Normal 0.67-1.17 BUN/Creatinine Ratio 17.2 Normal 8-20 Calcium 9.3 mg/dL Normal 8.6-10.3 Total Protein 6.4 g/dL Normal 6.4-8.9 Albumin 4.1 g/dL Normal 3.2-5.2 Globulin 2.3 g/dL Normal 2-4 Albumin/Globulin Ratio 1.8 Normal 1-3 Total Bilirubin 0.70 mg/dL Normal 0.2-1.0 Alkaline Phosphatase 71 U/L Normal 34-104 Alt 35 U/L Normal 7-52 Ast 25 U/L Normal 13-39 Egfr Non- 66.4 >60 Egfr 80.3 >60 1 Lipid Profile 05/17/2019 [facility] Triglycerides 49 mg/dL 2 (Trig/Chol/HDL) [address] [place] [address] [phone] Cholesterol 166 mg/dL 3 HDL Cholesterol 55.0 mg/dL 4 LDL Cholesterol 101 mg/dL 5 Lipid Profile 12/21/2018 [facility] Triglycerides 67 mg/dL 6 (Trig/Chol/HDL) [address] [place] [address] [phone] Cholesterol 197 mg/dL 7 HDL Cholesterol 47.9 mg/dL 8 LDL Cholesterol 136 mg/dL 9 Laboratory test 12/21/2018 [facility] Hemoglobin A1c 10.3 % High 4.0-5.6 10 finding 101 (Glyco HGB) [place] [address] [phone] Comp Metabolic 12/21/2018 [facility] Sodium 142 Normal 135- [address] mmol/[place] [address] [phone] Potassium 4.1 mmol/L Normal 3.5-5.0 Chloride 106 [...] Egfr Non- 72.9 >60 Egfr 88.2 >60 11 Laboratory test 12/21/2018 [facility] C-Peptide <0.1 ng/mL Abnormal 1.1 - [address] [place] [address] [phone] Vitamin D Total 25(Oh) 41.7 ng/mL Normal 20-50 13 TSH (Thyroid Stim Horm) 1.82 mcIU/mL Normal 0.34-5.60 1 Because ethnic data is not always readily [...] 15-29 5 Kidney failure <15 (or dialysis) 2 Desirable: <150 Borderline High: 150-199 High: 200-499 Very High: >500 3 Desirable: <200 Borderline High: 200-239 High: >239 4 Low: <40 Desirable: 40-60 High: >60 5 Desirable: <100 Near Optimal: 100-129 Borderline High: 130-159 High: 160-189 Very High: >189 6 Desirable: <150 Borderline High: 150-199 High: 200-499 Very High: >500 7 Desirable: <200 Borderline High: 200-239 High: >239 8 Low: <40 Desirable: 40-60 High: >60 9 Desirable: <100 Near Optimal: 100-129 Borderline High: 130-159 High: 160-189 Very High: >189 10 Therapeutic target for the treatment of diabetes mellitus patients is <7% HBA1C, and in selective patients <6.0%. Please refer to [place] [employer] diabetic care guidelines for further information. 11 Because ethnic data is not always readily [...] 15-29 5 Kidney failure <15 (or dialysis) 12 Test Performed by: [facility] [address] [place] [address] Rush Seater: Israel Coburn M.D. 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 E78.5 Hyperlipidemia, unspecified Office Visit 01/12/2019 Kati Teague, E11.65 Type 2 diabetes 8:00a Endocrinology of mellitus with [facility] hyperglycemia Z79.4 half-way (current) use of insulin Office Visit 12/07/2018 [place] Teague E11.649 Type 2 diabetes 8:40a Endocrinology of mellitus with [facility] hypoglycemia without coma E11.65 Type 2 diabetes mellitus with hyperglycemia Z79.4 half-way (current) use of insulin 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, in remission Assessments Date Code Description Provider 04/19/2019 E11.65 Type 2 diabetes mellitus with hyperglycemia Chas Teague MD 04/19/2019 Z79.4 half-way (current) use of insulin Chas Teague MD 04/19/2019 E78.5 Hyperlipidemia, unspecified Chas Teague MD 01/12/2019 E11.65 Type 2 diabetes mellitus with hyperglycemia Chas Teague MD 01/12/2019 Z79.4 half-way (current) use of insulin Chas Teague MD 12/07/2018 E11.649 Type 2 diabetes mellitus with hypoglycemia without Chas Teague MD coma 12/07/2018 E11.65 Type 2 diabetes mellitus with hyperglycemia Chas Teague MD 12/07/2018 Z79.4 half-way (current) use of insulin Chas Teague MD 12/07/2018 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 and [facility]ology of [facility]08/16/2019 8:00 am - Chas Teague MD at [facility] and [facility]ocrinology of [facility]04/19/2019 - Chas Teague MDE11.65 Type 2 diabetes [...] follows: - CURRENT blood glucose - TARGET ( 120) blood glucose - divide the above number by SENSITIVITY (30) 3. Increase Lantus to 28 units. 4. Start V-Go 20 for now, although you may need V-Go 30 in the future. 5. Return for glucometer download 2 weeks after starting V-Go.Z79.4 predatory animal exterminator (current) use of pckhqlyC30.5 Hyperlipidemia, unspecified Functional Status Description No Information Available Mental Status Description No Information Available Referrals Description No Information Available
[2019-06-12 10:54] LABS: ABS Lymphocytes 1.8 10^3/ul (1.0-4.8); ABS Monocytes 1.2 10^3/ul (0-0.8); Eosinophil % 0.1 %; Hematocrit 51 % (42-52); Hemoglobin 17.8 g/dL (14.0-18.0); Lymphocyte % 10.6 %; Mean Corpuscular HGB Conc 35 g/dL (31-36); Mean Corpuscular Hemoglobin 32 pg (27-31); Mean Corpuscular Volume 89 fL (80-94); Platelet Count 280 10^3/uL (150-450); Red Blood Count 5.65 10^6 /uL (4.18-5.48); Red Cell Distribution Width 13 % (10-15); White Blood Count 17.1 10^3/uL (3.5-10.8)
[2019-06-12 11:15] LABS: Albumin 4.6 g/dL (3.2-5.2); Albumin/Globulin Ratio 1.4 (1-3); BUN/Creatinine Ratio 17.1 (8-20); Calcium 9.9 mg/dL (8.6-10.3); EGFR African American 64.6 (>60); EGFR Non-African American 53.4 (>60); Globulin 3.2 g/dL (2-4); Potassium 4.6 mmol/L (3.5-5.0); Total Protein 7.8 g/dL (6.4-8.9)
[2019-06-12] MEDS ORDERED: Insulin Infusion 100unit/100mL 100 UNIT/100 ML BAG IV SCH ×2 (11:17→14:20)
[2019-06-12 11:25] LABS: Urine Appearance Clear; Urine Bilirubin Negative (Negative); Urine Blood Negative (Negative); Urine Color Yellow; Urine Glucose 3+(>=500 mg/dL) (Negative); Urine Ketones 2+ (Negative); Urine Nitrite Negative (Negative); Urine Protein Negative (Negative); Urine Specific Gravity 1.028 (1.010-1.030); Urine Urobilinogen Negative (Negative)
[2019-06-12] MEDS ORDERED: Vancomycin(*) 1,500 MG in NS 0.9% 250 ML* 250 ML IVPB ONE (11:57)
[2019-06-12] MEDS ORDERED: Piperacillin/Tazobac ADVAN(*) 3.375 GM in NS 0.9% 100 ML* 100 ML IVPB ONE (11:57)
[2019-06-12] MEDS ORDERED: NS 0.9% 250 ML* 250 ML ONE (12:39)
[2019-06-12] MEDS ORDERED: Ondansetron INJ* 2 MG/ML VIAL IV PRN (13:04)
[2019-06-12] MEDS ORDERED: NS 0.9% 1000 ML** 1,000 ML IV SCH (13:30)
[2019-06-12] MEDS ORDERED: Lactated Ringers 1000 ML Bag* 1,000 ML IV SCH ×2 (14:00)
[2019-06-12 14:53] LABS: BUN/Creatinine Ratio 17.4 (8-20); Blood Urea Nitrogen 23 mg/dL (6-24); Calcium 8.2 mg/dL (8.6-10.3); Chloride 105 mmol/L (101-111); EGFR African American 69.2 (>60); EGFR Non-African American 57.2 (>60); Glucose 294 mg/dL (70-100); Sodium 138 mmol/L (135-145)
[2019-06-12 15:01] LABS: Anion Gap 21 mmol/L (2-11); CO2 Carbon Dioxide 12 mmol/L (22-32)
[2019-06-12] MEDS ORDERED: D5NS 0.9% 1000 ML BAG* 1,000 ML IV SCH (17:00)
[2019-06-12 18:14] LABS: Calcium 8.1 mg/dL (8.6-10.3); Potassium 4.2 mmol/L (3.5-5.0)
--- NOTE | 2019-06-12 18:18 | HP ---
H&P (Free Text) History and Physical: HISTORY AND PHYSICAL ADMISSION DATE: 06/12/19 ADMITTING PHYSICIAN: Dr Jovan Bah CHIEF COMPLAINT: Nausea, vomiting, fatigue, dehydration since 06/11/19 HPI: 53M with known PMH of DM (diagnosed 2007, labile, on insulin), liver abscess AND DKA (02/2018), history of etoh abuse (last drink 02/2018), intermittent diarrhea x 6 months, and HLD, presents with complaints of nausea, vomiting, fatigue, and dehydration since 06/11/19. He notes intermittent diarrhea over the past 6 months, after eating, has not followed up with anyone regarding that yet. He sees Dr Teague, saw him last month. States his BGs are difficult to control at home, they can be 400 and then 50. He states he takes his insulin as directed. He denies feeling sick prior to yesterday and denies sick contacts. He does work at a [employer] but denies sick employees. On admission his BG was 481, anion gap 24, creatinine 1.40, tachycardic into 120's , SBP 120's. He was given 2L IVF and started on insulin drip. ROS: negative except for pertinent positives mentioned above PMHx: DM, liver abscess, intermittent diarrhea x 6 months, DKA, and previous etoh abuse, HLD PSHx: unknown Family History: Mother is alive and well, father passed years ago. Unknown medical history. Sister and brother have CAD, brother has a stent Social History: Sober since 02/2018, quit smoking in 2007, denies drug use. Lives with roommate. Works at [employer] Allergies: cephalexin, sulfa Home Medications: Aspirin EC TAB* [Ecotrin EC Low Dose 81 MG*] 81 mg PO DAILY 03/11/18 [History Confirmed 06/12/19] Multivitamins/Minerals TAB* [Theragran/minerals TAB*] 1 tab PO DAILY tab [Rx Confirmed 06/12/19] Acetaminophen TAB* [Tylenol TAB*] 650 mg PO Q4H PRN 06/12/19 [History Confirmed 06/12/19] Insulin ISOPH/REG 70/30 (*) [HumuLIN 70/30 units/ml 10 ml VIAL (*)] 0 units SUBCUT .SEE INSTRUCTIONS 06/12/19 [History Confirmed 06/12/19] Rosuvastatin (NF) [Crestor (NF)] 40 mg PO BEDTIME 06/12/19 [History Confirmed ] Thiamine TAB* [Vitamin B-1 TAB*] 100 mg PO DAILY 06/12/19 [History Confirmed ] Tele: sinus tach Vitals: Vital Signs 06/12/19 06/12/19 06/12/19 10:43 10:47 11:00 Temperature 98.4 F Pulse Rate 120 122 121 Respiratory 18 Rate Blood Pressure 126/78 (mmHg) O2 Sat by Pulse 95 97 96 Oximetry 06/12/19 06/12/19 06/12/19 12:00 13:00 13:28 Temperature 96.5 F Pulse Rate 123 124 124 Respiratory 15 Rate Blood Pressure 127/71 (mmHg) O2 Sat by Pulse 97 97 97 Oximetry 06/12/19 06/12/19 06/12/19 13:37 13:52 14:00 Temperature Pulse Rate 123 123 122 Respiratory 13 16 Rate Blood Pressure 125/70 127/71 125/72 (mmHg) O2 Sat by Pulse 97 98 97 Oximetry 06/12/19 06/12/19 06/12/19 14:02 14:15 14:30 Temperature 98.6 F Pulse Rate 120 117 118 Respiratory 18 26 20 Rate Blood Pressure 125/70 114/68 108/73 (mmHg) O2 Sat by Pulse 96 97 97 Oximetry 06/12/19 06/12/19 06/12/19 14:45 15:00 16:00 Temperature Pulse Rate 118 115 110 Respiratory 22 23 24 Rate Blood Pressure 109/62 112/64 107/60 (mmHg) O2 Sat by Pulse 96 96 97 Oximetry 06/12/19 06/12/19 16:38 17:00 Temperature 99.5 F Pulse Rate 103 Respiratory 25 Rate Blood Pressure 91/56 (mmHg) O2 Sat by Pulse 95 Oximetry O2: RA Infusions: Insulin drip Current Medications: Aspirin (Aspirin Ec Tab*) 81 mg PO DAILY [facility]INA Atorvastatin Calcium (Lipitor*) 80 mg PO BEDTIME JINA Lactated Ringer's (Lactated Ringers 1000 Ml Bag*) 1,000 mls @ 1,000 mls/hr IV .BOLUS JINA Last Admin: 06/12/19 14:04 Dose: 1,000 mls/hr Insulin Human Regular (Insulin Regular Iv Infusion 1 Unit/Ml) 100 unit in 100 mls @ 7.258 mls/hr IV PER RATE JINA; Protocol Dextrose/Sodium Chloride (D5ns 0.9% 1000 Ml Bag*) 1,000 mls @ 125 mls/hr IV PER RATE JINA Last Admin: 06/12/19 16:38 Dose: 125 mls/hr Multivitamins/Minerals (Theragran/Minerals Tab*) 1 tab PO DAILY [facility] Ondansetron HCl (Zofran Inj*) 4 mg IV Q6H PRN PRN Reason: NAUSEA Last Admin: 06/12/19 16:25 Dose: 4 mg Thiamine HCl (Vitamin B-1 Tab*) 100 mg PO DAILY [facility] Physical Exam: Constitutional: awake, alert, no distress, no diaphoresis, appears fatigued Head: normocephalic, atraumatic Eyes: no pallor, no icterus ENT: dry mucous membranes Neck: soft, supple, no jvd, no stridor CVS: normal rate, tachycardic, no murmur Chest/Resp: bilateral air entry, no rhales, no wheeze, no rhonchi, no acc muscle use Abdomen/GI: soft, slightly tender to light palpation, but he thinks it is from vomiting, nondistended, BS+ Ext/Msk: warm, pulses+, no edema Skin: intact, warm Neuro: awake, alert, orientedx3, moving all extremities, no gross focal deficit Psych: normal affect Labs: Laboratory Results - last 24 hr 06/12/19 06/12/19 06/12/19 10:14 10:14 10:39 WBC 17.1 H RBC 5.65 H Hgb 17.8 Hct 51 MCV 89 MCH 32 H MCHC 35 RDW 13 Plt Count 280 MPV 8.0 Neut % (Auto) 82.0 Lymph % (Auto) 10.6 [place] % (Auto) 7.2 Eos % (Auto) 0.1 Baso % (Auto) 0.1 Absolute Neuts (auto) 14.0 H Absolute Lymphs (auto) 1.8 Absolute Monos (auto) 1.2 H Absolute Eos (auto) 0.0 Absolute Basos (auto) 0.0 Absolute Nucleated RBC 0.0 Nucleated RBC % 0.0 VBG pH 7.17 L VBG pCO2 39 L VBG pO2 43.0 VBG HCO3 13.6 L VBG O2 Saturation 73.6 VBG Base Excess -13.6 L Sodium Potassium Chloride Carbon Dioxide Anion Gap BUN Creatinine Est GFR ( Amer) Est GFR (Non-Af Amer) BUN/Creatinine Ratio Glucose POC Glucose (mg/dL) Lactic Acid Calcium Total Bilirubin AST ALT Alkaline Phosphatase Total Protein Albumin Globulin Albumin/Globulin Ratio Urine Color Yellow Urine Appearance Clear Urine pH 5.0 Ur Specific [place] 1.028 Urine Protein Negative Urine Ketones 2+ A Urine Blood Negative Urine Nitrate Negative Urine Bilirubin Negative Urine Urobilinogen Negative Ur Leukocyte Esterase Negative Urine Glucose 3+(>=500 mg/dl) A 06/12/19 06/12/19 06/12/19 10:39 10:39 14:05 WBC RBC Hgb Hct MCV MCH MCHC RDW Plt Count MPV Neut % (Auto) Lymph % (Auto) [place] % (Auto) Eos % (Auto) Baso % (Auto) Absolute Neuts (auto) Absolute Lymphs (auto) Absolute Monos (auto) Absolute Eos (auto) Absolute Basos (auto) Absolute Nucleated RBC Nucleated RBC % VBG pH VBG pCO2 VBG pO2 VBG HCO3 VBG O2 Saturation VBG Base Excess Sodium 135 Potassium 4.6 Chloride 95 L Carbon Dioxide 16 L Anion Gap 24 H BUN 24 Creatinine 1.40 H Est GFR ( Amer) 64.6 Est GFR (Non-Af Amer) 53.4 BUN/Creatinine Ratio 17.1 Glucose 481 H POC Glucose (mg/dL) 313 H Lactic Acid 2.7 H* Calcium 9.9 Total Bilirubin 1.00 AST 20 ALT 30 Alkaline Phosphatase 86 Total Protein 7.8 Albumin 4.6 Globulin 3.2 Albumin/Globulin Ratio 1.4 Urine Color Urine Appearance Urine pH Ur Specific [place] Urine Protein Urine Ketones Urine Blood Urine Nitrate Urine Bilirubin Urine Urobilinogen Ur Leukocyte Esterase Urine Glucose 06/12/19 06/12/19 06/12/19 14:28 14:30 14:42 WBC RBC Hgb Hct MCV MCH MCHC RDW Plt Count MPV Neut % (Auto) Lymph % (Auto) [place] % (Auto) Eos % (Auto) Baso % (Auto) Absolute Neuts (auto) Absolute Lymphs (auto) Absolute Monos (auto) Absolute Eos (auto) Absolute Basos (auto) Absolute Nucleated RBC Nucleated RBC % VBG pH VBG pCO2 VBG pO2 VBG HCO3 VBG O2 Saturation VBG Base Excess Sodium 138 Potassium TNP 4.2 Chloride 105 Carbon Dioxide 12 L* Anion Gap 21 H BUN 23 Creatinine 1.32 H Est GFR ( Amer) 69.2 Est GFR (Non-Af Amer) 57.2 BUN/Creatinine Ratio 17.4 Glucose 294 H POC Glucose (mg/dL) Lactic Acid 1.4 Calcium 8.2 L Total Bilirubin AST ALT Alkaline Phosphatase Total Protein Albumin Globulin Albumin/Globulin Ratio Urine Color Urine Appearance Urine pH Ur Specific [place] Urine Protein Urine Ketones Urine Blood Urine Nitrate Urine Bilirubin Urine Urobilinogen Ur Leukocyte Esterase Urine Glucose 06/12/19 06/12/19 15:07 16:23 WBC RBC Hgb Hct MCV MCH MCHC RDW Plt Count MPV Neut % (Auto) Lymph % (Auto) [place] % (Auto) Eos % (Auto) Baso % (Auto) Absolute Neuts (auto) Absolute Lymphs (auto) Absolute Monos (auto) Absolute Eos (auto) Absolute Basos (auto) Absolute Nucleated RBC Nucleated RBC % VBG pH VBG pCO2 VBG pO2 VBG HCO3 VBG O2 Saturation VBG Base Excess Sodium Potassium Chloride Carbon Dioxide Anion Gap BUN Creatinine Est GFR ( Amer) Est GFR (Non-Af Amer) BUN/Creatinine Ratio Glucose POC Glucose (mg/dL) 255 H 193 H Lactic Acid Calcium Total Bilirubin AST ALT Alkaline Phosphatase Total Protein Albumin Globulin Albumin/Globulin Ratio Urine Color Urine Appearance Urine pH Ur Specific [place] Urine Protein Urine Ketones Urine Blood Urine Nitrate Urine Bilirubin Urine Urobilinogen Ur Leukocyte Esterase Urine Glucose Imagin/20 CXR- clear Assessment: 53M with known medical history of DM, HLD, liver abscess/DKA 02/2018 , and previous etoh abuse, presents on 06/12/19 with 1 day of nausea, vomiting, fatigue, dehydration. BG 481 on admission, anion gap 24. Given 2L IVF and started on insulin drip. Admitted to ICU. 1. DKA 2. Tachycardia 3. HLD Plan: Neuro- - No active issues -Delirium prec; avoid BDZ CVS- - Tachycardic on admission, slowly improving. Likely d/t DKA/dehydration - BP has been WNL -Maintain MAP>65 - Continue home statin Resp- - No active issues -Goal sat>92% -Aspiration prec, Pulmonary Toilet ID- - Afebrile, WBC 17.1. Likely reactive from DKA, continue to monitor. GI- -Nutrition: ok to start DM diet this evening -GI prophylaxis not indicated Renal- -strict I/O, replete to keep K>4, Mg>2 Heme- - SCDs for DVT prophylaxis Endo- - DKA. started on insulin drip and IVF. BGs coming down quickly. Significant lab delays with BMP. Stopped insulin gtt for now since BGs 160's. Continue D5NS @ 125. Ok to start PO diet tonight Musculsk- pressure ulcer prophylaxis. OOB as tolerated Wounds- none Nutrition- DM diet DVT prophylaxis:scds Disposition: Admit to ICU; Expected LOS>2 midnights; Patient requires Critical Care/ICU for DKA Patient Clinical Status: stable Code Status: full Total Critical Care time is 60 minutes
[2019-06-12 18:20] LABS: BUN/Creatinine Ratio 15.7 (8-20); EGFR African American 72.3 (>60); EGFR Non-African American 59.8 (>60)
[2019-06-12] MEDS: Atorvastatin* 80 MG TAB PO SCH (21:04)
[2019-06-12 22:31] LABS: BUN/Creatinine Ratio 16.5 (8-20); EGFR African American 72.3 (>60); EGFR Non-African American 59.8 (>60); Potassium 3.8 mmol/L (3.5-5.0)
[2019-06-13] MEDS ORDERED: D5NS 0.9% 1000 ML BAG* 1,000 ML IV SCH ×3 (00:33→04:00)
[2019-06-13] MEDS ORDERED: Insulin GLARGINE(*) 1 UNITS UNIT ONE (02:19)
[2019-06-13] MEDS: Insulin GLARGINE(*) 1 UNITS UNIT SUBCUT SCH ×2 (02:20→21:37)
[2019-06-13 02:36] LABS: BUN/Creatinine Ratio 14.8 (8-20); Calcium 8.3 mg/dL (8.6-10.3); EGFR African American 75.8 (>60); EGFR Non-African American 62.6 (>60); Potassium 3.5 mmol/L (3.5-5.0)
[2019-06-13] MEDS ORDERED: NS 0.9% 1000 ML** 1,000 ML IV SCH (04:30)
[2019-06-13] MEDS ORDERED: Insulin GLARGINE(*) 1 UNITS UNIT SUBCUT ONE (05:58)
--- NOTE | 2019-06-13 06:00 | PN ---
Progress Note - Progress Note Date of Service: 06/13/19 Note: Transitioned off of insulin gtt Total of 30 units lantus given (15 U then 5 U) Will need sliding scale coverage when ready to eat.
[2019-06-13 06:52] LABS: Hematocrit 42 % (42-52); Hemoglobin 14.3 g/dL (14.0-18.0); Mean Corpuscular HGB Conc 34 g/dL (31-36); Mean Corpuscular Hemoglobin 31 pg (27-31); Mean Corpuscular Volume 89 fL (80-94); Mean Platelet Volume 7.6 fL (7.4-10.4); Platelet Count 189 10^3/uL (150-450); Red Blood Count 4.67 10^6 /uL (4.18-5.48); Red Cell Distribution Width 13 % (10-15); White Blood Count 11.4 10^3/uL (3.5-10.8)
[2019-06-13] MEDS ORDERED: Dextrose 50% Syringe 50 ML* 25 GM/50 ML SYRINGE IV PUSH PRN (07:13)
[2019-06-13 07:20] LABS: EGFR African American 82.8 (>60); EGFR Non-African American 68.4 (>60); Potassium 3.9 mmol/L (3.5-5.0)
[2019-06-13] MEDS ORDERED: Insulin LISPRO* 1 UNITS UNIT SUBCUT SCH ×2 (07:30→09:15)
[2019-06-13] MEDS: Thiamine TAB* 100 MG TAB PO SCH (08:07)
[2019-06-13] MEDS: Aspirin EC TAB* 81 MG TAB.EC PO SCH (08:07)
[2019-06-13] MEDS: Multivitamins/Minerals TAB PO SCH (08:07)
--- NOTE | 2019-06-13 10:17 | PN ---
Date of Service: 06/13/19 Critical Care Services: Overnight transitioned to long acting insulin, tolerating diet, feeling much better this morning Vital Signs: Temp Pulse Resp BP SpO2 FiO2 98.4 F 96 22 103/53 95 06/13/19 09:10 06/13/19 09:00 06/13/19 09:07 06/13/19 09:00 06/13/19 09:00 Physical Exam: Gen: Awake, alert, laying in bed in NAD HEENT: Atraumatic, normocephalic, anicteric sclera, neck supple Lungs: clear to auscultation bilaterally Cardiac: normal rate, s1s2 Abdomen: soft, nondistended, slightly tender to deep palpation Extremities: no edema, skin is warm and dry Neuro: Awake, alert, oriented x 3. PERRL 4mm, EOMI, strength 5/5 all extremities , no gross focal deficit. Fluid Balance (Past 24 Hours): I= O= Net Intake & Output 06/11/19 06/12/19 06/13/19 06/14/19 06:59 06:59 06:59 06:59 Intake Total 5279.1 611 Output Total 700 0 Balance 4579.1 611 Weight 176 lb 5.917 oz Intake: IV Fluids 4376 131 ABX - VANCOMYCIN 208 D5W NS (0.9%) 1536 NS (0.9%) 532 131 Medicated IV 53.1 CC - Insulin 53.1 Oral 850 480 Output: Urine 700 0 Other: # Voids 1 Labs: Laboratory Results - last 24 hr 06/12/19 06/12/19 06/12/19 10:14 10:14 10:39 WBC 17.1 H RBC 5.65 H Hgb 17.8 Hct 51 MCV 89 MCH 32 H MCHC 35 RDW 13 Plt Count 280 MPV 8.0 Neut % (Auto) 82.0 Lymph % (Auto) 10.6 [place] % (Auto) 7.2 Eos % (Auto) 0.1 Baso % (Auto) 0.1 Absolute Neuts (auto) 14.0 H Absolute Lymphs (auto) 1.8 Absolute Monos (auto) 1.2 H Absolute Eos (auto) 0.0 Absolute Basos (auto) 0.0 Absolute Nucleated RBC 0.0 Nucleated RBC % 0.0 VBG pH 7.17 L VBG pCO2 39 L VBG pO2 43.0 VBG HCO3 13.6 L VBG O2 Saturation 73.6 VBG Base Excess -13.6 L Sodium Potassium Chloride Carbon Dioxide Anion Gap BUN Creatinine Est GFR ( Amer) Est GFR (Non-Af Amer) BUN/Creatinine Ratio Glucose POC Glucose (mg/dL) Lactic Acid Calcium Total Bilirubin AST ALT Alkaline Phosphatase Total Protein Albumin Globulin Albumin/Globulin Ratio Urine Color Yellow Urine Appearance Clear Urine pH 5.0 Ur Specific [place] 1.028 Urine Protein Negative Urine Ketones 2+ A Urine Blood Negative Urine Nitrate Negative Urine Bilirubin Negative Urine Urobilinogen Negative Ur Leukocyte Esterase Negative Urine Glucose 3+(>=500 mg/dl) A 06/12/19 06/12/19 06/12/19 10:39 10:39 14:05 WBC RBC Hgb Hct MCV MCH MCHC RDW Plt Count MPV Neut % (Auto) Lymph % (Auto) [place] % (Auto) Eos % (Auto) Baso % (Auto) Absolute Neuts (auto) Absolute Lymphs (auto) Absolute Monos (auto) Absolute Eos (auto) Absolute Basos (auto) Absolute Nucleated RBC Nucleated RBC % VBG pH VBG pCO2 VBG pO2 VBG HCO3 VBG O2 Saturation VBG Base Excess Sodium 135 Potassium 4.6 Chloride 95 L Carbon Dioxide 16 L Anion Gap 24 H BUN 24 Creatinine 1.40 H Est GFR ( Amer) 64.6 Est GFR (Non-Af Amer) 53.4 BUN/Creatinine Ratio 17.1 Glucose 481 H POC Glucose (mg/dL) 313 H Lactic Acid 2.7 H* Calcium 9.9 Total Bilirubin 1.00 AST 20 ALT 30 Alkaline Phosphatase 86 Total Protein 7.8 Albumin 4.6 Globulin 3.2 Albumin/Globulin Ratio 1.4 Urine Color Urine Appearance Urine pH Ur Specific [place] Urine Protein Urine Ketones Urine Blood Urine Nitrate Urine Bilirubin Urine Urobilinogen Ur Leukocyte Esterase Urine Glucose 06/12/19 06/12/19 06/12/19 14:28 14:30 14:42 WBC RBC Hgb Hct MCV MCH MCHC RDW Plt Count MPV Neut % (Auto) Lymph % (Auto) [place] % (Auto) Eos % (Auto) Baso % (Auto) Absolute Neuts (auto) Absolute Lymphs (auto) Absolute Monos (auto) Absolute Eos (auto) Absolute Basos (auto) Absolute Nucleated RBC Nucleated RBC % VBG pH VBG pCO2 VBG pO2 VBG HCO3 VBG O2 Saturation VBG Base Excess Sodium 138 Potassium TNP 4.2 Chloride 105 Carbon Dioxide 12 L* Anion Gap 21 H BUN 23 Creatinine 1.32 H Est GFR ( Amer) 69.2 Est GFR (Non-Af Amer) 57.2 BUN/Creatinine Ratio 17.4 Glucose 294 H POC Glucose (mg/dL) Lactic Acid 1.4 Calcium 8.2 L Total Bilirubin AST ALT Alkaline Phosphatase Total Protein Albumin Globulin Albumin/Globulin Ratio Urine Color Urine Appearance Urine pH Ur Specific [place] Urine Protein Urine Ketones Urine Blood Urine Nitrate Urine Bilirubin Urine Urobilinogen Ur Leukocyte Esterase Urine Glucose 06/12/19 06/12/19 06/12/19 14:42 15:07 16:23 WBC RBC Hgb Hct MCV MCH MCHC RDW Plt Count MPV Neut % (Auto) Lymph % (Auto) [place] % (Auto) Eos % (Auto) Baso % (Auto) Absolute Neuts (auto) Absolute Lymphs (auto) Absolute Monos (auto) Absolute Eos (auto) Absolute Basos (auto) Absolute Nucleated RBC Nucleated RBC % VBG pH VBG pCO2 VBG pO2 VBG HCO3 VBG O2 Saturation VBG Base Excess Sodium 139 Potassium 4.2 Chloride 107 Carbon Dioxide 16 L Anion Gap 16 H BUN 20 Creatinine 1.27 H Est GFR ( Amer) 72.3 Est GFR (Non-Af Amer) 59.8 BUN/Creatinine Ratio 15.7 Glucose 178 H POC Glucose (mg/dL) 255 H 193 H Lactic Acid Calcium 8.1 L Total Bilirubin AST ALT Alkaline Phosphatase Total Protein Albumin Globulin Albumin/Globulin Ratio Urine Color Urine Appearance Urine pH Ur Specific [place] Urine Protein Urine Ketones Urine Blood Urine Nitrate Urine Bilirubin Urine Urobilinogen Ur Leukocyte Esterase Urine Glucose 06/12/19 06/12/19 06/12/19 17:12 18:18 19:27 WBC RBC Hgb Hct MCV MCH MCHC RDW Plt Count MPV Neut % (Auto) Lymph % (Auto) [place] % (Auto) Eos % (Auto) Baso % (Auto) Absolute Neuts (auto) Absolute Lymphs (auto) Absolute Monos (auto) Absolute Eos (auto) Absolute Basos (auto) Absolute Nucleated RBC Nucleated RBC % VBG pH VBG pCO2 VBG pO2 VBG HCO3 VBG O2 Saturation VBG Base Excess Sodium Potassium Chloride Carbon Dioxide Anion Gap BUN Creatinine Est GFR ( Amer) Est GFR (Non-Af Amer) BUN/Creatinine Ratio Glucose POC Glucose (mg/dL) 169 H 190 H 337 H Lactic Acid Calcium Total Bilirubin AST ALT Alkaline Phosphatase Total Protein Albumin Globulin Albumin/Globulin Ratio Urine Color Urine Appearance Urine pH Ur Specific [place] Urine Protein Urine Ketones Urine Blood Urine Nitrate Urine Bilirubin Urine Urobilinogen Ur Leukocyte Esterase Urine Glucose 06/12/19 06/12/19 06/12/19 20:48 22:02 22:05 WBC RBC Hgb Hct MCV MCH MCHC RDW Plt Count MPV Neut % (Auto) Lymph % (Auto) [place] % (Auto) Eos % (Auto) Baso % (Auto) Absolute Neuts (auto) Absolute Lymphs (auto) Absolute Monos (auto) Absolute Eos (auto) Absolute Basos (auto) Absolute Nucleated RBC Nucleated RBC % VBG pH VBG pCO2 VBG pO2 VBG HCO3 VBG O2 Saturation VBG Base Excess Sodium 135 Potassium 3.8 Chloride 106 Carbon Dioxide 22 Anion Gap 7 BUN 21 Creatinine 1.27 H Est GFR ( Amer) 72.3 Est GFR (Non-Af Amer) 59.8 BUN/Creatinine Ratio 16.5 Glucose 285 H POC Glucose (mg/dL) 357 H 297 H Lactic Acid Calcium 8.0 L Total Bilirubin AST ALT Alkaline Phosphatase Total Protein Albumin Globulin Albumin/Globulin Ratio Urine Color Urine Appearance Urine pH Ur Specific [place] Urine Protein Urine Ketones Urine Blood Urine Nitrate Urine Bilirubin Urine Urobilinogen Ur Leukocyte Esterase Urine Glucose 06/12/19 06/13/19 06/13/19 23:00 00:26 01:17 WBC RBC Hgb Hct MCV MCH MCHC RDW Plt Count MPV Neut % (Auto) Lymph % (Auto) [place] % (Auto) Eos % (Auto) Baso % (Auto) Absolute Neuts (auto) Absolute Lymphs (auto) Absolute Monos (auto) Absolute Eos (auto) Absolute Basos (auto) Absolute Nucleated RBC Nucleated RBC % VBG pH VBG pCO2 VBG pO2 VBG HCO3 VBG O2 Saturation VBG Base Excess Sodium Potassium Chloride Carbon Dioxide Anion Gap BUN Creatinine Est GFR ( Amer) Est GFR (Non-Af Amer) BUN/Creatinine Ratio Glucose POC Glucose (mg/dL) 245 H 169 H 149 H Lactic Acid Calcium Total Bilirubin AST ALT Alkaline Phosphatase Total Protein Albumin Globulin Albumin/Globulin Ratio Urine Color Urine Appearance Urine pH Ur Specific [place] Urine Protein Urine Ketones Urine Blood Urine Nitrate Urine Bilirubin Urine Urobilinogen Ur Leukocyte Esterase Urine Glucose 06/13/19 06/13/19 06/13/19 02:04 02:12 03:11 WBC RBC Hgb Hct MCV MCH MCHC RDW Plt Count MPV Neut % (Auto) Lymph % (Auto) [place] % (Auto) Eos % (Auto) Baso % (Auto) Absolute Neuts (auto) Absolute Lymphs (auto) Absolute Monos (auto) Absolute Eos (auto) Absolute Basos (auto) Absolute Nucleated RBC Nucleated RBC % VBG pH VBG pCO2 VBG pO2 VBG HCO3 VBG O2 Saturation VBG Base Excess Sodium 138 Potassium 3.5 Chloride 108 Carbon Dioxide 25 Anion Gap 5 BUN 18 Creatinine 1.22 H Est GFR ( Amer) 75.8 Est GFR (Non-Af Amer) 62.6 BUN/Creatinine Ratio 14.8 Glucose 115 H POC Glucose (mg/dL) 124 H 97 Lactic Acid Calcium 8.3 L Total Bilirubin AST ALT Alkaline Phosphatase Total Protein Albumin Globulin Albumin/Globulin Ratio Urine Color Urine Appearance Urine pH Ur Specific [place] Urine Protein Urine Ketones Urine Blood Urine Nitrate Urine Bilirubin Urine Urobilinogen Ur Leukocyte Esterase Urine Glucose 06/13/19 06/13/19 06/13/19 04:09 05:06 05:48 WBC RBC Hgb Hct MCV MCH MCHC RDW Plt Count MPV Neut % (Auto) Lymph % (Auto) [place] % (Auto) Eos % (Auto) Baso % (Auto) Absolute Neuts (auto) Absolute Lymphs (auto) Absolute Monos (auto) Absolute Eos (auto) Absolute Basos (auto) Absolute Nucleated RBC Nucleated RBC % VBG pH VBG pCO2 VBG pO2 VBG HCO3 VBG O2 Saturation VBG Base Excess Sodium 138 Potassium 3.9 Chloride 107 Carbon Dioxide 20 L Anion Gap 11 BUN 17 Creatinine 1.13 Est GFR ( Amer) 82.8 Est GFR (Non-Af Amer) 68.4 BUN/Creatinine Ratio 15.0 Glucose 166 H POC Glucose (mg/dL) 135 H 159 H Lactic Acid Calcium 8.0 L Total Bilirubin AST ALT Alkaline Phosphatase Total Protein Albumin Globulin Albumin/Globulin Ratio Urine Color Urine Appearance Urine pH Ur Specific [place] Urine Protein Urine Ketones Urine Blood Urine Nitrate Urine Bilirubin Urine Urobilinogen Ur Leukocyte Esterase Urine Glucose 06/13/19 06/13/19 05:48 05:54 WBC 11.4 H RBC 4.67 Hgb 14.3 Hct 42 MCV 89 MCH 31 MCHC 34 RDW 13 Plt Count 189 MPV 7.6 Neut % (Auto) Lymph % (Auto) [place] % (Auto) Eos % (Auto) Baso % (Auto) Absolute Neuts (auto) Absolute Lymphs (auto) Absolute Monos (auto) Absolute Eos (auto) Absolute Basos (auto) Absolute Nucleated RBC Nucleated RBC % VBG pH VBG pCO2 VBG pO2 VBG HCO3 VBG O2 Saturation VBG Base Excess Sodium Potassium Chloride Carbon Dioxide Anion Gap BUN Creatinine Est GFR ( Amer) Est GFR (Non-Af Amer) BUN/Creatinine Ratio Glucose POC Glucose (mg/dL) 174 H Lactic Acid Calcium Total Bilirubin AST ALT Alkaline Phosphatase Total Protein Albumin Globulin Albumin/Globulin Ratio Urine Color Urine Appearance Urine pH Ur Specific [place] Urine Protein Urine Ketones Urine Blood Urine Nitrate Urine Bilirubin Urine Urobilinogen Ur Leukocyte Esterase Urine Glucose Studies: NA Nutrition: Diabetic diet Impression: 53M with known PMH of DM (diagnosed 2007, labile, on insulin), liver abscess AND DKA (02/2018), history of etoh abuse (last drink 02/2018), intermittent diarrhea x 6 months, and HLD, presents with complaints of nausea, vomiting, fatigue, and dehydration since 06/11/19. He notes intermittent diarrhea over the past 6 months, after eating, has not followed up with anyone regarding that yet. He sees Dr Teague, saw him last month. States his BGs are difficult to control at home, they can be 400 and then 50. He states he takes his insulin as directed. He denies feeling sick prior to yesterday and denies sick contacts. 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 On admission his BG was 481, anion gap 24, creatinine 1.40, tachycardic into 120's, SBP 120's. He was given 2L IVF and started on insulin drip. 06/12: Insulin drip weaned off, transitioned to terminal operator and sliding scale. 1. DKA 2. HLD 3. DM type 2 Plan: NEURO: - No active issues CVS: - No active issues. HR has normalized PULM: - No active issues GI: - Continue consistent carb diet. RENAL: - No active issues - Monitor I/O ENDOCRINE: - Overnight patient was started on insulin glargine 15units. - Added insulin lispro sliding scale this AM. Tolerating PO diet - Discontinued IVF, anion gap has closed - Patient to follow up with Dr Teague in the next couple weeks HEME: - No active issues - SCDs for DVT prophylaxis. OOB. ID: - Remains afebrile - WBC has normalized - No signs or symptoms of infection Disposition: stable, patient is ready for floor Code status: full code
[2019-06-13] MEDS: Insulin LISPRO* 1 UNITS UNIT SUBCUT SCH ×3 (12:37→21:37)
[2019-06-13] MEDS: Atorvastatin* 80 MG TAB PO SCH (21:36)
[2019-06-14] MEDS: Thiamine TAB* 100 MG TAB PO SCH (09:05)
[2019-06-14] MEDS: Aspirin EC TAB* 81 MG TAB.EC PO SCH (09:05)
[2019-06-14] MEDS: Multivitamins/Minerals TAB PO SCH (09:05)
[2019-06-14] MEDS: Insulin LISPRO* 1 UNITS UNIT SUBCUT SCH ×4 (09:05→22:02)
--- NOTE | 2019-06-14 18:14 | PN ---
Subjective Date of Service: 06/14/19 Interval History: Mr. Felix states that he was feeling well until appx 3 days ago when he developed n/v. He had decreased PO intake for 2 days and came to ER on day 2 of illness, at which time he was found to be in DKA. He was treated and weaned off IV insulin. He reports that he is feeling well. He has no complaints and denies n/v. He reports diarrhea within the last 2-3 weeks, but none recently. He has a good appetite and is tolerating PO intake well. He has no other complaints today. Objective Active Medications: Aspirin (Aspirin Ec Tab*) 81 mg PO DAILY [facility] Last Admin: 06/14/19 09:05 Dose: 81 mg Atorvastatin Calcium (Lipitor*) 80 mg PO BEDTIME [facility] Last Admin: 06/13/19 21:36 Dose: 80 mg Dextrose (D50w Syringe 50 Ml*) 12.5 gm IV PUSH .FOR FS < 60 - SS PRN PRN Reason: FS < 60 Insulin Glargine (Lantus(*)) 15 units SUBCUT Q24HR@2100 [facility] Last Admin: 06/13/19 21:37 Dose: 15 units Insulin Human Lispro (Humalog*) 0 units SUBCUT ACHS [facility]; Protocol Last Admin: 06/14/19 17:25 Dose: 2 units Multivitamins/Minerals (Theragran/Minerals Tab*) 1 tab PO DAILY [facility] Last Admin: 06/14/19 09:05 Dose: 1 tab Ondansetron HCl (Zofran Inj*) 4 mg IV Q6H PRN PRN Reason: NAUSEA Last Admin: 06/12/19 16:25 Dose: 4 mg Thiamine HCl (Vitamin B-1 Tab*) 100 mg PO DAILY [facility] Last Admin: 06/14/19 09:05 Dose: 100 mg Vital Signs: Temp Pulse Resp BP Pulse Ox 98.3 F 66 18 127/76 99 06/14/19 16:05 06/14/19 16:05 06/14/19 16:05 06/14/19 16:05 06/14/19 16:05 Oxygen Devices in Use Now: None Appearance: Mr. Felix is a middle-aged white male who is sitting up in bed. He appears well, NAD, stated age; pleasant, cooperative. Eyes: No Scleral Icterus, PERRLA Ears/Nose/Mouth/Throat: NL Teeth, Lips, Gums, Clear Oropharnyx, Mucous Membranes Moist Neck: NL Appearance and Movements; NL JVP, Trachea Midline Respiratory: Symmetrical Chest Expansion and Respiratory Effort, Clear to Auscultation Cardiovascular: NL Sounds; No Murmurs; No JVD, RRR, No Edema Abdominal: NL Sounds; No Tenderness; No Distention, No Hepatosplenomegaly Extremities: No Edema, No Clubbing, Cyanosis Neurological: Alert and Oriented x 3 Result Diagrams: 06/13/19 05:48 06/13/19 05:48 Microbiology and Other Data: Microbiology 06/12/19 10:55 Aerobic Blood Culture - Preliminary Blood Venous No Growth Day 2 Anaerobic Blood Culture - Preliminary No Growth Day 2 06/12/19 10:55 Aerobic Blood Culture - Preliminary Blood Venous No Growth Day 2 Anaerobic Blood Culture - Preliminary No Growth Day 2 Assess/Plan/Problems-Billing Assessment: Mr Felix is a 53 yom PMHx DM ID, h/o liver abscess, h/o DKA, h/o ETOH abuse who presented to the ER with complaints of nausea, vomiting, and was found to be in DKA requiring insulin drip. - Patient Problems (1) DKA (diabetic ketoacidoses) Current Visit: No Status: Acute Code(s): E13.10 - OTH DIABETES MELLITUS WITH KETOACIDOSIS WITHOUT COMA SNOMED Code(s): 066606747 Comment: -resolved -pt with provavle viral gastroenteritis as inciting factor -DKA with AG 24, on insulin drip, which was weaned off -transitioned to glargine, lispro ss after IV d/c (2) Diabetes mellitus Comment: -DM with labile BS despite compliance -pt uses sliding scale 70/30 insulin at home; follows with Dr. Teague, who pt states plans to transition him to 50/50 insulin -BS 180-270's today -continue glargine, ss lispro and plan for d/c on home regimen with close follow up with endocrinology (3) N&V (nausea and vomiting) Comment: -resolved -presented with 2d n/v, recent diarrhea found to be in DKA -likely viral gastroenteritis -now tolerating regular diet without n/v (4) HLD (hyperlipidemia) Comment: -continue atorvastatin (5) DVT prophylaxis Comment: -SCDs (6) Full code status Comment: Status and Disposition: Inpatient. Discharge when stable.
[2019-06-14] MEDS: Atorvastatin* 80 MG TAB PO SCH (21:30)
[2019-06-14] MEDS: Insulin GLARGINE(*) 1 UNITS UNIT SUBCUT SCH (22:02)
[2019-06-15 06:09] LABS: ABS Eosinophils 0.1 10^3/ul (0-0.6); ABS Lymphocytes 1.8 10^3/ul (1.0-4.8); ABS Monocytes 0.4 10^3/ul (0-0.8); ABS Neutrophils 1.7 10^3/ul (1.5-7.7); Eosinophil % 2.2 %; Hematocrit 43 % (42-52); Hemoglobin 15.4 g/dL (14.0-18.0); Lymphocyte % 45.3 %; Mean Corpuscular HGB Conc 35 g/dL (31-36); Mean Corpuscular Hemoglobin 31 pg (27-31); Mean Corpuscular Volume 87 fL (80-94); Mean Platelet Volume 7.3 fL (7.4-10.4); Platelet Count 181 10^3/uL (150-450); Red Blood Count 4.99 10^6 /uL (4.18-5.48); Red Cell Distribution Width 13 % (10-15)
[2019-06-15 06:23] LABS: BUN/Creatinine Ratio 17.4 (8-20); Calcium 8.4 mg/dL (8.6-10.3); EGFR African American 104.9 (>60); EGFR Non-African American 86.7 (>60); Potassium 3.5 mmol/L (3.5-5.0)
[2019-06-15 08:41] VITALS: BP 130/65
[2019-06-15] MEDS: Insulin LISPRO* 1 UNITS UNIT SUBCUT SCH (08:54)
[2019-06-15] MEDS: Aspirin EC TAB* 81 MG TAB.EC PO SCH (08:54)
[2019-06-15] MEDS: Multivitamins/Minerals TAB PO SCH (08:54)
[2019-06-15] MEDS: Thiamine TAB* 100 MG TAB PO SCH (08:54)
--- NOTE | 2019-06-15 10:21 | DS ---
DISCHARGE SUMMARY: ADDENDUM: The patient did have an ERICKA at admission with a creatinine of 1.40, this is likely due to dehydration and resolved with IV fluid administration. EMMA ZAFAR [id number]/[facility] #: [id number] [facility] CENTERChalreen
--- NOTE | 2019-06-15 11:26 | DS ---
CC: Dr. Danny Berkowitz; Dr. Chas Teague* DATE OF ADMISSION: 06/12/2019. DATE OF DISCHARGE: 06/15/2019. PRIMARY CARE PHYSICIAN: Dr. Danny Berkowitz. OTHER PROVIDERS: Dr. Chas Teague. ATTENDING PHYSICIAN: Dr. Ashlyn Diaz* (dictated by EMMA oDwney). PRIMARY DIAGNOSES: 1. Diabetic ketoacidosis. 2. Leukocytosis without fever or signs or symptoms of infection, suspected to be due to dehydration, resolved at discharge, reactive due to DKA. 3. Acute kidney injury. STUDIES WHILE IN THE HOSPITAL: 1. Chest x-ray: Impression: No active cardiopulmonary disease. 2. Urinalysis: 2+ ketones, 3+ glucose. 3. Blood cultures times two, no growth to date. DISCHARGE MEDICATIONS: Home medications: 1. Acetaminophen 650 mg p.o. q.4 hours prn. 2. Aspirin 81 mg p.o. daily. 3. Insulin 70/30 sliding scale t.i.d. 4. Multivitamin/minerals one tab p.o. daily. 5. Rosuvastatin 40 mg p.o. at bedtime. 6. Thiamine 100 mg p.o. daily. Medication changes: None. HISTORY OF PRESENT ILLNESS/HOSPITAL COURSE: Mr. Felix is a 53-year-old male with a past medical history of diabetes mellitus, insulin-dependent with labile blood sugars who follows with Dr. Teague, history of liver abscess and DKA, history of alcohol abuse who presented to the ER with complaints of nausea, vomiting, dehydration, and fatigue on June 11. For full and complete details , please see the history and physical dictated by Dr. Bah. In short, the patient presents with the above symptoms. Upon arrival to the ER, the patient had a blood sugar of 481 with an anion gap of 24, lactic acidosis. VBG pH was 7.17. He was also noted to have an acute kidney injury with a creatinine of 1.4. The patient was admitted to the hospital with DKA and started on insulin drip and IV fluids. Once the patient's anion gap closed, he was transitioned off of IV insulin and started on subcutaneous long-acting insulin and sliding scale Lispro. For the remainder of his stay, the patient's blood sugar was variable from 130s to 330s. We discussed options for discharge and the patient does follow with Dr. Teague who he will be seeing at the end of next month, at which time Dr. Teague plans to transition the patient to a different insulin. With this, we have decided to keep the patient on his current dose of 70/30 insulin with sliding scale. We have discussed signs and symptoms of hypoglycemia and how to manage this. Also discussed calling his primary care provider, bargeman, or presenting to the ER if blood sugar remains greater than 500 with treatment. The patient understands this and is agreeable. The patient was noted to have a leukocytosis at admission. He denies cough, fever, chills, myalgias, or arthralgias. He does report a recent history of nausea, vomiting, and diarrhea, likely related to a viral gastroenteritis which has since subsided. This viral gastroenteritis is likely the cause of his diabetic ketoacidosis, his episode of DKA. Nausea, vomiting and diarrhea have since subsided. His leukocytosis improved. My suspicion is that his leukocytosis was due to dehydration and reactive due to DKA, nausea/vomiting/ diarrhea. At discharge, Mr. Felix states that he is feeling well. He denies dizziness, lightheadedness, vision changes, headache, chest pain, shortness of breath, cough, fever, chills, abdominal pain, nausea, vomiting, diarrhea, constipation, myalgias and arthralgias. He reports he had a bowel movement that was somewhat loose this morning. All his questions were answered. Mr. Felix is stable for discharge to home. PHYSICAL EXAMINATION: General: Mr. Felix is a well-developed, well-nourished , middle-aged white male who is sitting in his chair. He appears to be in no acute distress and is resting comfortably. Vital signs: Temperature 98.2 temporal, heart rate 70, respiratory rate 12, oxygen saturation 98 percent on room air, blood pressure 130/65. HEENT: PERRL, EOMI, nonicteric sclerae. Hearing is grossly intact. Oral mucous membranes are moist. The patient has poor dentition. There are no lesions in the oral mucosa. Posterior pharynx is clear without erythema or exudates. Tongue is at midline. Palate elevated symmetrically. Cardiovascular: Regular rate and rhythm with S1, S2 present. No murmurs, rubs, clicks, or gallops. There is no JVD or peripheral edema. Radial and pedal pulses are palpable. Pulmonary: Symmetrical chest expansion without use of accessory muscles. Clear to auscultation bilaterally without rhonchi, wheezes, or rales. Abdomen: Bowel sounds in all quadrants. The abdomen is soft. There is very mild tenderness to palpation diffusely. Musculoskeletal: Full range of motion without pain or deformities. Neuro: The patient is awake. He is alert and oriented times three. Cranial nerves II through XII are grossly intact. He moves all of his extremities with a motor strength of 5/5 bilaterally in upper and lower extremities. DISCHARGE PLAN: Mr. Felix will be discharged to home. MEDICATIONS: No changes. Continue current regime and follow-up with Dr. Teague as scheduled. EDUCATION: 1. Continue to monitor blood sugars regularly and call bargeman or return to ER for blood sugars greater than 500, less than 60. 2. Follow-up with primary care provider in four to seven days. 3. Follow-up with Dr. Teague July 19 as scheduled. 4. Return to the ER or nearest hospital if you experience any return or worsening of symptoms, chest pain or discomfort, shortness of breath, dizziness , lightheadedness, loss of consciousness, high fevers, chills, night sweats or any other worrisome signs or symptoms. Return for glucose less than 60 or greater than 500 if unable to reach primary care provider or bargeman. CONDITION ON DISCHARGE: Good. DIET: ADA/diabetic. ACTIVITY: As tolerated. This is a summarized report of a complex medical history and hospital stay. For further details, please see the entire medical record. TIME SPENT: Approximately 30 minutes were spent on this discharge, greater than half of that time was spent [id number] with the patient discussing discharge plans and instructions. ADDENDUM TO DISCHARGE SUMMARY: The patient did have an ERICKA at admission with a creatinine of 1.40, this is likely due to dehydration and resolved with IV fluid administration. EMMA ZAFAR [id number]/[facility] #: [id number]/[facility] #: [id number] KINAJL
== END 2019-06-15 10:14 | disposition home or self-care (01) | DRG 420 ==
LOC: ED 10:11 → ICU 13:01 → SSU 06-13 16:16
PROVIDERS: ADMIT Internal Medicine; ATTEND Internal Medicine
DX: E11.10 Type 2 diabetes mellitus with ketoacidosis without coma (principal); N17.9 Acute kidney failure, unspecified; E87.2 Acidosis; D72.829 Elevated white blood cell count, unspecified; E86.0 Dehydration; E78.00 Pure hypercholesterolemia, unspecified; E78.5 Hyperlipidemia, unspecified; Z87.891 Personal history of nicotine dependence; Z88.1 Allergy status to other antibiotic agents; Z88.2 Allergy status to sulfonamides; Z79.4 Long term (current) use of insulin; Z79.899 Other long term (current) drug therapy; Z79.82 Long term (current) use of aspirin
CPT/HCPCS: 36415; 71046; 80048; 80053; 81003; 82803; 82947; 83036; 83605; 85025; 85027; 87040; 96361; 96374; 99285; A9270-GY; J2405; J2543; J3370

== ENCOUNTER 2020-05-23 16:39 | Inpatient (IN) ==
[2020-05-23] MEDS ORDERED: Lactated Ringers 1000 ml BAG 1,000 ML IV ONE ×3 (17:02→19:30)
[2020-05-23] MEDS ORDERED: Ondansetron 4 mg VIAL 2 MG/ML 2 ml VIAL IV ONE (17:03)
[2020-05-23 17:54] LABS: ABS Lymphocytes 1.3 10^3/ul (1.0-4.8); ABS Monocytes 1.1 10^3/ul (0-0.8); ABS Neutrophils 13.1 10^3/ul (1.5-7.7); Hematocrit 50 % (42-52); Hemoglobin 17.4 g/dL (14.0-18.0); Lymphocyte % 8.3 %; Mean Corpuscular HGB Conc 35 g/dL (31-36); Mean Corpuscular Hemoglobin 31 pg (27-31); Mean Corpuscular Volume 90 fL (80-94); Mean Platelet Volume 7.3 fL (7.4-10.4); Platelet Count 292 10^3/uL (150-450); Red Blood Count 5.58 10^6 /uL (4.18-5.48); Red Cell Distribution Width 13 % (10-15); White Blood Count 15.5 10^3/uL (3.5-10.8)
[2020-05-23 18:11] LABS: Albumin 4.6 g/dL (3.2-5.2); Albumin/Globulin Ratio 1.6 (1-3); BUN/Creatinine Ratio 22.9 (8-20); C Reactive Protein 13.61 mg/L (<8.01); Calcium 10.1 mg/dL (8.6-10.3); EGFR African American 62.3 (>60); EGFR Non-African American 51.5 (>60); Globulin 2.8 g/dL (2-4); Magnesium 2.2 mg/dL (1.9-2.7); Total Bilirubin 1.2 mg/dL (0.2-1.0); Total Protein 7.4 g/dL (6.4-8.9)
[2020-05-23 18:12] LABS: Troponin I 0.01 ng/mL (<0.03)
[2020-05-23 18:18] LABS: Potassium 5.6 mmol/L (3.5-5.0)
[2020-05-23] MEDS ORDERED: Insulin Infusion 100unit/100mL 100 UNIT/100 ML BAG IV ONE (18:18)
[2020-05-23 18:59] LABS: Urine Appearance Clear; Urine Bilirubin Negative (Negative); Urine Blood Negative (Negative); Urine Color Yellow; Urine Glucose 3+(>=500 mg/dL) (Negative); Urine Ketones 2+ (Negative); Urine Nitrite Negative (Negative); Urine Protein Negative (Negative); Urine Specific Gravity 1.026 (1.002-1.030); Urine Urobilinogen Negative (Negative)
[2020-05-23] MEDS ORDERED: Ondansetron 4 mg VIAL 2 MG/ML 2 ml VIAL IV PRN (19:24)
[2020-05-23] MEDS ORDERED: Lactated Ringers 1000 ml BAG 1,000 ML IV SCH ×2 (20:00)
[2020-05-23] MEDS ORDERED: Thiamine 100 MG/ML 2 ml VIAL (200 mg) IM ONE (20:01)
[2020-05-23] MEDS ORDERED: Piperacillin/Tazobac ADVAN 3.375 GM in NS 0.9% 100 ml BAG 100 ML IV ONE (20:58)
[2020-05-23] MEDS ORDERED: Zosyn per Pharmacy NOTE FOLLOW UP SCH (21:00)
[2020-05-23] MEDS ORDERED: D5NS 0.9% 1000 ml BAG 1,000 ML IV SCH (23:10)
[2020-05-23] MEDS: Enoxaparin 40 MG/0.4 ML SYR SUBCUT SCH (23:21)
[2020-05-23 23:25] LABS: BUN/Creatinine Ratio 22.2 (8-20); Calcium 9.1 mg/dL (8.6-10.3); EGFR African American 72.7 (>60); EGFR Non-African American 60.1 (>60); Potassium 4.5 mmol/L (3.5-5.0)
[2020-05-24] MEDS ORDERED: Lactated Ringers 1000 ml BAG 1,000 ML IV ONE (00:37)
[2020-05-24 02:46] LABS: BUN/Creatinine Ratio 20.3 (8-20); Calcium 8.8 mg/dL (8.6-10.3); EGFR African American 74.8 (>60); EGFR Non-African American 61.8 (>60); Potassium 4.2 mmol/L (3.5-5.0)
[2020-05-24] MEDS ORDERED: Dextrose 50% Syringe 50 ml 25 GM/50 ML SYRINGE IV PUSH PRN (03:28)
[2020-05-24] MEDS: ZOSYN 3.375 GM Q8H per EXTENDED INFUSION IV SCH ×3 (04:17→19:11)
[2020-05-24 05:51] LABS: Hematocrit 42 % (42-52); Hemoglobin 14.7 g/dL (14.0-18.0); Mean Corpuscular HGB Conc 35 g/dL (31-36); Mean Corpuscular Hemoglobin 31 pg (27-31); Mean Corpuscular Volume 88 fL (80-94); Mean Platelet Volume 6.7 fL (7.4-10.4); Platelet Count 243 10^3/uL (150-450); Red Blood Count 4.78 10^6 /uL (4.18-5.48); Red Cell Distribution Width 13 % (10-15); White Blood Count 15.9 10^3/uL (3.5-10.8)
[2020-05-24 05:53] LABS: ABS Basophils 0.1 10^3/ul (0-0.2); ABS Lymphocytes 2.7 10^3/ul (1.0-4.8); ABS Monocytes 1.6 10^3/ul (0-0.8); ABS Neutrophils 11.5 10^3/ul (1.5-7.7); Eosinophil % 0.2 %; Lymphocyte % 17.1 %
[2020-05-24] MEDS ORDERED: Insulin LISPRO* FOR INSULIN PUMP SUBCUT SCH (06:00)
[2020-05-24 06:11] LABS: Albumin 3.6 g/dL (3.2-5.2); Albumin/Globulin Ratio 1.9 (1-3); Calcium 8.7 mg/dL (8.6-10.3); EGFR African American 76.9 (>60); EGFR Non-African American 63.6 (>60); Globulin 1.9 g/dL (2-4); Magnesium 1.8 mg/dL (1.9-2.7); Potassium 3.8 mmol/L (3.5-5.0); Total Bilirubin 0.9 mg/dL (0.2-1.0); Total Protein 5.5 g/dL (6.4-8.9)
[2020-05-24 08:02] LABS: Phosphorus 2.3 mg/dL (2.5-5.0)
[2020-05-24] MEDS ORDERED: Insulin GLARGINE 100 un/ml 10 ml VIAL SUBCUT ONE (08:05)
[2020-05-24] MEDS: Aspirin EC 81 mg TAB.EC (enteric coated) PO SCH (08:35)
[2020-05-24] MEDS: Multivitamins/Minerals TAB PO SCH (08:36)
[2020-05-24 13:12] LABS: BUN/Creatinine Ratio 18.3 (8-20); Calcium 8.7 mg/dL (8.6-10.3); EGFR African American 76.9 (>60); EGFR Non-African American 63.6 (>60); Phosphorus 2.1 mg/dL (2.5-5.0); Potassium 4.1 mmol/L (3.5-5.0)
[2020-05-24] MEDS ORDERED: Potassium Phosphate IV 15 MMOLE in NS 0.9% 250 ml 250 ML IVPB ONE (15:00)
[2020-05-24] MEDS: Enoxaparin 40 MG/0.4 ML SYR SUBCUT SCH (19:11)
[2020-05-25] MEDS: ZOSYN 3.375 GM Q8H per EXTENDED INFUSION IV SCH (03:16)
[2020-05-25] MEDS: Multivitamins/Minerals TAB PO SCH (07:55)
[2020-05-25] MEDS: Aspirin EC 81 mg TAB.EC (enteric coated) PO SCH (07:55)
[2020-05-25] MEDS ORDERED: Pneumococcal Vac 23-Polyvalent IM ONE (09:00)
[2020-05-25 10:22] LABS: Hematocrit 47 % (42-52); Hemoglobin 15.6 g/dL (14.0-18.0); Mean Corpuscular HGB Conc 34 g/dL (31-36); Mean Corpuscular Hemoglobin 30 pg (27-31); Mean Corpuscular Volume 91 fL (80-94); Mean Platelet Volume 6.9 fL (7.4-10.4); Platelet Count 195 10^3/uL (150-450); Red Blood Count 5.14 10^6 /uL (4.18-5.48); Red Cell Distribution Width 13 % (10-15); White Blood Count 5.8 10^3/uL (3.5-10.8)
[2020-05-25 11:08] VITALS: BP 120/68
== END 2020-05-25 12:00 | disposition home or self-care (01) | DRG 813 ==
LOC: ED 16:39 → ICU 20:53 → MED 05-24 22:08
PROVIDERS: ADMIT Internal Medicine; ATTEND Hospitalist

== ENCOUNTER 2022-04-09 11:47 | Observation (INO) ==
[2022-04-09] MEDS ORDERED: Lactated Ringers 1000 ml BAG 1,000 ML IV ONE ×2 (12:05→13:17)
[2022-04-09] MEDS ORDERED: Ondansetron 4 mg VIAL 2 MG/ML 2 ml VIAL IV ONE (12:06)
[2022-04-09 12:12] LABS: ABS Lymphocytes 1.3 10^3/ul (1.0-4.8); ABS Monocytes 0.6 10^3/ul (0-0.8); ABS Neutrophils 6.8 10^3/ul (1.5-7.7); Eosinophil % 0.4 %; Hematocrit 52 % (42-52); Hemoglobin 17.2 g/dL (14.0-18.0); Lymphocyte % 15.2 %; Mean Corpuscular HGB Conc 33 g/dL (31-36); Mean Corpuscular Hemoglobin 30 pg (27-31); Mean Corpuscular Volume 92 fL (80-94); Mean Platelet Volume 7.1 fL (7.4-10.4); Platelet Count 228 10^3/uL (150-450); Red Blood Count 5.68 10^6 /uL (4.18-5.48); Red Cell Distribution Width 13 % (10-15); White Blood Count 8.8 10^3/uL (3.5-10.8)
[2022-04-09 12:14] LABS: Venous Bicarbonate HCO3 19.7 mmol/L (24-28)
[2022-04-09 12:51] LABS: Albumin 4.5 g/dL (3.2-5.2); Albumin/Globulin Ratio 1.9 (1-3); Calcium 9.7 mg/dL (8.6-10.3); Creatinine, Serum 1.28 mg/dL (0.67-1.17); Globulin 2.4 g/dL (2-4); Total Bilirubin 1.1 mg/dL (0.2-1.0); Total Protein 6.9 g/dL (6.4-8.9); eGFR CKD-EPI 66.5 (>60)
[2022-04-09] MEDS ORDERED: Dextrose 50% Syringe 50 ml 25 GM/50 ML SYRINGE IV PUSH ONE (13:16)
[2022-04-09 13:48] LABS: High Sensitivity Troponin 1 Hr 5 pg/mL (<20)
[2022-04-09 15:23] LABS: Creatinine, Serum 1.12 mg/dL (0.67-1.17); Potassium 4.6 mmol/L (3.5-5.0); eGFR CKD-EPI 78.1 (>60)
[2022-04-09 17:03] LABS: Urine Appearance Clear; Urine Bilirubin Negative (Negative); Urine Blood Negative (Negative); Urine Color Yellow; Urine Glucose 3+(>=500 mg/dL) (Negative); Urine Ketones 2+ (Negative); Urine Nitrite Negative (Negative); Urine Protein Negative (Negative); Urine Specific Gravity 1.023 (1.002-1.030); Urine Urobilinogen Negative (Negative)
[2022-04-09] MEDS ORDERED: Dextrose 50% Syringe 50 ml 25 GM/50 ML SYRINGE IV PUSH PRN (17:07)
[2022-04-09] MEDS ORDERED: Ondansetron 4 mg VIAL 2 MG/ML 2 ml VIAL IV PRN (17:11)
[2022-04-09] MEDS ORDERED: NS 0.9% 1000 ml BAG 1,000 ML IV SCH ×2 (17:15→23:30)
[2022-04-09 19:52] LABS: Direct Bilirubin 0.2 mg/dL (0.03-0.18); Indirect Bilirubin 0.9 mg/dL (0.3-1.0)
[2022-04-09 21:42] LABS: Calcium 8.7 mg/dL (8.6-10.3); Potassium 4.5 mmol/L (3.5-5.0)
[2022-04-09 21:48] LABS: Creatinine, Serum 1.09 mg/dL (0.67-1.17); eGFR CKD-EPI 80.7 (>60)
[2022-04-10 02:25] LABS: Calcium 8.7 mg/dL (8.6-10.3); Creatinine, Serum 1.11 mg/dL (0.67-1.17); Potassium 4.2 mmol/L (3.5-5.0); eGFR CKD-EPI 78.9 (>60)
[2022-04-10 02:44] LABS: Calcium 8.7 mg/dL (8.6-10.3); Creatinine, Serum 1.15 mg/dL (0.67-1.17); Potassium 4.1 mmol/L (3.5-5.0); eGFR CKD-EPI 75.6 (>60)
[2022-04-10 05:17] LABS: Calcium 8.5 mg/dL (8.6-10.3); Creatinine, Serum 1.13 mg/dL (0.67-1.17); Potassium 4.3 mmol/L (3.5-5.0); eGFR CKD-EPI 77.2 (>60)
[2022-04-10 07:01] LABS: Calcium 8.4 mg/dL (8.6-10.3); Creatinine, Serum 1.08 mg/dL (0.67-1.17); Potassium 4.3 mmol/L (3.5-5.0); eGFR CKD-EPI 81.5 (>60)
[2022-04-10 08:57] LABS: Calcium 8.5 mg/dL (8.6-10.3); Creatinine, Serum 1.18 mg/dL (0.67-1.17); Potassium 4.1 mmol/L (3.5-5.0); eGFR CKD-EPI 73.3 (>60)
[2022-04-10] MEDS ORDERED: Multivitamins/Minerals TAB PO SCH (09:00)
[2022-04-10] MEDS ORDERED: Aspirin EC 81 mg TAB.EC (enteric coated) PO SCH (09:00)
[2022-04-10 11:47] VITALS: BP 118/64
[2022-04-10] MEDS ORDERED: Insulin GLARGINE 100 un/ml 10 ml VIAL SUBCUT ONE (13:02)
== END 2022-04-10 15:05 | disposition home or self-care (01) ==
LOC: EDHOLD 11:47 → ED 11:47 → SUATTDRO 15:55 → MEDTELE 21:50
PROVIDERS: ADMIT Internal Medicine; ATTEND Internal Medicine Hematology & Oncology